=== PATIENT | female | born 1940 | race Caucasian/White ===

== ENCOUNTER 2017-01-03 11:08 | Day surgery (SDC) | payer MEDICARE, MEDICAID ==
--- NOTE | 2017-01-03 00:18 | HP ---
HISTORY OF PRESENT ILLNESS: Kay Pemberton is a 76-year-old female, who was brought in by E . She lives at [facility]. She dialyzes Monday, Monday, and Monday at [facility], she is followed by Dr. Reno. She has a poorly functioning dialysis catheter right IJ, I have been asked to see regarding exchange. She arrives to my office today. We will plan this tomorrow. The patient had a left arm fistula on 12/11/2016, subsequent thrombectomy on 12/06/2016 and at that time, a thro mbectomy was not evident while fistula had thrombosed. She has outflow through the cephalic and bas ilic vein anatomically cephalic vein preferred. Davis catheter placed through the cephalic vein wit hout restriction. The patient in the office today has a good thrill and bruit over the fistula, it seemed to have prominent outflow to the basilic vein. She has arrives to office on the stretcher. Plan is to replace her dialysis catheter tomorrow. In fact the catheter does work, but it is very s low. MEDICATIONS: Levothyroxine daily 88 mcg, amlodipine 5 mg a day, Zetia daily, atenolol 25 mg a day, trazodone 50 mg at bedtime, omeprazole 40 mg a day, bupropion daily, Bactrim-DS, Folvite, ferrous cassidy lfate, Procrit, and Rocaltrol. PAST MEDICAL HISTORY: Hypothyroidism, hypertension, hypercholesterolemia, right leg weakness, mobil ity in a wheelchair, nonambulatory for 5 years, GERD, end-stage renal disease on maintenance dialysi s Monday, Monday, and Monday at [facility]. PAST SURGICAL HISTORY: Back surgeries x3, knee surgeries, laparoscopic cholecystectomy, primary fis lani with subsequent thrombectomy and revision on 12/06/2016. REVIEW OF SYSTEMS: Ten-point noncontributory. PHYSICAL EXAMINATION: VITAL SIGNS: 5 feet 9 inches, 98.6 degrees. HEAD, EYES, EARS, NOSE AND THROAT: Unremarkable. LUNGS: Clear to auscultation. CARDIAC: Regular without murmur or gallop. ABDOMEN: Soft and nontender. EXTREMITIES: Left arm fistula with good thrill and bruit, well-healed surgical incision, a right IJ dialysis catheter. ASSESSMENT AND PLAN: Dysfunctional catheter. We will plan exchange. She understands the risks and benefits and consents.
[2017-01-03 11:55] LABS: #Eosinphils 0.1 thou/uL (0.0-0.7); #Lymphocytes 1.1 thou/uL (1.20-3.40); #Monocytes 0.5 thou/uL (0.11-0.59); #Neutrophils 3.8 thou/uL (1.40-6.50); %Basophils 0.8 % (0.0-1.0); %Eosinophils 2.7 % (0.0-10.0); %Monocytes 8.7 % (0.0-10.0); Hematocrit 35.8 % (36.0-47.0); Mean Platelet Volume 8.7 fL (7.4-10.4); Red Blood Cell (RBC) Count 3.58 mill/uL (4.20-5.40); White Blood Cell (WBC) Count 5.6 thou/uL (4.8-10.8)
[2017-01-03 12:22] LABS: Anion Gap 13 mmol/L (10-20); BUN (Urea Nitrogen) 29 mg/dL (9.8-20.1); Calc. Creatinine Clearance 0 mL/min (70-130); Calcium 8.9 mg/dL (7.8-10.44); Carbon Dioxide 31 mmol/L (23-31); Chloride 102 mmol/L (98-107); Estimated GFR-MDRD 13
[2017-01-03] MEDS ORDERED: Fentanyl 100 MCG/2 ML VIAL ONE (14:15)
[2017-01-03] MEDS ORDERED: Heparin 10,000 UNITS/1 ML VIAL ONE (14:16)
[2017-01-03] MEDS ORDERED: Sodium Chloride 0.9% 10 ML ONE (14:16)
[2017-01-03] MEDS ORDERED: Bupivacaine HCl 0.5%/Epinephrine 1:200,000/PF 30 ml Vial ONE (14:16)
[2017-01-03] MEDS ORDERED: Levofloxacin 500 mg/D5W 100 ml Premix Bag ONE (14:23)
[2017-01-03] MEDS ORDERED: Lidocaine 2% PF 10 ML AMP (For Epidural Use) ONE (14:39)
[2017-01-03] MEDS ORDERED: Propofol 200 MG/20 ML VIAL ONE (14:39)
--- NOTE | 2017-01-03 17:48 | RAD ---
PORTABLE CHEST: 01/03/17 HISTORY: Dialysis catheter placement to assess central line position. COMPARISON: 11/30/16. A large caliber dual lumen central line has been placed via the right jugular. The line overlies th e SVC. Mild cardiomegaly again noted. The lung covarrubias are clear. IMPRESSION: Mild cardiomegaly with no evidence of acute lung process. POS: [facility]
--- NOTE | 2017-01-03 21:30 | OP ---
DATE OF PROCEDURE: PREOPERATIVE DIAGNOSIS: End-stage renal disease, immature left arm fistula, dysfunctional dialysis catheter, right internal jugular. POSTOPERATIVE DIAGNOSIS: End-stage renal disease, immature left arm fistula, dysfunctional dialysis catheter, right internal jugular. PROCEDURE: Removal of right IJ cuffed tunnel dialysis catheter. Placement of new right IJ cuffed t unnel dialysis catheter. SURGEON: Dr. Clifton Randhawa ANESTHESIA: Intravenous sedation and local 0.5% Marcaine with epinephrine 30 mL mixed with 2% Xyloc samir 10 mL. Fluoroscopy used. PROCEDURE IN DETAIL: The patient was taken to the operating room where under intravenous sedation, the sutures from the old catheter removed. The cuff freed and the chest and neck prepared with chlo raprep, draped in routine fashion. Local anesthetic infiltrated into skin and subcutaneous tissue a bout the operative site. Incision made in the right side of the neck and the old hemodialysis letty ter pulled out slightly, controlled with hemostats, transected, and the old hemodialysis catheter re moved. ChloraPrep reprepped the area and then J-wire threaded through the old hemodialysis catheter and a slightly longer catheter tunneled between a new exit site infraclavicular over the right ches t to the neck incision, placing the fabric cuff beneath the skin incision and catheter secured with 2 interrupted sutures of 3-0 nylon, Biopatch applied. Dilator and pull-away sheath placed over the J-wire and J-wire and dilator removed. Catheter placed through a pull-away sheath. Pull-away sheat h removed. Platysma approximated with 4-0 Monocryl, skin with subdermal 4-0 Monocryl and DermaGlue applied. Dermabond applied. Each port aspirated blood and flushed with saline solution and then he parinized saline solution 1000 units heparin per mL indicated volume of the port. Fluoroscopy revea led good line placement.
== END 2017-01-04 16:55 | disposition home or self-care (01) ==
LOC: SDC 11:08
PROVIDERS: ATTEND Specialist
PROC: 05HM33Z Insertion of Infusion Device into Right Internal Jugular Vein, Percutaneous Approach (ICD-10-PCS; principal; 2017-01-03)
PROC: B513ZZA Fluoroscopy of Right Jugular Veins, Guidance (ICD-10-PCS; 2017-01-03)
DX: I12.0 Hypertensive chronic kidney disease with stage 5 chronic kidney disease or end stage renal disease (principal); T82.898A Other specified complication of vascular prosthetic devices, implants and grafts, initial encounter; D63.1 Anemia in chronic kidney disease; N18.6 End stage renal disease; K21.9 Gastro-esophageal reflux disease without esophagitis; M16.11 Unilateral primary osteoarthritis, right hip; E03.9 Hypothyroidism, unspecified; Z74.09 Other reduced mobility; Z79.899 Other long term (current) drug therapy; Z88.0 Allergy status to penicillin; Z99.3 Dependence on wheelchair; Z99.2 Dependence on renal dialysis; Z90.49 Acquired absence of other specified parts of digestive tract; Z98.890 Other specified postprocedural states; Z87.891 Personal history of nicotine dependence
CPT/HCPCS: 36582; 71010; 80048; 85025; C1752; C1769; A4216; J0670; J1644; J1956; J2001; J2704; J3010

== ENCOUNTER 2017-02-14 11:44 | Day surgery (SDC) | payer MEDICARE, MEDICAID ==
--- NOTE | 2017-02-10 05:50 | HP ---
HISTORY OF PRESENT ILLNESS: Kay Pemberton is a 76-year-old female arrives in my office in a [facility]. Patient is a resident of [facility]. She is followed by Dr. Orlando and Dr. Serra and Dr. Reno. She dialyzes at [facility] Monday, Monday, and Monday; [facility]. She has end-stage renal disease. The patient had a left arm fistula on 12/11/2016, subsequent thrombectomy 12/06/2016 and at that time of the thrombectomy, it was not evident why the fistula had thrombosed. Intraoperative angiograms revealed good cephalic vein outflow. There seemed to be good inflow fro m the proximal radial artery once thrombus was cleared. She presents to my office today and her fis lani is thrombosed. She has recently good veins in her right arm, but it is felt that the left nond ominant arm should be able to be salvaged. Plan is to revise her arterial inflow from her proximal radial artery to basilic vein using her antecubital vein or basilic vein. MEDICATIONS: Levothyroxine 88 mcg a day, amlodipine 5 mg a day, Zetia daily, atenolol 25 mg a day, trazodone 50 mg at bedtime, omeprazole 40 mg a day, Bupropion daily, ferrous sulfate, Procrit, Rocal trol. PAST MEDICAL HISTORY: Hypothyroidism, hypertension, hypercholesterolemia, right leg weakness, mobil ity in a wheelchair, nonambulatory for 5 years, GERD, end-stage renal disease on maintenance dialysi s Monday, Monday, and Monday at [facility], followed by Dr. Reno. PAST SURGICAL HISTORY: Back surgeries x3, knee surgeries, laparoscopic cholecystectomy, primary fis lani, subsequent thrombectomy and revision subsequent to exchange of her catheters REVIEW OF SYSTEMS: Ten point noncontributory. PHYSICAL EXAMINATION: VITAL SIGNS: 112/65, 69, 99 degrees. HEENT: Unremarkable. LUNGS: Clear to auscultation. CARDIAC: Regular rate and rhythm without murmur or gallop. ABDOMEN: Soft, nontender. EXTREMITIES: Left arm fistula, no thrill or bruit. Palpable radial pulses. ASSESSMENT AND PLAN: Thrombosed left arm fistula. Planned revision. She understands the risks and benefits and consents. Planned this as an outpatient.
[2017-02-13 11:56] VITALS: BMI 25.1
[2017-02-14] MEDS ORDERED: Fentanyl 100 MCG/2 ML VIAL ONE ×3 (13:57→16:51)
[2017-02-14] MEDS ORDERED: Levofloxacin 500 mg/D5W 100 ml Premix Bag ONE (14:05)
[2017-02-14] MEDS ORDERED: Heparin 5,000 UNITS/ML VIAL ONE (14:41)
[2017-02-14] MEDS ORDERED: Bupivacaine PF 0.5% 30 ML VIAL ONE (14:42)
[2017-02-14] MEDS ORDERED: Lidocaine 2% w/Epinephrine 1:200K 20 ML VIAL ONE (14:43)
[2017-02-14] MEDS ORDERED: Protamine Sulfate 50 MG/5 ML VIAL ONE (14:53)
[2017-02-14] MEDS ORDERED: Ropivacaine 0.5% HCl/PF (150 MG/30 ML VIAL) ONE (15:20)
[2017-02-14] MEDS ORDERED: Iothalamate Meglumine 60% 50 ML VIAL FS ONE (15:38)
[2017-02-14] MEDS ORDERED: Heparin 10,000 UNITS/ 10 ML VIAL ONE (17:36)
--- NOTE | 2017-02-14 21:35 | OP ---
DATE: 02/14/2017 PREOPERATIVE DIAGNOSIS: End-stage renal disease, thrombosed fistula, left arm. POSTOPERATIVE DIAGNOSIS: End-stage renal disease, thrombosed fistula, left arm. PROCEDURES: Thrombectomy, left arm primary arteriovenous fistula, cephalic vein with conversion of arterial inflow from the proximal radial artery to the brachial artery. SURGEON: Dr. Clifton Randhawa. ANESTHESIA: Regional, intravenous sedation, local 0.5% Marcaine, 30 mL mixed with 2% Xylocaine with epinephrine, 10 mL mixture used. PROCEDURE: Patient taken to the operating room where under regional anesthesia, left upper extremit y was prepared with chloraprep, draped in routine fashion. Incision made in the proximal volar fore arm through the old incision across the antecubital fossa superiorly. Incision carried through skin and subcutaneous tissue. Cephalic vein identified, dissected free, dissected down to the arterial inflow, was communication to the basilic vein. Dissection carried down to near the arterial inflow and then the stump ligated with a 6-0 Prolene to and fro locking suture. Patient given 5000 units o f heparin intravenously. Brachial artery dissected free. Thrombectomy performed with a 5-Suzanne c atheter, removing a small amount of clot, otherwise flushed with heparinized saline solution without resistance. The Suzanne catheter placed more than 40 cm without restriction. At this point, brach ial artery was clamped proximally and distally and longitudinal arteriotomy made sharply and a annabelle l size good caliber brachial artery and the cephalic vein spatulated over branch point and end vein to side brachial artery anastomosis created with continuous suture of 6-0 Prolene. Surgicel applied . Vascular clamps were released and there was good flow in the fistula evident by Doppler interroga tion and palpation. Good hemostasis noted. Subcutaneous tissues approximated with 3-0 Monocryl, sk in with subdermal 4-0 Monocryl and DermaGlue applied.
== END 2017-02-14 18:43 | disposition home or self-care (01) ==
LOC: SDC 11:44
PROVIDERS: ATTEND Specialist
PROC: 031C0AF Bypass Left Radial Artery to Lower Arm Vein with Autologous Arterial Tissue, Open Approach (ICD-10-PCS; principal; 2017-02-14)
DX: I12.0 Hypertensive chronic kidney disease with stage 5 chronic kidney disease or end stage renal disease (principal); N18.6 End stage renal disease; E03.9 Hypothyroidism, unspecified; E78.00 Pure hypercholesterolemia, unspecified; K21.9 Gastro-esophageal reflux disease without esophagitis; Z88.0 Allergy status to penicillin; Z79.899 Other long term (current) drug therapy; Z98.890 Other specified postprocedural states; Z99.2 Dependence on renal dialysis
CPT/HCPCS: 96374; J0131; J1644; J1956; J2720; J2795; J3010; Q9961; S0020

== ENCOUNTER → 2017-08-11 | Day surgery (SDC) | payer MEDICARE, MEDICAID ==
[2017-08-10 12:47] VITALS: BMI 25.2
[~2017-08-11] MED LIST: Fentanyl 100 MCG/2 ML VIAL ONE; HYDROcodone/Acetaminophen 5/325 mg Tablet ONE
[2017-08-11 10:05] VITALS: TEMP 97.5
--- NOTE | 2017-08-11 11:45 | SPC ---
LEFT UPPER EXTREMITY DIALYSIS FISTULOGRAM PERCUTANEOUS BALLOON ANGIOPLASTY LEFT CEPHALIC VEIN: MEDICATION: 25 mcg Fentanyl, IV. HISTORY: Renal failure. Poor function left upper extremity dialysis fistula. Fluoro time=5.4 minutes. FINDINGS: After explaining the procedure and answering all questions, the left upper extremity was prepped and draped in the usual sterile fashion. Sterile technique and buffered local anesthesia were used to ac cess the left upper arm dialysis fistula cephalic vein just above the level of the antecubital fossa. A 4 Kinyarwanda sheath was placed for serial imaging, showing the cephalic vein at the level of the mid to distal humerus to be approximately 0.7 cm. Large collateral veins arise from the mid to distal po rtion of the vein. At the level of the mid humeral shaft, there is initially complete occlusion of t he emmonak cephalic vein. Imaging centrally shows patency of the superior vena cava and central venous structures. Right inter nal jugular dialysis catheter is partially visualized. Reflux angiogram shows patent arterial inflow . A 0.035 Glidewire was placed and the sheath was exchanged for a 5 Kinyarwanda introducer sheath. A 5 Fren ch glide catheter was carefully placed to the level of the cephalic vein obstruction. A deep 0.035 G lidewire was carefully manipulated through the collapsed cephalic venous outflow to the central vascu lature. The catheter was then able to be passed over the wire, however. A 6 mm x 4 cm dilatation balloon was then carefully placed to the level of cephalic narrowing over th e Glidewire. This was to the level of the proximal humeral shaft. The balloon was carefully inflate d, achieving full balloon profile. Serial dilatations were made more peripherally. AT the level of the mid humeral shaft, a focal area of significant stenosis was relieved by achieving full balloon pr ofile. Repeat imaging showed the [place] cephalic vein to barely be patent along the course of the wi re. At the level of the mid humeral shaft, the stenosis had been relieved. The catheter was still u nable to be passed along the length of the proximal humeral shaft. The catheter and sheath were removed and hemostasis obtained using direct pressure. The patient nohelia rated the procedure well and was eventually dismissed in good condition. IMPRESSION: Initial log-segment occlusion of the em[place] central cephalic venous outflow from the dialysis fistula . Successful balloon angioplasty of the primary stricture at the level of the mid humeral shaft impr gunjan flow slightly. Hopefully, the baptist of slightly flow will allow the emmon[place] cephalic vein to continue to mature as the dominant fistula. The large and abundant venous collaterals, however, nevertheless provide good flow from the mid to pe ripheral portion of the cephalic venous fistula. Beyond the level of the mid humeral shaft, the fist destiny should be ready for access for dialysis. POS: [facility]
== END ==
LOC: EDBD → SPEC 07:01
PROVIDERS: ATTEND Specialist
PROC: 057F3ZZ Dilation of Left Cephalic Vein, Percutaneous Approach (ICD-10-PCS; principal; 2017-08-11)
DX: T82.858A Stenosis of other vascular prosthetic devices, implants and grafts, initial encounter (principal); I12.0 Hypertensive chronic kidney disease with stage 5 chronic kidney disease or end stage renal disease; N18.6 End stage renal disease; Z99.2 Dependence on renal dialysis; Z79.899 Other long term (current) drug therapy; Z88.0 Allergy status to penicillin
CPT/HCPCS: 36901; 36902; C1725; C1769; J3010

== ENCOUNTER 2017-08-29 11:32 | Day surgery (SDC) | payer MEDICARE, MEDICAID ==
[2017-08-29] MEDS ORDERED: CEFAZOLIN/Water 2 GM/20 ML SYRINGE ONE (13:15)
[2017-08-29 13:19] LABS: #Eosinphils 0.2 thou/uL (0.0-0.7); #Lymphocytes 1.3 thou/uL (1.20-3.40); #Monocytes 0.5 thou/uL (0.11-0.59); #Neutrophils 4.3 thou/uL (1.40-6.50); %Basophils 0.7 % (0.0-1.0); %Lymphocytes 20.9 % (21.0-51.0); %Neutrophils 67.4 % (42.0-75.0); Hemoglobin 11.8 g/dL (12.0-16.0); Mean Corpuscular HGB CONC 32.7 g/dL (32.0-36.0); Mean Corpuscular Hemoglobin 32.7 pg (27.0-31.0); Mean Corpuscular Volume 99.9 fl (81.0-99.0); Mean Platelet Volume 8.2 fL (7.4-10.4); Platelet Count 178 thou/uL (130-400); RBC Distribution Width 14.5 % (11.5-14.5); Red Blood Cell (RBC) Count 3.63 mill/uL (4.20-5.40); White Blood Cell (WBC) Count 6.3 thou/uL (4.8-10.8)
[2017-08-29] MEDS ORDERED: Bupivacaine HCl 0.5%/Epinephrine 1:200,000/PF 30 ml Vial ONE ×2 (13:19→15:10)
[2017-08-29] MEDS ORDERED: Fentanyl 100 MCG/2 ML VIAL ONE ×2 (13:29→14:23)
[2017-08-29 13:44] LABS: Anion Gap 16 mmol/L (10-20); BUN (Urea Nitrogen) 43 mg/dL (9.8-20.1); Calc. Creatinine Clearance 0 mL/min (70-130); Calcium 8.8 mg/dL (7.8-10.44); Carbon Dioxide 26 mmol/L (23-31); Chloride 103 mmol/L (98-107); Estimated GFR-MDRD 12; Glucose 82 mg/dL (83-110); Potassium 4.1 mmol/L (3.5-5.1); Sodium 141 mmol/L (136-145)
[2017-08-29] MEDS ORDERED: Protamine Sulfate 50 MG/5 ML VIAL ONE (14:39)
[2017-08-29] MEDS ORDERED: Heparin 5,000 UNITS/ML VIAL ONE (14:39)
[2017-08-29] MEDS ORDERED: Lidocaine 2% 10 ML INJ ONE (15:10)
[2017-08-29] MEDS ORDERED: Meperidine HCl/PF 25 MG/ML VIAL ONE (16:37)
[2017-08-29] MEDS ORDERED: Heparin 10,000 UNITS/ 10 ML VIAL ONE (17:03)
--- NOTE | 2017-08-29 21:06 | OP ---
DATE OF PROCEDURE: 08/29/2017 PREOPERATIVE DIAGNOSES: Dysfunctional left arm AV fistula with outflow obstruction, cephalic vein oc clusion, proximal left upper arm status post previous revision from proximal artery to brachial arter y arterial inflow. SURGEON: Clifton Randhawa M.D. ANESTHESIA: Regional TIVA. Local 0.5% Marcaine with epinephrine 30 mL mixed with 2% Xylocaine, 10 m L. PROCEDURE: Basilic vein transposition, revision of left upper arm cephalic vein outflow. SURGEON: Clifton Randhawa M.D. PROCEDURE IN DETAIL: The patient was taken to the operating room where under regional anesthesia and intravenous sedation, left upper extremity, axilla, shoulder prepared with ChloraPrep, draped in rou apolinar fashion. Incision made in the left axilla, medial upper arm carried through skin and subcutaneu s tissue and deep fascia, identifying the basilic vein, dissecting free, dividing branch with 4-0 piper k ties, 3-0 silk ties, and clips. It was dissected free down to the distal medial upper arm and stum p ligated with 3-0 silk tie and divided and brought and flushed with heparinized saline solution. Th e patient had given 6000 units heparin intravenously. An incision had been made over the cephalic ve in outflow upper arm in the area where it was palpated to be occluded. Incision carried through skin and subcutaneous tissue. A fibrotic proximal end of the vein identified. A soft portion of vein id entified and a collateral vein noted laterally that maintain patency of this fistula despite cephalic vein outflow occlusion. This outflow vein was dissected free and doubly clipped on branches and div ided. It had excellent arterial inflow from previous arterialization from the brachial artery. The basilic vein had been tunneled through the incision connecting the two incisions, then flushed with h eparin saline solution. Had good flow. Both vein spatulated and accordingly anastomosed end to end with continuous suture of 6-0 Prolene, releasing vascular control, noting excellent signal in the fis lani outflow. The patient given 25 mg protamine intravenously. Subcutaneous tissues approximately 3 -0 Monocryl, skin with subdermal 4-0 Monocryl and DermaGlue applied.
== END 2017-08-29 17:54 | disposition home or self-care (01) ==
LOC: SDC 11:32
PROVIDERS: ATTEND Specialist
PROC: 03WY03Z Revision of Infusion Device in Upper Artery, Open Approach (ICD-10-PCS; principal; 2017-08-29)
DX: T82.590A Other mechanical complication of surgically created arteriovenous fistula, initial encounter (principal); I12.0 Hypertensive chronic kidney disease with stage 5 chronic kidney disease or end stage renal disease; N18.6 End stage renal disease; K21.9 Gastro-esophageal reflux disease without esophagitis; E78.00 Pure hypercholesterolemia, unspecified; E03.9 Hypothyroidism, unspecified; Z88.0 Allergy status to penicillin; Z98.890 Other specified postprocedural states; Z99.2 Dependence on renal dialysis
CPT/HCPCS: 80048; 85025; 93005; 93010; J0131; J0670; J1644; J2175; J2720; J3010

== ENCOUNTER 2017-10-31 00:20 | Emergency (ER) | payer MEDICARE, MEDICAID ==
[2017-10-31] MEDS ORDERED: oxyCODONE/Acetaminophen 5 mg/325 mg Tablet PO SCH (00:45)
== END 2017-10-31 01:58 ==
LOC: ERS 00:20
DX: Z76.0 Encounter for issue of repeat prescription (principal); E03.9 Hypothyroidism, unspecified; F41.9 Anxiety disorder, unspecified; F32.9 Major depressive disorder, single episode, unspecified; Z87.891 Personal history of nicotine dependence; Z79.899 Other long term (current) drug therapy
CPT/HCPCS: 93005

== ENCOUNTER 2018-09-09 02:16 | Inpatient (IN) | payer MEDICARE ==
[2018-09-09 02:45] LABS: Hemoglobin 12.7 g/dL (12.0-16.0); Mean Corpuscular HGB CONC 32.9 g/dL (32.0-36.0); Mean Corpuscular Hemoglobin 32.7 pg (27.0-31.0); Mean Corpuscular Volume 99.1 fL (78.0-98.0); Mean Platelet Volume 8.8 fL (7.4-10.4); Platelet Count 156 thou/uL (130-400); RBC Distribution Width 13.7 % (11.5-14.5); Red Blood Cell (RBC) Count 3.88 mill/uL (4.20-5.40); White Blood Cell (WBC) Count 11.1 thou/uL (4.8-10.8)
[2018-09-09] MEDS ORDERED: Cefepime 2 GM VIAL ONE (02:53)
[2018-09-09] MEDS ORDERED: Sodium Chloride 0.9% 100 ML ONE (02:53)
[2018-09-09] MEDS ORDERED: Ondansetron PF 4 MG/2 ML Vial ONE (02:53)
[2018-09-09 03:03] LABS: Band 10 % (5-11); Lymphocytes 2 % (21-51); MDiff Complete? YES; Neutrophil 88 % (42-75); Platelet Morphology Comment Appears Adequate; RBC Morphology Normal
[2018-09-09 03:11] LABS: ALT (SGPT) 12 U/L (8-55); AST (SGOT) 17 U/L (5-34); Albumin 3.6 g/dL (3.4-4.8); Alkaline Phosphatase 72 U/L (40-150); Anion Gap 22 mmol/L (10-20); BUN (Urea Nitrogen) 70 mg/dL (9.8-20.1); Bilirubin, Total 0.5 mg/dL (0.2-1.2); Calc. Creatinine Clearance 0 mL/min (70-130); Calcium 8.8 mg/dL (7.8-10.44); Carbon Dioxide 23 mmol/L (23-31); Chloride 101 mmol/L (98-107); Estimated GFR-MDRD 11; Globulin 2.3 g/dL (2.4-3.5); Glucose 111 mg/dL (83-110); Lipase 55 U/L (8-78); Protein, Total 5.9 g/dL (6.0-8.3); Sodium 141 mmol/L (136-145)
[2018-09-09] MEDS ORDERED: Promethazine HCl 25 MG/ML VIAL ONE (04:09)
[2018-09-09] MEDS ORDERED: Vancomycin HCl 1.5 GM in Sodium Chloride 0.9% 250 ML 300 ML IVPB ONE (04:45)
--- NOTE | 2018-09-09 06:29 | PDOC.FPRHP ---
- History of Present Illness Chief Complaint: Nausea, vomiting, shortness of breath History of Present Illness: Ms Pemberton is a 77yo female with pmh of ESRD on HD MWF, HLD, HTN, iron/folate def anemia presenting from the [facility] with nausea, vomiting and diarrhea. Reports vomiting started yesterday around noon. Also had an episode of incontinence with diarrhea. Reported fever overnight at the long-term. Not able to tolerate PO for the last day. Pt makes urine. Was seen by her PCP on for dysuria that started Monday. Feels that she has some urinary retention, had relief after a straight cath the other day. PCP: GEORGE (Constantine) ED Course: Cefepime 2g, Vanc 1.5g, Zofran 4mg and Phenergan 15mg. WBC 11.1 Febrile 100.9 - Allergies/Adverse Reactions Allergies Allergy/AdvReac Type Severity Reaction Status Date / Time Penicillins Allergy Verified 08/28/17 08:51 - Home Medications Medication Instructions Recorded Confirmed Type Ezetimibe [Zetia] 10 mg PO DAILY 07/12/15 09/09/18 History Levothyroxine Sodium 88 mcg PO QAM 07/12/15 09/09/18 History Omeprazole 40 mg PO DAILY 07/12/15 09/09/18 History Cyanocobalamin (Vitamin B-12) 1,000 mcg PO DAILY #0 tab 07/20/15 09/09/18 Rx [Vitamin B-12] Ferrous Sulfate [Feosol] 325 mg PO QA- #0 tab 07/20/15 09/09/18 Rx Folic Acid [Folvite] 1 mg PO DAILY #0 tab 07/20/15 09/09/18 Rx traZODone HCl 50 mg PO HS #0 tablet 07/20/15 09/09/18 Rx Ondansetron HCl [Zofran] 4 mg PO Q4HR PRN 11/28/16 09/09/18 History rOPINIRole HCl [Requip] 0.5 mg PO HS 11/28/16 09/09/18 History Acetaminophen [Tylenol Arthritis] 650 mg PO BID PRN 09/09/18 09/09/18 History DULoxetine [Cymbalta] 60 mg PO QAM 09/09/18 09/09/18 History Dexamethasone 2 mg PO QAM 09/09/18 09/09/18 History Lidocaine [Lidocaine Pain Relief] 1 patch TOP DAILY PRN 09/09/18 09/09/18 History Magnesium Hydroxide [Milk Of 30 ml PO DAILY PRN 09/09/18 09/09/18 History Magnesium] OxyCONTIN 40 mg PO Q12H PRN 09/09/18 09/09/18 History Sevelamer Carbonate [Renvela] 800 mg PO TID 09/09/18 09/09/18 History Warfarin Sodium [Coumadin] 3 mg PO 1800 09/09/18 09/09/18 History oxyCODONE HCl/Acetaminophen 1 tab PO Q4H 09/09/18 09/09/18 History [Percocet] - History PMHx: HLD, HTN, ESRD on HD MWF, Iron def/folate anemia, OA, hypothyroidism, chronic back pain PSHx: Back surgery x3, Knee surgeries, cholecystectomy, fistula dialysis access FHx: Noncontributory Social: 20 pack yr smoking hx quit many years ago. Denies alcohol or drug use. - Review of Systems General: reports: fever/chills, weight/appetite/sleep changes (anorexia) Eyes: denies: eye pain, vision changes ENT: denies: nasal congestion, rhinorrhea Respiratory: denies: cough, congestion, shortness of breath Cardiovascular: denies: chest pain, palpitation Gastrointestinal: reports: nausea, vomiting, diarrhea, abdominal pain. denies: constipation Genitourinary: reports: incontinence, dysuria Skin: denies: rashes, lesions Musculoskeletal: reports: pain, arthritis/arthralgias Neurological: denies: numbness, weakness - Vital signs BP: 93/45 HR: 88 RR: 20 Tmax: 100.9 Pox: 96% on RA Wt: 77kg - Physical Exam -Constitutional: In distress, vomiting HEENT: normocephalic and atraumatic, conjunctiva clear, MMM, oropharynx clear Neck: supple, trachea midline Heart: RRR, other (radial pulses 2+ b/l dorsalis pedis 2+ right, unable to palpate on left) Lungs: CTAB, no respiratory distress Abdomen: soft, non-tender, bowel sounds present Musculoskeletal: normal structure, normal tone, ROM grossly normal Neurological: no focal deficit Skin: capillary refill <2 seconds -Skin: left foot: wounds at distal 1st and 5th digits. Psychiatric: normal mood and affect, good judgment and insight, intact recent and remote memory FMR H&P: Results - Labs Result Diagrams: 09/09/18 02:32 09/09/18 02:32 Lab results: WBC 11.1 thou/uL (4.8-10.8) H 09/09/18 02:32 Hgb 12.7 g/dL (12.0-16.0) 09/09/18 02:32 Hct 38.4 % (36.0-47.0) 09/09/18 02:32 MCV 99.1 fL (78.0-98.0) H 09/09/18 02:32 Plt Count 156 thou/uL (130-400) 09/09/18 02:32 Band Neuts % (Manual) 10 % (5-11) 09/09/18 02:32 Sodium 141 mmol/L (136-145) 09/09/18 02:32 Potassium 5.0 mmol/L (3.5-5.1) 09/09/18 02:32 Chloride 101 mmol/L (98-107) 09/09/18 02:32 Carbon Dioxide 23 mmol/L (23-31) 09/09/18 02:32 BUN 70 mg/dL (9.8-20.1) H 09/09/18 02:32 Creatinine 3.82 mg/dL (0.6-1.1) H 09/09/18 02:32 Glucose 111 mg/dL (83-110) H 09/09/18 02:32 Lactic Acid 3.2 mmol/L (0.5-2.2) H 09/09/18 02:32 Calcium 8.8 mg/dL (7.8-10.44) 09/09/18 02:32 Total Bilirubin 0.5 mg/dL (0.2-1.2) 09/09/18 02:32 AST 17 U/L (5-34) 09/09/18 02:32 ALT 12 U/L (8-55) 09/09/18 02:32 Alkaline Phosphatase 72 U/L (40-150) 09/09/18 02:32 Serum Total Protein 5.9 g/dL (6.0-8.3) L 09/09/18 02:32 Albumin 3.6 g/dL (3.4-4.8) 09/09/18 02:32 Lipase 55 U/L (8-78) 09/09/18 02:32 - EKG Interpretation EKG: normal sinus rhythm, Rate (beats per minute): 84, with premature atrial complexes, Conduction normal, T waves normal, Iron normal, Clinical impression: , non-specific EKG. - Radiology Interpretation Chest x-ray Status: pending CT scan - abdomen Status: report reviewed by me Additional comment: Prelim result: Large hiatal hernia. Left adnexal simple cyst 4.9cm. Mild bladder wall thickening and stranding. Nonspecific dilation of common bile duct to 1.2cm. FMR H&P: A/P - Problem List (1) Sepsis secondary to UTI Current Visit: Yes Status: Acute Code(s): A41.9 - SEPSIS, UNSPECIFIED ORGANISM; N39.0 - URINARY TRACT INFECTION, SITE NOT SPECIFIED (2) Anemia Current Visit: No Status: Acute Code(s): D64.9 - ANEMIA, UNSPECIFIED (3) Chronic low back pain Current Visit: No Status: Chronic Code(s): M54.5 - LOW BACK PAIN; G89.29 - OTHER CHRONIC PAIN (4) CKD (chronic kidney disease) stage 4, GFR 15-29 ml/min Current Visit: No Status: Chronic Code(s): N18.4 - CHRONIC KIDNEY DISEASE, STAGE 4 (SEVERE) (5) Folate deficiency Current Visit: No Status: Chronic Code(s): E53.8 - DEFICIENCY OF OTHER SPECIFIED B GROUP VITAMINS (6) GERD (gastroesophageal reflux disease) Current Visit: No Status: Chronic Code(s): K21.9 - GASTRO-ESOPHAGEAL REFLUX DISEASE WITHOUT ESOPHAGITIS (7) HTN (hypertension) Current Visit: No Status: Chronic Code(s): I10 - ESSENTIAL (PRIMARY) HYPERTENSION (8) Hypothyroidism Current Visit: No Status: Chronic Code(s): E03.9 - HYPOTHYROIDISM, UNSPECIFIED (9) Obesity Current Visit: No Status: Chronic Code(s): E66.9 - OBESITY, UNSPECIFIED (10) Physical deconditioning Current Visit: No Status: Chronic Code(s): R53.81 - OTHER MALAISE (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 - Continue Cefepime and Vancomycin - Phenergan and Zofran PRN for nausea, vomiting - Clear liquid diet - Admit to medical Diarrhea - Stool studies including C diff ordered Recent dx of LE DVTs - Continue Coumadin, will increase dose to 4mg x1 - INR 1.9 Iron/folate/B12 def anemia - Hgb 11.1 - Continue home meds Generalized weakness and deconditioning - PT/OT HLD - Continue home meds Hypothyroidism - Continue home meds HTN - Continue home meds Peptic Ulcer disease - Continue home meds Code Status: DNR DVT ppx: Coumadin PP: TAMP (Muehr) Pt discussed and seen by Dr Mariscal FMR H&P: Upper Level - Pertinent history Mrs. Pemberton is a 77 yr old female resident at the [facility] who was snet over from the [place] for nausea and vomiting and fever for approx 15 hours. She notes vomiting that started at noon yesterday and has vomiting alot of mucousy slime time consistency overnight until coming in. She vomits twice in the room while seeing her. She reports no abdominal pain but has significant nausea taht is worst just before vomiting. She denies chest pain, SOB, heache. She has stool incontinence yesterday. No reported blood. She was recently diagnosed with DVT and is on coumadin. She also has new toe blisters/ulcers that are being worked up outpatient by podiatry. A CV surgery consult has been placed. - Pertinent findings Gen: patient appears in discomfort and is having active vomiting in the room Heart: RRR, no M/R/G Lungs:CTAB, no wheezes, rhales, rhonchi Abd: normal active BS, soft, nontender to palpation, no guarding or rebound MSK: No CVA tenderness Ext: 1+ edema in LLE, ext warm to touch, left 5th digit ulcer/blister, right 1 & 2nd digit blister Neuro: alert and oreinted to person, place, time, and situation - Plan Date/Time: 09/09/18 [id number] I, [Shonda Fitch], have evaluated this patient and agree with findings/plan as outlined by internet webmaster resident. Pertinent changes/additions are listed here. 77 yr old female mild Sepsis 2/2 UTI -bladder wall thickening and stranding on CT -febrile, leukocytosis -urine culture from 2 days prior now resulted and showing enterococcus and psuedomonas auriginosa -started on cefepime and vanc in ED which cover well according to culture. -cont these -gentle fluids given she is ESRD probable gastroenteritis -PRN zofran or phenerga -stool studies and c diff anion gap metabolic acidosis likely 2/2 lactic acid -repeat lactic acid -small fluids given with antiboltics. -po hydration ESRD on HD -contact Dr. Reno -cont routine dialysis DVT -cont coumadin at 3 mg with twice a week dose of 4 mg please see internet webmaster note above for other chronic medical problems. Addendum - Attending - Attending Attestation Date/Time: 09/09/18 0748 I personally evaluated the patient and discussed the management with Drs. Shaffer and Constantine I agree with the History, Examination, Assessment and Plan documented above with any addition or exceptions noted below. well known 77 yo female local [place] patient with ESRD on HD, chronic pain, recent DVT LLE and foot wound with history of PVD. Patient with recent UTI and admitted for further control retractable emesis felt secondary to AGE. Will admit r/o sepsis notify Nephrology of inpt status for continued HD. consult wound therapy regard R foot wound recently evaluated by Podiatry.
[2018-09-09] MEDS ORDERED: Ondansetron PF 4 MG/2 ML Vial IVP PRN ×2 (06:35→07:18)
[2018-09-09] MEDS ORDERED: Ondansetron ODT 4 MG TAB SL PRN (06:35)
[2018-09-09] MEDS ORDERED: Promethazine HCl 25 MG/ML VIAL IM/IV PRN (07:18)
[2018-09-09] MEDS ORDERED: Ondansetron ODT 4 MG TAB PO PRN (07:18)
[2018-09-09] MEDS ORDERED: Acetaminophen ER (8hr) 650 MG TAB PO PRN (07:18)
[2018-09-09 07:29] LABS: Lactic Acid 2.2 mmol/L (0.5-2.2)
[2018-09-09] MEDS ORDERED: Vancomycin HCl 1 GM in Premix Bag 1 BAG IVPB SCH (08:15)
[2018-09-09] MEDS ORDERED: Vancomycin HCl 500 MG in Sodium Chloride 0.9% 100 ML IVPB SCH (08:15)
[2018-09-09] MEDS ORDERED: Vancomycin HCl 1.25 GM in Sodium Chloride 0.9% 250 ML 250 ML IVPB SCH (08:15)
[2018-09-09] MEDS ORDERED: Vancomycin Sliding Scale 1 EACH FS ONE (08:15)
[2018-09-09] MEDS ORDERED: Vancomycin HCl 750 MG in Sodium Chloride 0.9% 250 ML 250 ML IVPB SCH (08:15)
[2018-09-09] MEDS ORDERED: HOLD VANCOMYCIN FOR LEVEL >20 FS SCH (08:15)
[2018-09-09] MEDS: Ferrous Sulfate 325 MG TAB PO SCH (08:41)
[2018-09-09] MEDS: Sevelamer Carbonate 800 MG TAB PO SCH ×3 (08:42→20:43)
[2018-09-09] MEDS: DULoxetine 60 MG CAP PO SCH (08:42)
[2018-09-09] MEDS: Cyanocobalamin (Vitamin B-12) 1,000 MCG TAB PO SCH (08:42)
[2018-09-09] MEDS: Ezetimibe 10 MG TAB PO SCH (08:42)
[2018-09-09] MEDS: oxyCODONE/Acetaminophen 5 mg/325 mg Tablet PO SCH ×4 (08:42→20:48)
[2018-09-09] MEDS: Folic Acid 1 MG TAB PO SCH (08:43)
[2018-09-09] MEDS: Dexamethasone 4 MG TAB PO SCH (08:43)
--- NOTE | 2018-09-09 08:47 | CT ---
PRELIMINARY REPORT/[facility]/EMERGENTY AFTER-HOURS PROCEDURE CT Abdomen and Pelvis With Contrast EXAM DATE/TIME: 09/09/2018 3:06 AM CLINICAL HISTORY: 77 years old, female; Prior surgery; Patient HX: Er 6. Abdominal pain (generalized). PT C/O nausea an d vomiting. Fever. Surgical history of hernia repair, surgical history of hysterectomy, surgical hist ory of cholecystectomy. PT is poor historian TECHNIQUE: Imaging protocol: Axial computed tomography images of the abdomen and pelvis with intravenous contras t. Coronal reformatted images were created and reviewed. COMPARISON: No relevant prior studies available. FINDINGS: Lungs: Mild left lower lobe atelectasis. Elevation of the left hemidiaphragm. ABDOMEN: Liver: No mass. Gallbladder and bile ducts: The common bile duct is dilated to 1.2 cm. Pancreas: No mass or ductal dilation. Spleen: No mass. Adrenals: No mass. Kidneys and ureters: Bilateral renal cortical thinning. Bilateral renal cysts. No hydronephrosis. Stomach and bowel: Large hiatal hernia with the fundus of the stomach intrathoracic and partially vis ualized. Appendix: The appendix is not visualized. PELVIS: Bladder: Mild thickening and stranding of the bladder. Reproductive: The uterus is not visualized. Left adnexal simple appearing cyst measuring 4.9 cm. ABDOMEN and PELVIS: Intraperitoneal space: No free air or free fluid. Bones/joints: Old left-sided rib fracture. Chronic deformity of the right hip. Lower lumbar spine lencho gical hardware. Soft tissues: Left buttocks and hip soft tissue fat stranding without abscess formation. Small fat co ntaining left inguinal hernia. Vasculature: Severe atherosclerosis of the aorta without aneurysm. Lymph nodes: No lymphadenopathy. IMPRESSION: 1. Large hiatal hernia with the fundus and part of the body intrathoracic. 2. Left adnexal simple appearing cyst measuring 4.9 cm. Defer to on-site Radiologist for follow-up re commendations. 3. Mild bladder wall thickening and stranding could correlates with cystitis in the appropriate clini bryan setting. 4. Nonspecific dilation of the common bile duct to 1.2 cm. In the absence of obstructive laboratory v alues, this could be due to reservoir effect and age. Thank you for allowing us to participate in the care of your patient. Dictated and Authenticated by: Myrtle Cardona MD 09/09/2018 3:31 AM Central Time ([place] & [place]) FINAL REPORT CT ABDOMEN AND PELVIS WITH CONTRAST: Large fixed diaphragmatic hernia is noted as described on preliminary report. There is a 5 cm cystic mass in the upper left pelvis as noted on preliminary report. Mild intra- and extrahepatic biliary duct dilatation is seen. This may be due to patient's post chol ecystectomy status post as noted on the preliminary report. Correlate with liver function tests. Bladder wall thickening which appears nonspecific. I am in agreement with the preliminary report. The cystic mass in the left lower pelvis could be ovarian if ovaries remaining. The patient appears to be post hysterectomy. Other considerations include mesenteric cyst and duplication cyst. There a re no comparison studies. POS: OFF
--- NOTE | 2018-09-09 08:54 | RAD ---
PORTABLE CHEST: HISTORY: Fever. COMPARISON: 01/03/2017. FINDINGS: Cardiomegaly. Large-caliber central line is in place. The patient is rotated, which distorts the ch est. There is no evidence of infiltrate or vascular congestion. IMPRESSION: Cardiomegaly. No acute lung process identified. POS: OFF
[2018-09-09] MEDS ORDERED: Lidocaine 5% Patch TD PRN (09:00)
[2018-09-09 09:30] LABS: Phosphorus 3.7 mg/dL (2.3-4.7)
[2018-09-09] MEDS: oxyCODONE ER 20 MG TAB PO PRN (10:05)
[2018-09-09] MEDS ORDERED: Iopamidol 370 76% 100 ML VIAL ONE (11:16)
--- NOTE | 2018-09-09 11:32 | CON ---
DATE OF CONSULTATION: HISTORY OF PRESENT ILLNESS: Ms. Pemberton is a 77-year-old white female with known history of ESRD - currently on maintenance hemodialysis Monday, Monday, and Monday. She was admitted for nausea and vomiting, and concomitant finding of UTI. Currently, on empiric IV antibiotics. We are being consulted for her maintenance hemodialysis. REVIEW OF SYSTEMS: Positive for nausea and vomiting. Positive for chronic low back pain. Positive for diffuse joint pains. No abdominal pain. Occasional diarrhea. No headache. No diplopia. Appetite and energy level are fair. No sore throat. No hematochezia. No melena. No hematemesis. HOME MEDICATIONS: 1. Zetia 10 mg daily. 2. Levothyroxine 88 mcg q.a.m. 3. Omeprazole 40 mg tablet daily. 4. Vitamin B12 of 1000 mcg daily. 5. Ferrous sulfate 325 mg q.a.m. 6. Folic acid 1 mg daily. 7. Trazodone 50 mg at bedtime. 8. Zofran 4 mg q.4 p.r.n. 9. ReQuip 0.5 mg p.o. b.i.d. 10. Cymbalta 60 mg daily. 11. Dexamethasone 2 mg q.a.m. 12. Lidocaine patch daily. 13. OxyContin 40 mg q.12 p.r.n. 14. Renvela 800 mg one tablet p.o. t.i.d. 15. Coumadin as directed. PAST MEDICAL HISTORY: 1. 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 2. Hyperlipidemia. 3. Chronic anemia. 4. DJD. 5. Chronic low back pain. 6. Hypothyroidism. 7. Chronic pain. PAST SURGICAL HISTORY: Status post cuffed hemodialysis catheter placement, status post AV fistula placement, status post cholecystectomy, status post knee surgery, and status post back surgery. FAMILY HISTORY: No family history of ESRD. SOCIAL HISTORY: The patient is currently a assisted patient. She is single. No IV drug use. Status post blood transfusion. Smoked for 20 years, half a pack a day, currently not smoking. No alcohol. No drug abuse. Education, high school. 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 She is and has 4 children. ALLERGIES: PENICILLIN. TRAUMA: None. IMMUNIZATION: Up-to-date. HOSPITALIZATIONS: Please see past medical history. PHYSICAL EXAMINATION: VITAL SIGNS: Blood pressure is noted at 125/58, heart rate 75, respiratory rate 16, temperature 99.2, and pulse ox 91% room air. GENERAL: The patient is sleeping, but arousable, comfortable, and flat affect. SKIN: Adequate turgor. HEENT: Pinkish conjunctivae. Anicteric sclerae. NECK: No neck mass. No carotid bruits. No JVD. CHEST: No deformities. LUNGS: Clear breath sounds. HEART: Normal sinus rhythm. No murmur. No gallops. No rubs. ABDOMEN: Globular, soft, and nontender. No masses. EXTREMITIES: No edema. No deformities. LABORATORY DATA: Laboratories of September 07, 2018, urine C and S shows Pseudomonas/Enterococcus. ASSESSMENT AND PLAN: 1. The patient is currently receiving IV antibiotics for the urinary tract infection - currently on cefepime and status post vancomycin. 2. End-stage renal disease, we will schedule her for Monday, Monday, and Monday hemodialysis. I reviewed her last Kt/V and this is suggestive that she is adequately dialyzed with the current dialysis regimen. No emergent dialysis for today. 3. Chronic pain - currently on OxyContin. Overall agree with current management. Job ID: [id number]
[2018-09-09] MEDS ORDERED: Cefepime 1 GM in Sodium Chloride 0.9% 100 ML IVPB SCH (15:00)
[2018-09-09] MEDS: Cefepime 0.5 GM in Sodium Chloride 0.9% 100 ML IVPB SCH (15:27)
[2018-09-09] MEDS ORDERED: Warfarin Sodium 2 MG TAB PO SCH (17:00)
[2018-09-09 20:01] LABS: Bacteria/HPF Rare-Few HPF (None Seen); Bilirubin Negative (Negative); Blood, Urine Small (Negative); Clarity CLOUDY (Clear); Glucose, Urine (Dipstick) Negative (Negative); Hyaline Casts/LPF 0-3 HYALINE CAST LPF (0-3 Hyaline); Leukocyte Large (Negative); Nitrite Negative (Negative); Protein, Urine (Dipstick) 100 mg/dL (Neg-Trace); RBC/HPF None Seen HPF (0-3); Specific Gravity, Urine 1.023 (1.002-1.036); Squamous Epithelial None Seen HPF (0-3); Urobilinogen 0.2 mg/dL (0.2-1.0); Yeast-AUWi Flag 20.3 (0-25.0); pH, Urine 8.5 (5.0-9.0)
[2018-09-09] MEDS: rOPINIRole HCl 0.5 MG TAB PO SCH (20:47)
[2018-09-09] MEDS: traZODone HCl 50 MG TAB PO SCH (20:49)
[2018-09-09] MEDS ORDERED: Lidocaine Patch Removal 1 EACH TOP PRN (21:00)
[2018-09-10] MEDS: oxyCODONE/Acetaminophen 5 mg/325 mg Tablet PO SCH ×6 (02:12→19:49)
[2018-09-10] MEDS: oxyCODONE ER 20 MG TAB PO PRN (02:34)
[2018-09-10] MEDS: Levothyroxine Sodium 88 MCG TAB PO SCH (05:22)
--- NOTE | 2018-09-10 07:17 | PDOC.EVN ---
Addendum - Attending - Attending Attestation Date/Time: 09/10/18 0714 I personally evaluated the patient and discussed the management with Dr. Gillespie. I agree with the History, Examination, Assessment and Plan documented in her progress note with any addition or exceptions noted below. Patient here with sepsis (resolved) 2/2 UTI. She is growing Enterococcus and Pseudomonas. Patient was symptomatic but reports that her pain is improved currently. She denies diarrhea and her abdominal pain is improved. Continue IV abx as we have sensitivities from 09/07. Consider discussion with ID about length of therapy needed as patient likely has chronic colonization though this seems to be true infection. HD today.
[2018-09-10 08:04] LABS: #Eosinphils 0.2 thou/uL (0.0-0.7); #Lymphocytes 1.1 thou/uL (1.20-3.40); #Monocytes 0.3 thou/uL (0.11-0.59); %Basophils 0.2 % (0.0-1.0); %Eosinophils 3.3 % (0.0-10.0); %Lymphocytes 16.6 % (21.0-51.0); %Neutrophils 74.9 % (42.0-75.0); Hemoglobin 10.2 g/dL (12.0-16.0); Mean Corpuscular HGB CONC 31.7 g/dL (32.0-36.0); Mean Corpuscular Hemoglobin 31.3 pg (27.0-31.0); Mean Corpuscular Volume 98.5 fL (78.0-98.0); Mean Platelet Volume 8.5 fL (7.4-10.4); Platelet Count 131 thou/uL (130-400); RBC Distribution Width 13.8 % (11.5-14.5); Red Blood Cell (RBC) Count 3.27 mill/uL (4.20-5.40); White Blood Cell (WBC) Count 6.6 thou/uL (4.8-10.8)
[2018-09-10 08:13] LABS: Vancomycin, Random 16.2 ug/mL (See Comment)
[2018-09-10 08:14] LABS: Anion Gap 19 mmol/L (10-20); BUN (Urea Nitrogen) 86 mg/dL (9.8-20.1); Calc. Creatinine Clearance 13 mL/min (70-130); Calcium 8.3 mg/dL (7.8-10.44); Carbon Dioxide 20 mmol/L (23-31); Chloride 103 mmol/L (98-107); Estimated GFR-MDRD 10; Glucose 68 mg/dL (83-110); Potassium 4.8 mmol/L (3.5-5.1); Sodium 137 mmol/L (136-145)
--- NOTE | 2018-09-10 08:44 | PDOC.FM ---
- Subjective Subjective: Patient much improved. She denies any fevers, chills, nausea, vomiting, diarrhea this morning. She endorses some dysuria, denies any hematuria. She reports that she makes a small amount of urine, but wears briefs. Denies any flank pain or abdominal pain. - Objective MAR Reviewed: Yes Vital Signs & Weight: Vital Signs (12 hours) Temp Pulse Resp BP BP Pulse Ox 09/10/18 03:52 97.5 F L 73 16 126/60 95 09/10/18 02:30 76 136/64 09/09/18 23:58 98.3 F 72 16 98/51 L 92 L 09/09/18 20:45 98 Weight Weight 74.253 kg I&O: 09/09/18 09/10/18 09/11/18 06:59 06:59 06:59 Intake Total 820 Output Total 100 Balance 720 Result Diagrams: 09/10/18 07:49 09/10/18 07:50 Phys Exam - Physical Examination Constitutional: NAD HEENT: moist MMs, sclera anicteric Respiratory: no wheezing, no rales, no rhonchi, clear to auscultation bilateral Cardiovascular: RRR, no significant murmur, no rub Gastrointestinal: soft, non-tender, no distention, positive bowel sounds Musculoskeletal: edema present (LLE with 2+ edema) Neurological: non-focal, moves all 4 limbs Psychiatric: normal affect, A&O x 3 Skin: normal turgor, cap refill <2 seconds Dx/Plan (1) Sepsis secondary to UTI Code(s): A41.9 - SEPSIS, UNSPECIFIED ORGANISM; N39.0 - URINARY TRACT INFECTION, SITE NOT SPECIFIED Status: Acute (2) UTI (urinary tract infection) Status: Acute (3) ESRD (end stage renal disease) on dialysis Code(s): N18.6 - END STAGE RENAL DISEASE; Z99.2 - DEPENDENCE ON RENAL DIALYSIS Status: Chronic (4) Deep vein thrombosis (DVT) of left lower extremity Code(s): I82.402 - ACUTE EMBOLISM AND THOMBOS UNSP DEEP VEINS OF L LOW EXTREM Status: Chronic Qualifiers: Chronicity: chronic (5) Chronic low back pain Code(s): M54.5 - LOW BACK PAIN; G89.29 - OTHER CHRONIC PAIN Status: Chronic (6) Dyslipidemia Code(s): E78.5 - HYPERLIPIDEMIA, UNSPECIFIED Status: Chronic (7) Folate deficiency Code(s): E53.8 - DEFICIENCY OF OTHER SPECIFIED B GROUP VITAMINS Status: Chronic (8) Hypothyroidism Code(s): E03.9 - HYPOTHYROIDISM, UNSPECIFIED Status: Chronic (9) Weakness generalized Code(s): R53.1 - WEAKNESS Status: Acute (10) Chronic anemia Code(s): D64.9 - ANEMIA, UNSPECIFIED Status: Chronic (11) GERD (gastroesophageal reflux disease) Code(s): K21.9 - GASTRO-ESOPHAGEAL REFLUX DISEASE WITHOUT ESOPHAGITIS Status: Chronic (12) Physical deconditioning Code(s): R53.81 - OTHER MALAISE Status: Chronic - Plan Plan: Sepsis 2/2 UTI Fever 100.9, WBC 11.1, Lactic acid 3.2, procal 1.91 initially. Urine culture drawn 09/07 with Pseudomonas and Enterococcus. Enterococcus resistant to aminoglycosides, fluroquinolones, and tetracycline. Pseudomonas valle-sensitive. Lactic acid improved to 2.2. Blood Cultures - NGTD - Continue Cefepime and Vancomycin - Phenergan and Zofran PRN for nausea, vomiting - Will discuss oral antibiotic choice with Pharmacy due to minimal options with penicillin allergy and resistance. - Will trend procalcitonin - Finalized Blood cultures Diarrhea, resolved - Stool studies pending LLE DVT recently diagnosed, no signs of PE. - Continue Coumadin - Trend PT/INR Foot ulcers Patient with known h/o PVD and LLE DVT - Wound care has been consulted, continue to monitor ESRD on HD Patient receives dialysis MWF. No signs of fluid overload on exam - Dr. Reno with nephrology has been consulted, appreciate recs - Continue MWF dialysis Chronic Normocytic Anemia, multifactorial Renal failure, Folate def are contributors. Patient also on B12 and Iron treatment, no documentation of deficiency of these in hospital records, but may have had outpatient labs done confirming this. Hb stable. - Continue procrit, B12, iron, and folic acid - Continue to monitor Generalized weakness and deconditioning - PT/OT HLD - Continue home Zetia Hypothyroidism - Continue home Synthroid GERD - Continue protonix Chronic Back Pain - Continue home oxycodone Code Status: DNR DVT ppx: Coumadin Dispo: anticipate d/c to NH once po abx regimen and downtrending procal with improved symptoms.
[2018-09-10] MEDS: Folic Acid 1 MG TAB PO SCH (09:11)
[2018-09-10] MEDS: Ferrous Sulfate 325 MG TAB PO SCH (09:11)
[2018-09-10] MEDS: Sevelamer Carbonate 800 MG TAB PO SCH ×3 (09:11→17:22)
[2018-09-10 09:12] LABS: INR-International Normal Ratio 2.1; Prothrombin Time 23.7 SEC (12.0-14.7)
[2018-09-10] MEDS: Cyanocobalamin (Vitamin B-12) 1,000 MCG TAB PO SCH (09:12)
[2018-09-10] MEDS: DULoxetine 60 MG CAP PO SCH (09:12)
[2018-09-10] MEDS: Dexamethasone 4 MG TAB PO SCH (09:12)
[2018-09-10] MEDS: Ezetimibe 10 MG TAB PO SCH (09:13)
[2018-09-10 09:21] LABS: Lactic Acid 1.6 mmol/L (0.5-2.2)
--- NOTE | 2018-09-10 09:57 | PRG ---
DATE OF SERVICE: SUBJECTIVE: Ms. Pemberton is a 77-year-old white female with ESRD and followed by the [facility] for her maintenance hemodialysis. She was admitted for UTI. She is currently on IV antibiotics. This morning, she is feeling better. Denies any chest pain or shortness of breath. OBJECTIVE: VITAL SIGNS: Blood pressure is 126/60, heart rate 73, respiratory rate 16, pulse ox 95%, temperature 97.5. GENERAL: Awake, supine, comfortable, not in overt distress. SKIN: Adequate turgor. HEENT: Slightly pale conjunctivae. Anicteric sclerae. NECK: No neck mass. No carotid bruits. No JVD. CHEST: No deformities. LUNGS: Clear breath sounds. No wheezing. No crackles. HEART: Normal sinus rhythm. No murmurs. No gallops. No rubs. ABDOMEN: Globular, soft, nontender. No masses. EXTREMITIES: No edema. No deformities. MEDICATIONS: Medications of September 10, 2018, was reviewed. LABORATORY DATA: Laboratories of September 10, 2018; white count 6.6, hemoglobin 10.2. Sodium 137, potassium 4.8, chloride 103, carbon dioxide 20, BUN 86, creatinine 4.26, glucose 68, calcium 8.3. Procalcitonin 1.91. ASSESSMENT AND PLAN: 1. Urinary tract infection, currently on IV antibiotics. Of interest, I did review the urine C and S and she has been reported to grow gram negative rods. 2. End-stage renal disease, stable. We will continue current hemodialysis regimen. Fluid removal only as tolerated. 3. Anemia. Restart back Epogen 7500 units subcu every week. Job ID: [id number]
[2018-09-10] MEDS ORDERED: EPOETIN ALFA-EPBX (ESRD) 4,000 UNIT/ML VIAL SC SCH (11:00)
[2018-09-10] MEDS ORDERED: Heparin 10,000 UNITS/ 10 ML VIAL ONE (15:00)
[2018-09-10] MEDS: Cefepime 0.5 GM in Sodium Chloride 0.9% 100 ML IVPB SCH (17:22)
[2018-09-10] MEDS: Warfarin Sodium 3 MG TAB PO SCH (17:23)
[2018-09-10] MEDS: rOPINIRole HCl 0.5 MG TAB PO SCH (19:49)
[2018-09-10] MEDS: traZODone HCl 50 MG TAB PO SCH (19:49)
[2018-09-11] MEDS: oxyCODONE/Acetaminophen 5 mg/325 mg Tablet PO SCH ×6 (00:54→20:18)
[2018-09-11] MEDS: Levothyroxine Sodium 88 MCG TAB PO SCH (05:11)
--- NOTE | 2018-09-11 06:11 | PDOC.FM ---
- Subjective Subjective: Patient reports some dysuria, but also pain in her rectal region. She reports a history of rectal prolapse. She denies any further vomiting or diarrhea. She is tolerating PO. She denies any problems after dialysis. No chest pain or SOB. - Objective MAR Reviewed: Yes Vital Signs & Weight: Vital Signs (12 hours) Temp Pulse Resp BP Pulse Ox 09/10/18 19:18 98.2 F 79 16 99/55 L 92 L Weight Admit Weight 74.253 kg Weight 72 kg I&O: 09/09/18 09/10/18 09/11/18 06:59 06:59 06:59 Intake Total 820 1270 Output Total 100 Balance 720 1270 Result Diagrams: 09/10/18 07:49 09/10/18 07:50 Phys Exam - Physical Examination Constitutional: NAD HEENT: moist MMs, sclera anicteric Respiratory: no wheezing, no rales, no rhonchi, clear to auscultation bilateral Cardiovascular: RRR, no significant murmur, no rub Gastrointestinal: soft, non-tender, no distention, positive bowel sounds Musculoskeletal: no edema, pulses present Neurological: non-focal, moves all 4 limbs Psychiatric: normal affect, A&O x 3 Skin: normal turgor, cap refill <2 seconds Dx/Plan (1) Sepsis secondary to UTI Code(s): A41.9 - SEPSIS, UNSPECIFIED ORGANISM; N39.0 - URINARY TRACT INFECTION, SITE NOT SPECIFIED Status: Resolved (2) UTI (urinary tract infection) Status: Acute (3) ESRD (end stage renal disease) on dialysis Code(s): N18.6 - END STAGE RENAL DISEASE; Z99.2 - DEPENDENCE ON RENAL DIALYSIS Status: Chronic (4) Deep vein thrombosis (DVT) of left lower extremity Code(s): I82.402 - ACUTE EMBOLISM AND THOMBOS UNSP DEEP VEINS OF L LOW EXTREM Status: Chronic Qualifiers: Chronicity: chronic (5) Chronic low back pain Code(s): M54.5 - LOW BACK PAIN; G89.29 - OTHER CHRONIC PAIN Status: Chronic (6) Dyslipidemia Code(s): E78.5 - HYPERLIPIDEMIA, UNSPECIFIED Status: Chronic (7) Folate deficiency Code(s): E53.8 - DEFICIENCY OF OTHER SPECIFIED B GROUP VITAMINS Status: Chronic (8) Hypothyroidism Code(s): E03.9 - HYPOTHYROIDISM, UNSPECIFIED Status: Chronic (9) Weakness generalized Code(s): R53.1 - WEAKNESS Status: Acute (10) Chronic anemia Code(s): D64.9 - ANEMIA, UNSPECIFIED Status: Chronic (11) GERD (gastroesophageal reflux disease) Code(s): K21.9 - GASTRO-ESOPHAGEAL REFLUX DISEASE WITHOUT ESOPHAGITIS Status: Chronic (12) Physical deconditioning Code(s): R53.81 - OTHER MALAISE Status: Chronic - Plan Plan: Sepsis 2/2 UTI Fever 100.9, WBC 11.1, Lactic acid 3.2, procal 1.91 initially. Urine culture drawn 09/07 with Pseudomonas and Enterococcus. Enterococcus resistant to aminoglycosides, fluroquinolones, and tetracycline. Pseudomonas valle-sensitive. Lactic acid improved to 2.2. Blood Cultures - NGTD - Continue Cefepime and Vancomycin - Phenergan and Zofran PRN for nausea, vomiting - Will trend procalcitonin, labs pending from this AM. - Finalized Blood cultures - There are limited options regarding de-escalating abx due to MDR enterococcus. Plan to likely continue vanc with dialysis and possibly levaquin to cover pseudomonas. Diarrhea, resolved - Stool studies pending LLE DVT recently diagnosed, no signs of PE. - Continue Coumadin - Trend PT/INR, pending from this AM. Foot ulcers Patient with known h/o PVD and LLE DVT - Wound care has been consulted, continue to monitor ESRD on HD Patient receives dialysis MWF. No signs of fluid overload on exam - Dr. Reno with nephrology has been consulted, appreciate recs - Continue MWF dialysis - 2L removed during dialysis yesterday Chronic Normocytic Anemia, multifactorial Renal failure, Folate def are contributors. Patient also on B12 and Iron treatment, no documentation of deficiency of these in hospital records, but may have had outpatient labs done confirming this. Hb stable. - Continue procrit, B12, iron, and folic acid - Continue to monitor Generalized weakness and deconditioning - PT/OT HLD - Continue home Zetia Hypothyroidism - Continue home Synthroid GERD - Continue protonix Chronic Back Pain - Continue home oxycodone Code Status: DNR DVT ppx: Coumadin Dispo: anticipate d/c to NH in the next few days with vanc after dialysis sessions. Addendum - Attending - Attending Attestation Date/Time: 09/11/18 0806 I personally evaluated the patient and discussed the management with Dr. Gillespie. I agree with the History, Examination, Assessment and Plan documented above with any addition or exceptions noted below. Patient reports feeling ok this morning. Continue IV abx for her MDR UTI. Await final cultures and ensure her blood counts are improving. Likely nearing stable for discharge in next coming days, will need outpatient therapy and likely Vanc with HD sessions.
[2018-09-11] MEDS: Ferrous Sulfate 325 MG TAB PO SCH (08:52)
[2018-09-11] MEDS: Sevelamer Carbonate 800 MG TAB PO SCH ×3 (08:53→16:55)
[2018-09-11] MEDS: DULoxetine 60 MG CAP PO SCH (08:53)
[2018-09-11] MEDS: Dexamethasone 4 MG TAB PO SCH (08:53)
[2018-09-11] MEDS: Cyanocobalamin (Vitamin B-12) 1,000 MCG TAB PO SCH (08:53)
[2018-09-11] MEDS: Ezetimibe 10 MG TAB PO SCH (08:54)
[2018-09-11] MEDS: Folic Acid 1 MG TAB PO SCH (08:54)
[2018-09-11 09:12] LABS: #Eosinphils 0.1 thou/uL (0.0-0.7); #Lymphocytes 1.5 thou/uL (1.20-3.40); #Monocytes 0.5 thou/uL (0.11-0.59); #Neutrophils 3.4 thou/uL (1.40-6.50); %Basophils 0.8 % (0.0-1.0); %Eosinophils 1.4 % (0.0-10.0); %Lymphocytes 27.8 % (21.0-51.0); %Monocytes 8.2 % (0.0-10.0); %Neutrophils 61.7 % (42.0-75.0); Hemoglobin 10.9 g/dL (12.0-16.0); Mean Corpuscular HGB CONC 32.1 g/dL (32.0-36.0); Mean Corpuscular Volume 99.7 fL (78.0-98.0); Mean Platelet Volume 8.3 fL (7.4-10.4); Platelet Count 141 thou/uL (130-400); RBC Distribution Width 13.7 % (11.5-14.5); Red Blood Cell (RBC) Count 3.41 mill/uL (4.20-5.40); White Blood Cell (WBC) Count 5.5 thou/uL (4.8-10.8)
[2018-09-11 09:18] LABS: INR-International Normal Ratio 2.2; Prothrombin Time 24.6 SEC (12.0-14.7)
[2018-09-11 09:22] LABS: Anion Gap 13 mmol/L (10-20); BUN (Urea Nitrogen) 36 mg/dL (9.8-20.1); Calc. Creatinine Clearance 17 mL/min (70-130); Calcium 8.3 mg/dL (7.8-10.44); Carbon Dioxide 26 mmol/L (23-31); Chloride 103 mmol/L (98-107); Estimated GFR-MDRD 15; Glucose 79 mg/dL (83-110); Potassium 3.8 mmol/L (3.5-5.1); Sodium 138 mmol/L (136-145)
--- NOTE | 2018-09-11 09:59 | PRG ---
DATE OF SERVICE: 09/11/2018 SUBJECTIVE: Ms. Pemberton is a 77-year-old white female with ESRD followed up by the [facility] for maintenance hemodialysis. She underwent dialysis yesterday. We had to shorten treatment because the patient requested to shorten her treatment. This morning no new complaints. No chest pain or shortness of breath. She was initially admitted for UTI and currently on IV antibiotics. OBJECTIVE: VITAL SIGNS: Blood pressure is noted at 110/55, heart rate 69, respiratory rate 16, temperature 98, and pulse ox 91% on room air. GENERAL: Awake, alert, and comfortable, not in distress. SKIN: Adequate turgor. HEENT: Pinkish conjunctivae. Anicteric sclerae. NECK: No neck mass. No carotid bruits. No JVD. CHEST: No deformities. LUNGS: Clear breath sounds. No wheezing. No crackles. HEART: Normal sinus rhythm. No murmur. No gallops. No rubs. ABDOMEN: Globular, soft, and nontender. No masses. EXTREMITIES: No edema. MEDICATIONS: Medications of September 11, 2018, was reviewed. LABORATORY DATA: Laboratories of September 10, 2018; white count 6.6 and hemoglobin 10.2. Sodium 137, potassium 4.8, chloride 103, carbon dioxide 20, BUN 86, creatinine 4.26, glucose 68, calcium 8.3, and Procalcitonin 1.91. ASSESSMENT AND PLAN: 1. Urinary tract infection, on empiric IV antibiotics. 2. End-stage renal disease, stable, tolerating current hemodialysis regimen. The patient had a short run treatment yesterday, but otherwise she seems to be adequately dialyzed. Her electrolytes are within normal. In addition, she is not volume overload. Overall, agree with current management. We will continue Monday, Monday, and Monday dialysis. Job ID: [id number]
[2018-09-11] MEDS: Cefepime 0.5 GM in Sodium Chloride 0.9% 100 ML IVPB SCH (16:54)
[2018-09-11] MEDS: Warfarin Sodium 3 MG TAB PO SCH (16:56)
[2018-09-11] MEDS ORDERED: hydrOXYzine 25 MG TAB PO SCH (17:15)
[2018-09-11] MEDS: rOPINIRole HCl 0.5 MG TAB PO SCH (20:18)
[2018-09-11] MEDS: traZODone HCl 50 MG TAB PO SCH (20:18)
[2018-09-12] MEDS: oxyCODONE/Acetaminophen 5 mg/325 mg Tablet PO SCH ×5 (01:11→17:19)
[2018-09-12 04:28] LABS: Platelet Count 152 thou/uL (130-400)
[2018-09-12 04:43] LABS: Anion Gap 12 mmol/L (10-20); BUN (Urea Nitrogen) 49 mg/dL (9.8-20.1); Calc. Creatinine Clearance 14 mL/min (70-130); Calcium 8.3 mg/dL (7.8-10.44); Carbon Dioxide 26 mmol/L (23-31); Chloride 105 mmol/L (98-107); Estimated GFR-MDRD 12; Glucose 99 mg/dL (83-110); Potassium 3.9 mmol/L (3.5-5.1); Sodium 139 mmol/L (136-145)
[2018-09-12 04:51] LABS: INR-International Normal Ratio 2.2; Prothrombin Time 24.8 SEC (12.0-14.7)
[2018-09-12] MEDS: Levothyroxine Sodium 88 MCG TAB PO SCH (05:02)
--- NOTE | 2018-09-12 07:27 | PDOC.EVN ---
Addendum - Attending - Attending Attestation Date/Time: 09/12/18 8720 I personally evaluated the patient and discussed the management with Dr. Gillespie. I agree with the History, Examination, Assessment and Plan documented in her progress note with any addition or exceptions noted below. Patient overall doing well. Cultures and sensitivity resulted, will work to get her on abx regimen that she can take outpatient and consider discharge once these issues are worked out.
--- NOTE | 2018-09-12 08:42 | PDOC.FM ---
- Subjective Subjective: Patient doing well this AM. Complaining of her chronic pain. Reports some continued dysuria, but denies hematuria, suprapubic pain, flank pain, fevers. She denies any swelling or SOB, N/V, diarrhea. - Objective MAR Reviewed: Yes Vital Signs & Weight: Weight Admit Weight 74.253 kg Weight 71.6 kg I&O: 09/11/18 09/12/18 09/13/18 06:59 06:59 06:59 Intake Total 1270 1270 Balance 1270 1270 Result Diagrams: 09/12/18 03:58 09/12/18 03:58 Phys Exam - Physical Examination Constitutional: NAD HEENT: moist MMs, sclera anicteric Respiratory: no wheezing, no rales, no rhonchi, clear to auscultation bilateral Cardiovascular: RRR, no significant murmur, no rub Gastrointestinal: soft, non-tender, no distention, positive bowel sounds Musculoskeletal: no edema, pulses present Neurological: non-focal, moves all 4 limbs Psychiatric: normal affect, A&O x 3 Skin: normal turgor, cap refill <2 seconds Dx/Plan (1) Sepsis secondary to UTI Code(s): A41.9 - SEPSIS, UNSPECIFIED ORGANISM; N39.0 - URINARY TRACT INFECTION, SITE NOT SPECIFIED Status: Resolved (2) UTI (urinary tract infection) Status: Acute (3) ESRD (end stage renal disease) on dialysis Code(s): N18.6 - END STAGE RENAL DISEASE; Z99.2 - DEPENDENCE ON RENAL DIALYSIS Status: Chronic (4) Deep vein thrombosis (DVT) of left lower extremity Code(s): I82.402 - ACUTE EMBOLISM AND THOMBOS UNSP DEEP VEINS OF L LOW EXTREM Status: Chronic Qualifiers: Chronicity: chronic (5) Chronic low back pain Code(s): M54.5 - LOW BACK PAIN; G89.29 - OTHER CHRONIC PAIN Status: Chronic (6) Dyslipidemia Code(s): E78.5 - HYPERLIPIDEMIA, UNSPECIFIED Status: Chronic (7) Folate deficiency Code(s): E53.8 - DEFICIENCY OF OTHER SPECIFIED B GROUP VITAMINS Status: Chronic (8) Hypothyroidism Code(s): E03.9 - HYPOTHYROIDISM, UNSPECIFIED Status: Chronic (9) Weakness generalized Code(s): R53.1 - WEAKNESS Status: Acute (10) Chronic anemia Code(s): D64.9 - ANEMIA, UNSPECIFIED Status: Chronic (11) GERD (gastroesophageal reflux disease) Code(s): K21.9 - GASTRO-ESOPHAGEAL REFLUX DISEASE WITHOUT ESOPHAGITIS Status: Chronic (12) Physical deconditioning Code(s): R53.81 - OTHER MALAISE Status: Chronic - Plan Plan: Sepsis 2/2 UTI Fever 100.9, WBC 11.1, Lactic acid 3.2, procal 1.91 initially. Urine culture drawn 09/07 with Pseudomonas and Enterococcus. Enterococcus resistant to aminoglycosides, fluroquinolones, and tetracycline. Pseudomonas valle-sensitive. Lactic acid improved to 2.2. Blood Cultures - NGTD - Continue Cefepime and Vancomycin, will d/c home today with levaquin for pseudomonas and vanc after dialysis for enterococcus. - Procalcitonin has been downtrending LLE DVT recently diagnosed, no signs of PE. - Continue Coumadin - Trend PT/INR, therapeutic at this time Foot ulcers Patient with known h/o PVD and LLE DVT - Wound care has been consulted ESRD on HD Patient receives dialysis MWF. No signs of fluid overload on exam - Dr. Reno with nephrology has been consulted, appreciate recs - Continue MWF dialysis Chronic Normocytic Anemia, multifactorial Renal failure, Folate def are contributors. Patient also on B12 and Iron treatment, no documentation of deficiency of these in hospital records, but may have had outpatient labs done confirming this. Hb stable. - Continue procrit, B12, iron, and folic acid - Continue to monitor Generalized weakness and deconditioning - PT/OT HLD - Continue home Zetia Hypothyroidism - Continue home Synthroid GERD - Continue protonix Chronic Back Pain - Continue home oxycodone Code Status: DNR DVT ppx: Coumadin Dispo: d/c to NH today with vanc to be given after dialysis and levaquin to be given at [place]. Discussed this with Dr. Reno and he will set up the vancomycin for 14 total days of treatment
[2018-09-12] MEDS: DULoxetine 60 MG CAP PO SCH (08:45)
[2018-09-12] MEDS: Sevelamer Carbonate 800 MG TAB PO SCH ×3 (08:45→17:18)
[2018-09-12] MEDS: Ezetimibe 10 MG TAB PO SCH (08:45)
[2018-09-12] MEDS: Folic Acid 1 MG TAB PO SCH (08:45)
[2018-09-12] MEDS: Cyanocobalamin (Vitamin B-12) 1,000 MCG TAB PO SCH (08:45)
[2018-09-12] MEDS: Ferrous Sulfate 325 MG TAB PO SCH (08:46)
[2018-09-12] MEDS: Dexamethasone 4 MG TAB PO SCH (08:46)
[2018-09-12 09:15] LABS: Vancomycin, Random 14.6 ug/mL (See Comment)
[2018-09-12 09:57] VITALS: TEMP 97.7
--- NOTE | 2018-09-12 10:14 | PRG ---
DATE OF SERVICE: 09/12/2018 SUBJECTIVE: Ms. Pemberton is a 77-year-old white female, who is followed by the [facility] for maintenance hemodialysis. She is scheduled for dialysis this morning. The plan is to do a 3-hour dialysis if the patient will stay. Fluid removal will only be done as tolerated. She was initially admitted for UTI. She is on empiric IV antibiotics. Case discussed with house staff regarding outpatient vancomycin. She will receive IV vancomycin in the dialysis unit for a total of 2 weeks. I have instructed the dialysis nurses to go about this order. No other complaints today. OBJECTIVE: VITAL SIGNS: Blood pressure 108/59, heart rate 76, respiratory rate 16, temperature 98.2, and pulse ox 93%. GENERAL: Awake, alert, comfortable, not in distress. SKIN: Adequate turgor. HEENT: She has pinkish conjunctivae. Anicteric sclerae. NECK: No neck mass. No carotid bruits. No JVD. CHEST: No deformities. LUNGS: Clear breath sounds. HEART: Normal sinus rhythm. No murmur. No gallops. No rubs. ABDOMEN: Globular, soft, nontender. No masses. EXTREMITIES: No edema. No deformities. BACK: Positive for kyphosis. MEDICATIONS: Medications of September 12, 2018, reviewed. LABORATORY DATA: Laboratories of September 12, 2018: Hemoglobin is 10. Sodium 139, potassium 3.9, chloride 105, carbon dioxide 26, BUN 49, creatinine 3.73, glucose 99, calcium 8.3. Procalcitonin 1.24. ASSESSMENT AND PLAN: 1. Urinary tract infection, on empiric IV antibiotics. We will plan for outpatient IV vancomycin for a total of 10 to 14 days. 2. End-stage renal disease, stable. We will continue current Monday, Monday, and Monday dialysis. Again, fluid removal as tolerated. 3. Anemia, on weekly Epogen. Agree with current management and plan discharge. Job ID: [id number]
[2018-09-12 10:56] VITALS: BMI 23.3
[2018-09-12] MEDS ORDERED: Heparin 10,000 UNITS/ 10 ML VIAL ONE (11:11)
[2018-09-12] MEDS: oxyCODONE ER 20 MG TAB PO PRN (16:05)
[2018-09-12] MEDS: Warfarin Sodium 3 MG TAB PO SCH (17:18)
[2018-09-12 17:21] VITALS: BP 105/54
[2018-09-12] MEDS: Cefepime 0.5 GM in Sodium Chloride 0.9% 100 ML IVPB SCH (17:49)
--- NOTE | 2018-09-14 04:04 | DIS ---
DATE OF ADMISSION: 09/09/2018 DATE OF DISCHARGE: 09/12/2018 ADMITTING ATTENDING: Christian Mariscal MD. DISCHARGE ATTENDING: Hieu Liao MD. ADMITTING RESIDENT: Charito Shaffer MD. DISCHARGE RESIDENT: Shonda Gillespie MD. CONSULT: Dr. Reno with Nephrology. PROCEDURES: Dialysis on Monday and on Monday of admission. PRIMARY DIAGNOSES: 1. Sepsis. 2. Urinary tract infection. 3. Left foot ulcers. SECONDARY DIAGNOSES: 1. Left lower extremity deep vein thrombosis, recently diagnosed. 2. End-stage renal disease, on hemodialysis. 3. Chronic normocytic anemia. 4. Generalized weakness. 5. Hyperlipidemia. 6. Hypothyroidism. 7. Gastroesophageal reflux disease. 8. Chronic back pain. DISCHARGE MEDICATIONS: 1. Levofloxacin 500 mg p.o. q.48 hours for 10 days. 2. Vancomycin 1 g IV piggyback after dialysis for 10 days. 3. Warfarin 3 mg p.o. at 1800 hours. 4. Trazodone 50 mg p.o. at bedtime. 5. Renvela 800 mg p.o. t.i.d. 6. Ropinirole 0.5 mg p.o. at bedtime. 7. OxyContin 40 mg p.o. q.12 hours p.r.n. severe pain. 8. Percocet 10/325 one tab p.o. q.4 hours. 9. Omeprazole 40 mg p.o. daily. 10. Lidocaine 1 patch topical daily p.r.n. pain. 11. Folic acid 1 mg p.o. daily. 12. Ferrous sulfate 325 mg p.o. q.a.m. 13. Zetia 10 mg p.o. daily. 14. Duloxetine 60 mg p.o. q.a.m. 15. Dexamethasone 2 mg p.o. q.a.m. 16. Vitamin B12 1000 mcg p.o. daily. 17. Acetaminophen 650 mg p.o. b.i.d. p.r.n. pain. DISCONTINUED MEDICATIONS: None. HISTORY OF PRESENT ILLNESS/HOSPITAL COURSE: This is a 77-year-old female with past medical history of end-stage renal disease, on hemodialysis, and recent left lower extremity DVT diagnosis, who presented with sepsis secondary to UTI. The patient was found to have a multidrug resistant UTI including susceptible Pseudomonas and enterococcus resistant to aminoglycosides, fluoroquinolones, and tetracycline. The patient does have penicillin allergy. The patient was treated with vancomycin and cefepime and clinically improved. She did have initial elevation of her procalcitonin to 1.91. This improved throughout her admission to 1.24. The patient also had an initial elevated white count of 11.1, this improved as well. The patient had a therapeutic INR of 2.1 to 2.2. The patient continued hemodialysis while admitted. The patient was able to be discharged with vancomycin to be given after dialysis through the next 10 days and Levaquin to treat this Pseudomonas to be given every 48 hours. DISPOSITION: Stable. DISCHARGE INSTRUCTIONS: 1. Location: [facility]. 2. Diet: Renal, high-protein with fluid restriction. 3. Activity: As tolerated. 4. Follow up with Dr. Reno for dialysis, with Dr. Fitch within 1-3 days. Job ID: [id number]
== END 2018-09-12 19:10 | DRG 871 ==
LOC: ERS 02:16 → ONC 05:08
PROVIDERS: ADMIT Family Medicine; ATTEND Family Medicine
PROC: 5A1D70Z Performance of Urinary Filtration, Intermittent, Less than 6 Hours Per Day (ICD-10-PCS; principal; 2018-09-10)
DX: A41.52 Sepsis due to Pseudomonas (principal); N18.6 End stage renal disease; I12.0 Hypertensive chronic kidney disease with stage 5 chronic kidney disease or end stage renal disease; N39.0 Urinary tract infection, site not specified; I82.509 Chronic embolism and thrombosis of unspecified deep veins of unspecified lower extremity; Z66 Do not resuscitate; A41.81 Sepsis due to Enterococcus; E78.5 Hyperlipidemia, unspecified; D50.9 Iron deficiency anemia, unspecified; E03.9 Hypothyroidism, unspecified; M19.90 Unspecified osteoarthritis, unspecified site; E53.8 Deficiency of other specified B group vitamins; K21.9 Gastro-esophageal reflux disease without esophagitis; K22.8 Other specified diseases of esophagus; D63.1 Anemia in chronic kidney disease; K27.9 Peptic ulcer, site unspecified, unspecified as acute or chronic, without hemorrhage or perforation; Z90.49 Acquired absence of other specified parts of digestive tract; Z87.891 Personal history of nicotine dependence; Z88.0 Allergy status to penicillin; Z79.01 Long term (current) use of anticoagulants; Z79.899 Other long term (current) drug therapy; Z99.2 Dependence on renal dialysis
CPT/HCPCS: 36415; 71045; 74177; 80048; 80053; 80202; 81001; 83605; 83690; 83735; 84100; 84145; 85014; 85018; 85025; 85049; 85610; 87040; 87077; 87086; 87186; 93005; 96365; 96367; 96375; J0692; J1644; J2405; J2550; J3370; J3490; J7050; J8540; Q0162; Q5105; Q9967

== ENCOUNTER 2018-11-05 07:55 | Emergency (ER) | payer MEDICARE ==
[2018-11-05] MEDS ORDERED: HYDROcodone/Acetaminophen 10/325 mg Tablet ONE (08:39)
--- NOTE | 2018-11-05 10:20 | RAD ---
3 views left foot: 11/05/2018 COMPARISON: 01/13/2017 HISTORY: Swelling, trauma, pain FINDINGS: The bones are demineralized. No displaced fracture or evidence of dislocation is seen. Stab le calcaneal enthesophyte formation. There is stable degenerative change involving the subtalar joint and the first interphalangeal joint. Probable old fracture noted at the base of the fourth meta tarsal head, stable. IMPRESSION: Chronic findings as detailed above. No acute fracture or dislocation is seen. If symptoms persist, MRI suggested if there is clinical concern for a radio-occult fracture.
--- NOTE | 2018-11-05 10:34 | RAD ---
LEFT LEG 2 VIEWS: HISTORY: Injury, swelling and pain in the left lower extremity. FINDINGS/IMPRESSION: The distal tibia is suboptimally visualized medially. The visualized portions of the bones are other beatty intact. Dedicated left ankle radiographs are recommended. POS: OFF
--- NOTE | 2018-11-05 10:51 | ULT ---
BILATERAL LOWER EXTREMITY VENOUS VASCULAR DUPLEX INCLUDING COLOR AND SPECTRAL DOPPLER IMAGING: HISTORY: Bilateral leg swelling and edema, history of prior left lower extremity positive for DVT study on 07/23. COMPARISON: 08/02/2018. FINDINGS: The patient was examined from groin to ankle including visualized greater saphenous, common femoral, superficial femoral, profunda femoral, popliteal, trifurcation, and posterior tibial vein regions. On the right side because of patient's positioning, the distal superficial femoral vein, posterior ti bial vein, and saphenous veins were not definitely visualized because of the extensive position . On the left side there is intraluminal thrombus involving the distal superficial femoral vein with so me flow seen. On the 08/02 study there was thrombus in the common femoral vein and profunda femoral v ein which is no longer evident on this study. There is a complex solid and cystic irregular-shaped mass in the posterior right calf. Etiology is u ncertain, although this could represent an extremely complicated complex popliteal fossa cyst. Given the history of trauma to this region, this could represent a hematoma. If this area worsens or does not resolve, consideration for followup MRI with and without contrast on an emergency basis. IMPRESSION: 1. Incomplete visualization of the right upper extremity as above, but no evidence for visible deep venous thrombosis. 2. left lower extremity distal superficial femoral intraluminal thrombus without complete obstructio n showing some improvement from the prior 08/02/2018 study. 3. Irregular 1.9 x 4.0 x 4.4 cm collection in the posterior right calf, possibly a hematoma versus a very complex or complicated popliteal fossa cyst. POS: [facility]
[2018-11-05 10:58] LABS: #Eosinphils 0.1 thou/uL (0.0-0.7); #Lymphocytes 1.2 thou/uL (1.20-3.40); #Monocytes 0.5 thou/uL (0.11-0.59); #Neutrophils 6.3 thou/uL (1.40-6.50); %Basophils 0.5 % (0.0-1.0); %Eosinophils 0.7 % (0.0-10.0); %Lymphocytes 14.9 % (21.0-51.0); %Monocytes 5.6 % (0.0-10.0); %Neutrophils 78.4 % (42.0-75.0); Hemoglobin 9.8 g/dL (12.0-16.0); Mean Corpuscular HGB CONC 31.2 g/dL (32.0-36.0); Mean Corpuscular Hemoglobin 32.9 pg (27.0-31.0); Mean Platelet Volume 8.5 fL (7.4-10.4); Platelet Count 190 thou/uL (130-400); RBC Distribution Width 14.6 % (11.5-14.5); Red Blood Cell (RBC) Count 2.97 mill/uL (4.20-5.40)
[2018-11-05 11:20] LABS: ALT (SGPT) 10 U/L (8-55); AST (SGOT) 14 U/L (5-34); Albumin 3.1 g/dL (3.4-4.8); Alkaline Phosphatase 80 U/L (40-150); Anion Gap 13 mmol/L (10-20); BUN (Urea Nitrogen) 43 mg/dL (9.8-20.1); Bilirubin, Total 0.4 mg/dL (0.2-1.2); Calc. Creatinine Clearance 0 mL/min (70-130); Carbon Dioxide 28 mmol/L (23-31); Chloride 100 mmol/L (98-107); Estimated GFR-MDRD 11; Globulin 2.2 g/dL (2.4-3.5); Glucose 99 mg/dL (83-110); Protein, Total 5.3 g/dL (6.0-8.3); Sodium 137 mmol/L (136-145)
== END 2018-11-05 11:28 | disposition home or self-care (01) ==
LOC: ERS 07:55
DX: S80.12XA Contusion of left lower leg, initial encounter (principal); I82.402 Acute embolism and thrombosis of unspecified deep veins of left lower extremity; F41.9 Anxiety disorder, unspecified; F32.9 Major depressive disorder, single episode, unspecified; Z87.891 Personal history of nicotine dependence; W22.8XXA Striking against or struck by other objects, initial encounter
CPT/HCPCS: 36415; 80048; 83605; 85025; 85610; 87040; 87149; 93970

== ENCOUNTER 2018-11-08 16:47 | Inpatient (IN) | payer MEDICARE ==
[2018-11-08 17:33] LABS: #Basophils 0.1 thou/uL (0.0-0.2); #Eosinphils 0.1 thou/uL (0.0-0.7); #Lymphocytes 1.1 thou/uL (1.20-3.40); #Monocytes 1.1 thou/uL (0.11-0.59); #Neutrophils 10.5 thou/uL (1.40-6.50); %Basophils 0.4 % (0.0-1.0); %Eosinophils 0.5 % (0.0-10.0); %Lymphocytes 8.4 % (21.0-51.0); %Monocytes 8.3 % (0.0-10.0); %Neutrophils 82.4 % (42.0-75.0); Hemoglobin 7.3 g/dL (12.0-16.0); Mean Corpuscular HGB CONC 30.8 g/dL (32.0-36.0); Mean Corpuscular Hemoglobin 32.1 pg (27.0-31.0); Platelet Count 345 thou/uL (130-400); RBC Distribution Width 14.4 % (11.5-14.5); Red Blood Cell (RBC) Count 2.27 mill/uL (4.20-5.40); White Blood Cell (WBC) Count 12.7 thou/uL (4.8-10.8)
[2018-11-08] MEDS ORDERED: Fentanyl 100 MCG/2 ML VIAL ONE ×3 (17:36→20:52)
[2018-11-08] MEDS ORDERED: Ondansetron PF 4 MG/2 ML Vial ONE (17:36)
--- NOTE | 2018-11-08 17:38 | RAD ---
EXAM: XR Chest 1 View Portable PROVIDED CLINICAL HISTORY: Edema COMPARISON: 09/09/2018 FINDINGS: Cardiac silhouette remains enlarged. Prominence of the main pulmonary artery again noted. Atheroscler osis. Right IJ dialysis catheter in similar position. Right suprahilar parenchymal opacity. No pleural fluid or pneumothorax apparent. IMPRESSION: Right suprahilar parenchymal opacity. Correlate with concerns for pneumonia. Follow-up recommended.
[2018-11-08 17:41] LABS: INR-International Normal Ratio 3.5; PTT 92.9 SEC (22.9-36.1); Prothrombin Time 34.5 SEC (12.0-14.7)
--- NOTE | 2018-11-08 17:57 | CT ---
CT ABDOMEN AND PELVIS WITHOUT CONTRAST: 11/08/18 HISTORY: Abdominal pain and sepsis. COMPARISON: CT abdomen and pelvis from 09/09/18. FINDINGS: Large sliding hiatal hernia. Moderate atelectatic changes in the lung bases. No significant pericardi al effusion. Kidneys are atrophic. The left adnexal hypodense mass is similar. There is extensive swelling of the anterior left thigh. Extensive fatty atrophy of the hip flexors an d extensors. No dilated loops of large or small bowel. There is unformed stool within the ascending colon suggesti ng diarrhea. No free intraperitoneal gas or fluid. Pancreas is atrophied. The aortic contour is nonaneurysmal. Severe degenerative disease of the right hip. IMPRESSION: 1. Severe left anterior thigh soft tissue swelling suggesting cellulitis. This could also be due to vascular congestive changes from deep venous thrombosis. 2. Unchanged left adnexal mass. Nonemergent follow-up ultrasound in six months recommended. 3. Renal atrophy. 4. Paraspinal as well as hip flexor and extensor muscle atrophy. 5. Similar appearance of large sliding hiatal hernia. 6. No free air or free fluid within the pelvis. 7. Unformed stool within the ascending colon suggesting diarrhea. POS: HOME
[2018-11-08 18:00] LABS: ALT (SGPT) 9 U/L (8-55); AST (SGOT) 16 U/L (5-34); Albumin 2.8 g/dL (3.4-4.8); Alkaline Phosphatase 76 U/L (40-150); Anion Gap 20 mmol/L (10-20); BUN (Urea Nitrogen) 46 mg/dL (9.8-20.1); Bilirubin, Total 0.4 mg/dL (0.2-1.2); Calc. Creatinine Clearance 0 mL/min (70-130); Calcium 7.5 mg/dL (7.8-10.44); Carbon Dioxide 25 mmol/L (23-31); Chloride 95 mmol/L (98-107); Estimated GFR-MDRD 9; Glucose 92 mg/dL (83-110); Lipase 10 U/L (8-78); Potassium 4.1 mmol/L (3.5-5.1); Protein, Total 4.8 g/dL (6.0-8.3); Sodium 136 mmol/L (136-145)
--- NOTE | 2018-11-08 18:27 | ULT ---
EXAM: US Venous Doppler Bilat PROVIDED CLINICAL HISTORY: DVT COMPARISON: 11/05/2018 FINDINGS: Evaluation is extremely limited. Grayscale and color Doppler sonography with spectral analysis was pe rformed of each lower extremity. The right common femoral, greater saphenous, proximal femoral, profunda femoral, distal femoral and mid to distal posterior tibial veins are not visualized. The lef t popliteal vein is not visualized. The visualized venous structures of each lower extremity demonstrate normal compressibility and flow. Large area of complex echogenicity at the medial aspect of the left calf presumably reflects hematoma. IMPRESSION: Limited study without evidence for lower extremity deep venous thrombosis.
[2018-11-08 19:00] LABS: Bilirubin Small (Negative); Blood, Urine Large (Negative); Glucose, Urine (Dipstick) Negative (Negative); Leukocyte Large (Negative); Nitrite Negative (Negative); Protein, Urine (Dipstick) > or equal to 300 mg/dL (Neg-Trace); Urobilinogen 0.2 mg/dL (Less than 2)
[2018-11-08 19:06] LABS: Clarity Turbid (Clear)
[2018-11-08 19:07] LABS: Bacteria/HPF 4+ HPF (None Seen); RBC/HPF 21-50 HPF (0-3); WBC/HPF Greater Than 50 HPF (0-3)
[2018-11-08] MEDS ORDERED: Cefepime 2 GM VIAL ONE (19:09)
--- NOTE | 2018-11-08 20:02 | PDOC.FPRHP ---
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 Her chronic L femoral DVT was diagnosed in July 2018, and patient has been on warfarin since that time. Patient reports last week she hit her R leg on the bed rail at her place of residence ([facility]), sustained bruising, and was given the diagnosis of R hematoma and DVT. She presented to the ED for acute worsening of distal LE leg pain bilaterally. She was diagnosed w/ hematomas and sent home. Her PCP Dr. Lloyd saw her yesterday and stopped her warfarin due to INR of 6. Today, however, the patient again had severe pain in her legs and came to the ED. She also reports abdominal pain which radiates to her back. Denies fever. She does tell me she has not eaten much the past two days due to lack of appetite and nausea. She denies vomiting. Patient is not on oxygen at home. She has required intermittent O2 NC here at 2 L. She does not wish to be resuscitated. ED Course: Patient arrived in ED. She was given IV fluids NS for dehydration, placed on 2L O2 for O2 sat at 92%, and treated w/ antibiotics (cefepime x1). Vancomycin was also ordered and given. Lower extremity U/S, CT abd/pelvis, EKG, and CXR done. - Allergies/Adverse Reactions Allergies Allergy/AdvReac Type Severity Reaction Status Date / Time Penicillins Allergy Verified 11/08/18 23:13 - Home Medications Medication Instructions Recorded Confirmed Type Ezetimibe [Zetia] 10 mg PO DAILY 07/12/15 11/08/18 History Levothyroxine Sodium 88 mcg PO QAM 07/12/15 11/08/18 History Omeprazole 40 mg PO DAILY 07/12/15 11/08/18 History Cyanocobalamin (Vitamin B-12) 1,000 mcg PO DAILY #0 tab 07/20/15 11/08/18 Rx [Vitamin B-12] Ferrous Sulfate [Feosol] 325 mg PO QAM-WM #0 tab 07/20/15 11/08/18 Rx Folic Acid [Folvite] 1 mg PO DAILY #0 tab 07/20/15 11/08/18 Rx traZODone HCl 50 mg PO HS #0 tablet 07/20/15 11/08/18 Rx Ondansetron HCl [Zofran] 4 mg PO Q4HR PRN 11/28/16 11/08/18 History rOPINIRole HCl [Requip] 0.5 mg PO HS 11/28/16 11/08/18 History Acetaminophen [Tylenol Arthritis] 650 mg PO BID PRN 09/09/18 11/08/18 History DULoxetine [Cymbalta] 60 mg PO QAM 09/09/18 11/08/18 History Dexamethasone 2 mg PO QAM 09/09/18 09/09/18 History Lidocaine [Lidocaine Pain Relief] 1 patch TOP DAILY PRN 09/09/18 11/08/18 History Magnesium Hydroxide [Milk Of 30 ml PO DAILY PRN 09/09/18 11/08/18 History Magnesium] OxyCONTIN 40 mg PO Q12H PRN 09/09/18 11/09/18 History Sevelamer Carbonate [Renvela] 800 mg PO TID 09/09/18 11/08/18 History Warfarin Sodium [Coumadin] 3 mg PO 1800 09/09/18 09/09/18 History oxyCODONE HCl/Acetaminophen 1 tab PO Q4H 09/09/18 11/08/18 History [Percocet] Levofloxacin [Levaquin] 500 mg PO Q48H 10 Days #5 tablet 09/12/18 Rx Vancomycin HCl 1 gm IVPB WILLCALL 10 Days #0 bag 09/12/18 Rx Furosemide [Lasix] 40 mg PO DAILY 11/08/18 11/08/18 History LORazepam [Lorazepam] 0.5 mg PO PRN PRN 11/08/18 11/08/18 History Loperamide HCl [Imodium A-D] 2 mg PO PRN PRN 11/08/18 11/08/18 History - History PMHx: HLD, ESRD on dialysis M/W/F, chronic back pain, depression, Hypothyroid, Insomnia, Iron & folate deficiency anemia, GERD 2/2 sliding hiatal hernia, History of HTN, Insomnia. PSHx: , hysterectomy, hernia repair, cholecystectomy, back surgery, R knee replacement, fistula for dialysis FHx: Did not assess. Social: - Lives in [facility] - Has daughter who lives 3 hours away. - Has [id number] locally who helps to take care of health decisions (not official HPOA) - Denies current tobacco, alcohol, drug use. - Former smoker: 20 years at 0.5 ppd ([id number]) - Review of Systems General: reports: weight/appetite/sleep changes (reports no appetite past 2 days and has not eaten or had much to drink). denies: fever/chills ENT: denies: nasal congestion Respiratory: denies: cough, congestion, shortness of breath Cardiovascular: reports: edema. denies: chest pain, palpitation Gastrointestinal: reports: nausea, abdominal pain. denies: vomiting, diarrhea, constipation Genitourinary: reports: dysuria. denies: polyuria Skin: denies: rashes Musculoskeletal: reports: pain, tenderness, swelling - Vital signs BP: [119/55] HR: [84 bpm] RR: [14-20] Tmax: [97.6 F] Pox: [97]% on [RA] Wt: [ 79.2 kg] - Physical Exam Constitutional: awake, alert and oriented HEENT: normocephalic and atraumatic, PERRLA, conjunctiva clear, MMM, oropharynx clear, other (No teeth) Neck: supple, trachea midline, other (R subclavian port) Heart: RRR, normal S1/S2 (2/6 systolic murmur best heard over L 4th intercostal space), other (pulses difficult to palpate in LE) Lungs: CTAB, no rales/rhonchi, no wheezing Abdomen: soft, bowel sounds present, other (diffusely tender, no suprapubic tenderness) Musculoskeletal: other (increased lower extremity edema L>R. Erythema over LE bilaterally, with tense bulla over L posterior LE, hardened bruise over R posterior LE, mulitiple small bruises over L foot and in between toes. Markedly tender to palpation over LE b/l) Neurological: no focal deficit Skin: capillary refill <2 seconds Heme/Lymphatic: other (see MSK.) Psychiatric: normal mood and affect FMR H&P: Results - Labs Result Diagrams: 11/12/18 04:20 11/12/18 04:20 Lab results: WBC 12.7 thou/uL (4.8-10.8) H 11/08/18 17:13 Hgb 7.3 g/dL (12.0-16.0) L 11/08/18 17:13 Hct 23.7 % (36.0-47.0) L 11/08/18 17:13 MCV 104.0 fL (78.0-98.0) H 11/08/18 17:13 Plt Count 345 thou/uL (130-400) 11/08/18 17:13 Neutrophils % 82.4 % (42.0-75.0) H 11/08/18 17:13 Sodium 136 mmol/L (136-145) 11/08/18 17:13 Potassium 4.1 mmol/L (3.5-5.1) 11/08/18 17:13 Chloride 95 mmol/L (98-107) L 11/08/18 17:13 Carbon Dioxide 25 mmol/L (23-31) 11/08/18 17:13 BUN 46 mg/dL (9.8-20.1) H 11/08/18 17:13 Creatinine 4.61 mg/dL (0.6-1.1) H 11/08/18 17:13 Glucose 92 mg/dL (83-110) 11/08/18 17:13 Lactic Acid 1.4 mmol/L (0.5-2.2) 11/08/18 17:13 Calcium 7.5 mg/dL (7.8-10.44) L 11/08/18 17:13 Total Bilirubin 0.4 mg/dL (0.2-1.2) 11/08/18 17:13 AST 16 U/L (5-34) 11/08/18 17:13 ALT 9 U/L (8-55) 11/08/18 17:13 Alkaline Phosphatase 76 U/L (40-150) 11/08/18 17:13 B-Natriuretic Peptide 157.8 pg/mL (0-100) H 11/08/18 17:13 Serum Total Protein 4.8 g/dL (6.0-8.3) L 11/08/18 17:13 Albumin 2.8 g/dL (3.4-4.8) L 11/08/18 17:13 Lipase 10 U/L (8-78) 11/08/18 17:13 Urine Ketones Trace mg/dL (Negative) A 11/08/18 18:45 Urine Blood Large (Negative) A 11/08/18 18:45 Urine Nitrite Negative (Negative) 11/08/18 18:45 Ur Leukocyte Esterase Large (Negative) H 11/08/18 18:45 Urine RBC 21-50 HPF (0-3) A 11/08/18 18:45 Urine WBC Greater Than 50 HPF (0-3) A 11/08/18 18:45 Ur Squamous Epith Cells 4-6 HPF (0-3) A 11/08/18 18:45 Urine Bacteria 4+ HPF (None Seen) A 11/08/18 18:45 INR: 3.5. Supratherapeutic - Radiology Interpretation CT scan - abdomen Status: report reviewed by me Additional comment: IMPRESSION: 1. Severe left anterior thigh soft tissue swelling suggesting cellulitis. This could also be due to vascular congestive changes from deep venous thrombosis. 2. Unchanged left adnexal mass. Nonemergent follow-up ultrasound in six months recommended. 3. Renal atrophy. 4. Paraspinal as well as hip flexor and extensor muscle atrophy. 5. Similar appearance of large sliding hiatal hernia. 6. No free air or free fluid within the pelvis. 7. Unformed stool within the ascending colon suggesting diarrhea. Chest x-ray Status: image reviewed by me, report reviewed by me Additional comment: IMPRESSION: Right suprahilar parenchymal opacity. Correlate with concerns for pneumonia. Follow-up recommended. US - venous Status: report reviewed by me Additional comment: IMPRESSION: Limited study without evidence for lower extremity deep venous thrombosis. FMR H&P: A/P - Problem List (1) Hematoma of lower extremity Current Visit: Yes Status: Acute Code(s): S80.10XA - CONTUSION OF UNSPECIFIED LOWER LEG, INITIAL ENCOUNTER Qualifiers: Encounter type: initial encounter (2) Deep vein thrombosis (DVT) of left lower extremity Current Visit: No Status: Chronic Code(s): I82.402 - ACUTE EMBOLISM AND THOMBOS UNSP DEEP VEINS OF L LOW EXTREM Qualifiers: Chronicity: chronic (3) Supratherapeutic INR Current Visit: Yes Status: Acute Code(s): R79.1 - ABNORMAL COAGULATION PROFILE (4) UTI (urinary tract infection) Current Visit: No Status: Chronic Qualifiers: Indwelling urinary catheter type: unspecified (5) Chronic anemia Current Visit: No Status: Chronic Code(s): D64.9 - ANEMIA, UNSPECIFIED (6) Chronic low back pain Current Visit: No Status: Chronic Code(s): M54.5 - LOW BACK PAIN; G89.29 - OTHER CHRONIC PAIN (7) Dyslipidemia Current Visit: No Status: Chronic Code(s): E78.5 - HYPERLIPIDEMIA, UNSPECIFIED (8) ESRD (end stage renal disease) on dialysis Current Visit: No Status: Chronic Code(s): N18.6 - END STAGE RENAL DISEASE; Z99.2 - DEPENDENCE ON RENAL DIALYSIS (9) Folate deficiency Current Visit: No Status: Chronic Code(s): E53.8 - DEFICIENCY OF OTHER SPECIFIED B GROUP VITAMINS (10) GERD (gastroesophageal reflux disease) Current Visit: No Status: Chronic Code(s): K21.9 - GASTRO-ESOPHAGEAL REFLUX DISEASE WITHOUT ESOPHAGITIS Qualifiers: Esophagitis presence: esophagitis presence not specified Qualified Code(s) : K21.9 - Gastro-esophageal reflux disease without esophagitis (11) Hypothyroidism Current Visit: No Status: Chronic Code(s): E03.9 - HYPOTHYROIDISM, UNSPECIFIED Qualifiers: Hypothyroidism type: unspecified Qualified Code(s): E03.9 - Hypothyroidism , unspecified (12) PUD (peptic ulcer disease) Current Visit: No Status: Chronic Code(s): K27.9 - PEPTIC ULC, SITE UNSP, UNSP AC OR CHR, W/O HEMOR OR PERF - Plan 78-yo female presenting for: 1. Hematomas of lower extremities bilaterally - Likely developed in setting of supratherapeutic INR. - Admit to telemetry unit, since patient has history of CHF, DVT and we will hold anticoagulation - Due to possible compartment syndrome, Ortho (Dr. García) consulted. Appreciate recs. - For pain, we will continue patient's home percocet and oxycontin. Fentanyl IV available prn. Monitor vitals and BP closely as patient runs more hypotensive ( 90-110s Systolic). 2. DVT of left lower extremity, femoral, and DVT of R distal lower extremity - Appears to be resolving on repeat U/S as compared w/ prior. However, will need to monitor closely on telemetry as we will hold anticoagulation. - MRI of lower extremities b/l 3. Supratherapeutic INR - Hold coumadin. - We may consider reversing later pending ortho recs, but for now we will just hold coumadin. - Repeat INR in AM. 4. UTI, likely cystitis - Patient has remained afebrile, does not meet SIRS criteria, and was diagnosed with UTI previously. - Will continue to treat w/ cefepime and vancomycin. - Urine culture & susceptibilities pending 5. Chronic anemia - monitor - CBC in AM 6. Chronic back pain - home pain meds 7. Dyslipidemia - stable. Monitor. 8. ESRD on dialysis - Consult nephro Dr. Reno for dialysis tomorrow - BMP in AM 9. Folate deficiency - Monitor 10. GERD - Sliding hiatal hernia seen on CT abd. Continue home meds. Symptomatic management. 11. Hypothyroidism - Continue home medication 12. PUD - Symptomatic management Lucina Jamison MD PGY-1 FMR H&P: Upper Level - Pertinent history 78 year old female with PMH significant for recent sepsis 2/2 UTI, LLE DVT diagnosed 08/02/2018, HLD, HTN, ESRD on HD M//, chronic normocytic anemia, hypothyroidism, GERD, and chronic pain, presents with extreme bilateral lower extremity pain. Patient reports that she hit her leg on the edge of her bed on . She then presented to the ED on 11/05 with bilateral lower extremity pain and extensive bruising. Of note, patient was started on Warfarin back in July when a left common femoral and deep femoral vein were identified. On 11/07 INR was noted to be 6.5. Patient was given one dose of PO vitamin K at that time and Coumadin was held. On 11/08 prior to hospital admission, INR was 4.6. Today, on presentation to ED, INR was noted to be 3.2. Patient endorses bilateral leg pain even with mild touch. She states that her legs have become more tense and swollen over the past 2 days. At baseline, patient does not ambulate. She gets around in a wheelchair. Doppler on 11/05 showed LLE distal superficial femoral intraluminal thrombus without obstruction. There was some notable improvement from prior study on . Sono on this admission shows no evidence of DVT, although exam was limited. Patient with complaint of diffuse abdominal pain. She was recently admitted for sepsis 2/2 UTI. UTI was multi-drug resistant and patient underwent treatment with vancomycin and cefepime. The vancomycin was continued outpatient and given after dialysis. ED performed straight cath UA today which showed grossly infected urine. She was given Vanc and Cefepime in ED which previous UTI was sensitive to. Patient not endorses pain with urination. - Pertinent findings General: Alert and in moderate distress 2/2 pain. Resp: No acute respiratory distress. Not requiring O2 during my evaluation and satting 93-95%. Card: RRR. Ext: Extensive bilateral LE echymosis. Large bullae with possible hematoma formation near left popliteal region. Small hematoma with bullae on right LE below knee. Bilateral LE's below knee are tense and painful. Pain elicited with passive dorsiflexion. Neuro: Distal extremity pulses difficult to palpate 2/2 edema. sensation intact. No focal deficits. - Plan Date/Time: 11/08/182000 I, Viktoriya Ceballos, have evaluated this patient and agree with findings/plan as outlined by technology risk intern resident. Pertinent changes/additions are listed here. 1. Hematoma bilateral LE - Worsened since ED visit on 11/05 - Associated with tenderness to palpation, pain with passive dorsiflexion, - Ortho consulted d/t concern for compartment syndrome; per report, patient was evaluated by ortho, but no plan for intervention. No note available for review. - Patient on warfarin with supratherapeutic INR to 6.5 on 11/07. Warfarin d/c'd on 11/07 and pt given 1 dose PO Vitamin K. INR today 3.5. Will continue to hold warfarin. - Recent venous doppler showed no DVT, although study was limited - MRI WWO contrast of bilateral LE's pending based on clinical course; would have to time with dialysis given contrast - Pain control initially with fentanyl, will restart home meds - Wound care consulted 2. Left common femoral and deep femoral DVT - Patient diagnosed with DVT on 08/02/2018, patient was started on Warfarin at that time - Warfarin stopped 11/07 d/t supratherapeutic INR of 6.5 - Recent venous doppler showed no DVT, although study was limited 3. UTI, complicated - Recent admission for sepsis 2/2 multidrug resistant UTI for which patient was d/c'd on vancomycin to be given with dialysis - Patient with abdominal pain but no dysuria - Given Vanc and Cefepime in ED x1 - Advise to continue vanc with dialysis as last culture sensitive to vanc 4. ESRD on HD M/W/F - Patient reports she missed last dialysis session on Monday - Will time abx with dialysis - Dr. Reno consulted; appreciate recs 5. HTN - Patient hypotensive in ED, will hold medications - Fluid bolus if not maintaining MAPs 6. HLD - Continue home medications 7. Chronic normocytic anemia - Hg downtrending, likely 2/2 hematomas - Monitor closely and transfuse if <7 or symptomatic 8. GERD - Continue home medications Viktoriya Ceballos, DO PGY-3 Addendum - Attending - Attending Attestation Date/Time: 11/12/18 120 I personally evaluated the patient and discussed the management with Dr. Ceballos and team on day of admission. I agree with the History, Examination, Assessment and Plan documented above with any addition or exceptions noted below.
[2018-11-08] MEDS ORDERED: Fentanyl 100 MCG/2 ML VIAL SLOW IVP SCH (21:00)
[2018-11-08] MEDS ORDERED: Acetaminophen 325 MG TAB PO PRN (22:57)
[2018-11-08] MEDS ORDERED: Ondansetron PF 4 MG/2 ML Vial IVP PRN (22:57)
[2018-11-09] MEDS ORDERED: Lidocaine 5% Patch TD PRN (00:13)
[2018-11-09] MEDS: oxyCODONE/Acetaminophen 5 mg/325 mg Tablet PO SCH ×4 (00:44→13:14)
--- NOTE | 2018-11-09 04:11 | CON ---
DATE OF CONSULTATION: CHIEF COMPLAINT: Bilateral leg swelling and pain. HISTORY OF PRESENT ILLNESS: Ms. Pemberton is an 78-year-old female who was in the nursing facility. She does not ambulate. She is essentially bedbound. She does sit at the side of the bed occasionally. She recently was found to have a DVT in the left lower extremity. She was started on Coumadin. It seems that her INR has become supratherapeutic. Several days ago, she was sitting up when she struck her leg against a rail over the posterior aspect of the calves bilaterally. She began having pain and swelling after that. She developed significant swelling and now blistering of her posterior legs. She came back to the emergency department after this was found. She has chronic edema of the legs, but this is now worsening. Orthopedics was consulted to rule out compartment syndrome on this patient. Her pain has been controlled since arrival to the emergency department. She has very little pain at rest, but does have discomfort with movement. PAST MEDICAL HISTORY: Includes end-stage renal disease, on dialysis, chronic lumbar pain, history of hypothyroidism, hypertension, depression. PAST SURGICAL HISTORY: Hiatal hernia repair and dialysis access. FAMILY MEDICAL HISTORY: Noncontributory. SOCIAL HISTORY: The patient lives at [facility]. She denies tobacco, alcohol, or drug use. REVIEW OF SYSTEMS: Positive for bilateral lower extremity symptoms as per HPI. IMAGES: X-rays of the left tibia are reviewed from 3 days ago, these were negative for acute fractures. She has had 2 recent ultrasounds done. The second is very limited in its ability to assess the venous structures. The first did show a DVT of the lower extremity as well as a fluid collection consistent with hematoma at the calf. PHYSICAL EXAMINATION: VITAL SIGNS: Stable. The patient is normotensive, 98% on room air. GENERAL: She is lying supine, alert, talkative, no apparent distress. HEENT: Normocephalic, atraumatic. RESPIRATORY: Breathing comfortably. ABDOMEN: Soft, nontender, and nondistended. MUSCULOSKELETAL: The patient has edema of the upper and lower extremities bilaterally. Her lower extremities have diffuse ecchymosis. She has an eschar over the posterior aspect of the right leg and a large bulla over the posterior aspect of the left leg. There is a large and firm mass over the calf of the left leg consistent with tense hematoma. Compartments are soft. She is able to flex and extend the foot and ankle without significant discomfort. Sensation intact distally. IMPRESSION: Intramuscular hematoma likely bilateral from minor injury with supratherapeutic INR. The patient also has a left lower extremity deep venous thrombosis. PLAN: At this point, the patient is going to be admitted to the hospital by the internal medicine service. She will need to have her INR brought back down to a normal therapeutic level. She likely will need to stay on anticoagulant given that she has had DVTs, but may need at least a window off anticoagulants, so her bleeding can cease. No evidence of compartment syndrome. No need for surgical intervention. The patient will need to elevate the leg. She can use ice as tolerated. She can have pain control. She likely will need wound care once her eschars or blisters become open wounds. Hopefully, this can be managed at her nursing facility. Given that she is bedbound and fairly debilitated, I think she does have a poor outcome. Job ID: [id number]
[2018-11-09] MEDS ORDERED: oxyCODONE ER 20 MG TAB PO PRN (04:18)
[2018-11-09 05:20] LABS: INR-International Normal Ratio 2.4; Prothrombin Time 26.1 SEC (12.0-14.7)
[2018-11-09 05:27] LABS: #Eosinphils 0.1 thou/uL (0.0-0.7); #Lymphocytes 1.2 thou/uL (1.20-3.40); #Monocytes 1.1 thou/uL (0.11-0.59); #Neutrophils 9.2 thou/uL (1.40-6.50); %Basophils 0.2 % (0.0-1.0); %Eosinophils 0.6 % (0.0-10.0); %Lymphocytes 10.4 % (21.0-51.0); %Monocytes 9.6 % (0.0-10.0); %Neutrophils 79.2 % (42.0-75.0); Hemoglobin 6.7 g/dL (12.0-16.0); Mean Corpuscular HGB CONC 30.9 g/dL (32.0-36.0); Mean Corpuscular Hemoglobin 32.2 pg (27.0-31.0); Mean Platelet Volume 7.8 fL (7.4-10.4); Platelet Count 226 thou/uL (130-400); RBC Distribution Width 14.6 % (11.5-14.5); Red Blood Cell (RBC) Count 2.08 mill/uL (4.20-5.40); White Blood Cell (WBC) Count 11.6 thou/uL (4.8-10.8)
[2018-11-09 05:30] LABS: Anion Gap 20 mmol/L (10-20); BUN (Urea Nitrogen) 50 mg/dL (9.8-20.1); Calc. Creatinine Clearance 12 mL/min (70-130); Carbon Dioxide 19 mmol/L (23-31); Chloride 98 mmol/L (98-107); Estimated GFR-MDRD 9; Glucose 71 mg/dL (83-110); Potassium 4.4 mmol/L (3.5-5.1); Sodium 133 mmol/L (136-145)
[2018-11-09] MEDS: Levothyroxine Sodium 88 MCG TAB PO SCH (06:00)
--- NOTE | 2018-11-09 06:16 | PDOC.FM ---
- Subjective Subjective: Pt says she hurts all over, but her legs are a big problem right now. She says she is not light-headed. - Objective MAR Reviewed: Yes Vital Signs & Weight: Vital Signs (12 hours) Temp Pulse Resp BP Pulse Ox 11/09/18 05:51 75/38 L 11/09/18 04:00 98.2 F 91 96 11/09/18 03:35 79/44 L 11/08/18 23:15 97.7 F 83 16 95/46 L 94 L Weight Weight 79.243 kg Result Diagrams: 11/09/18 05:01 11/09/18 05:01 EKG Reviewed by me: Yes (normal sinus rhythm, HR: 80) Phys Exam - Physical Examination Constitutional: NAD HEENT: PERRLA, moist MMs Neck: supple Respiratory: no wheezing decreased breath sounds in lung bases Cardiovascular: RRR, no significant murmur Gastrointestinal: soft, non-tender Musculoskeletal: edema present (3+ pitting, legs are swollen with hematomas and tender to touch) Neurological: non-focal Lymphatic: no nodes Psychiatric: normal affect Deviation from normal: Signifcant hematomas in legs Dx/Plan (1) Hematoma of lower extremity Code(s): S80.10XA - CONTUSION OF UNSPECIFIED LOWER LEG, INITIAL ENCOUNTER Status: Acute Qualifiers: Encounter type: initial encounter (2) Supratherapeutic INR Code(s): R79.1 - ABNORMAL COAGULATION PROFILE Status: Acute (3) UTI (urinary tract infection) Status: Chronic Qualifiers: Indwelling urinary catheter type: unspecified (4) Chronic anemia Code(s): D64.9 - ANEMIA, UNSPECIFIED Status: Chronic (5) Dyslipidemia Code(s): E78.5 - HYPERLIPIDEMIA, UNSPECIFIED Status: Chronic (6) ESRD (end stage renal disease) on dialysis Code(s): N18.6 - END STAGE RENAL DISEASE; Z99.2 - DEPENDENCE ON RENAL DIALYSIS Status: Chronic (7) Folate deficiency Code(s): E53.8 - DEFICIENCY OF OTHER SPECIFIED B GROUP VITAMINS Status: Chronic (8) GERD (gastroesophageal reflux disease) Code(s): K21.9 - GASTRO-ESOPHAGEAL REFLUX DISEASE WITHOUT ESOPHAGITIS Status: Chronic (9) HTN (hypertension) Code(s): I10 - ESSENTIAL (PRIMARY) HYPERTENSION Status: Chronic Qualifiers: Hypertension type: unspecified Qualified Code(s): I10 - Essential (primary ) hypertension (10) Hypothyroidism Code(s): E03.9 - HYPOTHYROIDISM, UNSPECIFIED Status: Chronic (11) PUD (peptic ulcer disease) Code(s): K27.9 - PEPTIC ULC, SITE UNSP, UNSP AC OR CHR, W/O HEMOR OR PERF Status: Chronic (12) Iron (Fe) deficiency anemia Code(s): D50.9 - IRON DEFICIENCY ANEMIA, UNSPECIFIED Status: Acute - Plan Plan: Ms. Pemberton an 78 yo female with history of chronic pain, depression, insomnia, HLD , Hypothroidism, HTN, Iron deficiency anemia, Folate deficiency anemia, GERD presents with bilateral extremity hematomas after recent bilateral DVTs treated with Warfarin that became supratherapeutic. 1. Hematomas of lower extremities bilaterally * Likely developed in setting of supratherapeutic INR. * Admit to telemetry unit, since patient has history of CHF, DVT and we will hold anticoagulation * Due to possible compartment syndrome, Ortho (Dr. García) consulted. Appreciate recs. * For pain, we will continue patient's home percocet and oxycontin. Fentanyl IV available prn. Monitor vitals and BP closely as patient runs more hypotensive ( 90-110s Systolic). * Wound Care consulted (11/09), appreciate their help. 2. DVT of left lower extremity, femoral, and DVT of R distal lower extremity * Appears to be resolving on repeat U/S as compared w/ prior. However, will need to monitor closely on telemetry as we will hold anticoagulation. * MRI of lower extremities b/l 3. Supratherapeutic INR * Hold coumadin. * We may consider reversing later pending ortho recs, but for now we will just hold coumadin. * INR: (11/07) 6 & Vit K given > 4.6 > 3.5 (on admission) > 2.4 4. UTI, likely cystitis * Patient has remained afebrile, does not meet SIRS criteria, and was diagnosed with UTI previously. Received * Will continue to treat w/ cefepime and vancomycin. * Urine culture & susceptibilities pending 5. Pneumonia: * Chest Xray: Right suprahilar parenchymal opacity. Correlate with concerns for pneumonia. * Will monitor for now, but no s/s. 6. HTN * Pt is currently hypotensive, so monitoring BP every 30 minutes until blood transfusion finishes, then re-evaluate. 7. Chronic back pain * On home pain meds: Trazodone, Ropinirole, Lidocaine patch, Percocet, Oxycodone 7. Dyslipidemia * Stable. Monitor. * On home medication: Zetia 8. ESRD on dialysis * Consulted nephro, Dr. Reno (11/09) for dialysis, appreciate his recs. * K: 133, Cr: 4.75, Ca: 7 9. Chronic Folate deficiency/Iron deficiency anemia * H&H: 6.7/21.7 * Transfusing 2 units PRBCs this am: 1 before dialysis and 1 after * Will give folate & iron, as well as Vit B12 home meds * Checking CBCs daily. 10. GERD/PUD * Sliding hiatal hernia seen on CT abd. Continue home meds. Symptomatic management. * On GI prophylaxis: Prilosec 11. Hypothyroidism * On home medication: Levothyroxine 12. Depression * On home medication: Cymbalta Activity: Bedrest Diet: Renal- High Protein VTE Prophylaxis: None at this time Code Status: DNR
[2018-11-09] MEDS ORDERED: Acetaminophen 325 MG TAB PO ONE (07:36)
[2018-11-09] MEDS ORDERED: Vancomycin HCl 1 GM in Sodium Chloride 0.9% 250 ML 250 ML IVPB SCH ×2 (07:45→21:00)
[2018-11-09] MEDS ORDERED: Furosemide 40 MG TAB PO SCH (09:00)
[2018-11-09] MEDS ORDERED: Vancomycin HCl 1 GM in Premix Bag 1 BAG IVPB SCH ×5 (09:00→18:15)
[2018-11-09] MEDS ORDERED: Epoetin (ESRD) 20,000 UNITS/ML SC SCH (09:00)
[2018-11-09] MEDS: Sevelamer Carbonate 800 MG TAB PO SCH ×3 (09:40→21:06)
[2018-11-09] MEDS: Ferrous Sulfate 325 MG TAB PO SCH (09:40)
[2018-11-09] MEDS: DULoxetine 60 MG CAP PO SCH (09:40)
[2018-11-09] MEDS: Cyanocobalamin (Vitamin B-12) 1,000 MCG TAB PO SCH (09:40)
[2018-11-09] MEDS: Folic Acid 1 MG TAB PO SCH (09:40)
[2018-11-09] MEDS: Ezetimibe 10 MG TAB PO SCH (09:40)
[2018-11-09] MEDS: Lactated Ringer's 1,000 ML IV SCH ×2 (09:42→21:05)
--- NOTE | 2018-11-09 10:35 | CON ---
DATE OF CONSULTATION: HISTORY OF PRESENT ILLNESS: Ms. Pemberton is an 78-year-old white female with known history of ESRD - on maintenance hemodialysis and admitted for bilateral leg hematoma. As per her history, the patient was diagnosed with DVT and was on anticoagulation. Her H and H have dropped. Her hemoglobin was also noted to be less than 7. For this reason, she is currently receiving a blood transfusion. We are now being consulted for maintenance hemodialysis. Her blood pressure was noted to be significantly lower this morning. For this reason, we will be holding off the patient's dialysis. REVIEW OF SYSTEMS: Positive for diffuse back pain. Positive for diffuse joint pains, bilateral leg swelling. No chest pain or shortness of breath. No nausea. No vomiting. No diarrhea. No headache. No diplopia. No abdominal pain. No hematochezia. No gross hematuria. No melena. No hematemesis. No headache. Appetite and energy level are fair. PAST MEDICAL HISTORY: 1. ESRD - currently on maintenance hemodialysis Monday, Monday, and Monday - secondary to hypertensive nephropathy. 2. History of hypertension. 3. Hyperlipidemia. 4. Chronic anemia. 5. DJD. 6. Chronic low back pain. 7. Hypothyroidism. 8. Chronic pain syndrome. 9. Recently status post DVT. PAST SURGICAL HISTORY: Status post cuffed dialysis catheter placement, status post AV fistula placement, status post cholecystectomy, status post knee surgery, status post back surgery. FAMILY HISTORY: No family history of ESRD. ALLERGIES: PENICILLIN. TRAUMA: None. IMMUNIZATION: The patient is up-to-date. SOCIAL HISTORY: The patient is in a fpc - three children with 1 . 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 She is . Education, high school. Used to smoke - half a pack for 20 years, currently not smoking. No alcohol. Status post blood transfusion. PHYSICAL EXAMINATION: VITAL SIGNS: Blood pressure is noted at 73/58, heart rate is 91, temperature 98.2, and pulse ox 96%. GENERAL: The patient is awake, supine, comfortable, not in overt distress. SKIN: Adequate turgor. HEENT: Pale conjunctivae. Anicteric sclerae. NECK: No neck mass. No carotid bruits. No JVD. CHEST: No deformities. LUNGS: Clear breath sounds. No wheezing. HEART: Normal sinus rhythm. No murmurs, no gallops, and no rubs. ABDOMEN: Globular, soft, and nontender. No masses. EXTREMITIES: Positive for leg edema. Positive for hematoma in bilateral legs. MEDICATIONS: Medications of November 09, 2018; 1. Cymbalta 60 mg q.a.m. 2. Zetia 10 mg daily. 3. Ferrous sulfate 325 mg daily. 4. Folvite 1 mg daily. 5. Furosemide 40 mg daily. 6. Levothyroxine 88 mcg daily. 7. OxyContin 40 mg q.12. 8. Percocet 5/325 q.4 hours. 9. Protonix 40 mg daily. 10. Requip 0.5 mg daily. 11. Renvela 800 mg p.o. t.i.d. 12. Desyrel 50 mg at bedtime. 13. Status post vancomycin. LABORATORY DATA: Laboratories of November 09, 2018; white count 11.6, hemoglobin 6.7. Sodium 133, potassium 4.4, chloride 98, carbon dioxide 19, BUN 50, creatinine 4.75, and calcium 7.0. On November 08, 2018, chest x-ray shows an opacity in the right suprahilar area. CT scan of the abdomen and pelvis, November 08, 2018, shows severe left anterior thigh soft tissue swelling suggestive of cellulitis, left adnexal mass, renal atrophy, hiatal hernia. ASSESSMENT AND PLAN: 1. End-stage renal disease, stable. However, due to the most recent low blood pressure, we will hold off dialysis today. Try to optimize her hemodynamics. 2. Anemia, currently receiving packed RBC. We will resume back her Epogen at 10 ,000 units subcu every week. 3. Cellulitis. Currently on IV vancomycin. 4. Overall, agree with current management. Job ID: [id number] [facility]
[2018-11-09] MEDS: Lidocaine Patch Removal 1 EACH TOP SCH ×2 (10:41→21:06)
[2018-11-09] MEDS ORDERED: Lactated Ringer's 500 ML IV SCH ×2 (11:00→23:30)
[2018-11-09] MEDS ORDERED: Sodium Chloride 0.9% 500 ML IVPB SCH (11:15)
--- NOTE | 2018-11-09 11:38 | PRG ---
DATE OF SERVICE: 11/09/2018 Ms. Pemberton is a very unfortunate 78-year-old lady with multiple medical problems including end-stage renal dialysis on Monday, Monday, and Monday. She also has a history of DVT and her protime was recently supratherapeutic on Coumadin. She developed some hematomas in both of her lower extremities. There was concern for compartment syndrome, and the patient was evaluated by Orthopedics. They did not feel the patient had compartment syndrome. We are attempting to adjust her pain medications. This morning, she did have a drop in her blood pressure to 74 systolic. We are going to go ahead and give her a bolus of 500 mL saline and transfuse her with an additional unit of packed red blood cells. In the event, she is alert with no decrease in her sensorium other than complaints of pain. Her pulse rate is 86. Job ID: [id number]
[2018-11-09] MEDS ORDERED: EPOETIN ALFA-EPBX (ESRD) 4,000 UNIT/ML VIAL SC SCH (12:00)
[2018-11-09] MEDS ORDERED: Lidocaine 2% Jelly 5 ML TUBE TOP PRN (12:41)
[2018-11-09] MEDS ORDERED: Vancomycin HCl 750 MG in Sodium Chloride 0.9% 250 ML 250 ML IVPB SCH ×2 (15:00→18:15)
[2018-11-09] MEDS ORDERED: Vancomycin HCl 1.25 GM in Sodium Chloride 0.9% 250 ML 250 ML IVPB SCH ×2 (15:00→18:15)
[2018-11-09] MEDS ORDERED: HOLD VANCOMYCIN FOR LEVEL >20 FS SCH ×2 (15:00→18:15)
[2018-11-09] MEDS ORDERED: Vancomycin HCl 500 MG in Sodium Chloride 0.9% 100 ML IVPB SCH ×2 (15:00→18:15)
[2018-11-09] MEDS: oxyCODONE 5 MG TAB PO SCH ×2 (15:08→15:15)
--- NOTE | 2018-11-09 15:56 | PDOC.EVN ---
Event Note - Event Note Event Note: We have been evaluating Ms. Pemberton this afternoon for low bp this afternoon. She was placed on 100cc/h maintenance fluids this morning and 1 U of PRBCs for the low bp. Her bp was low today around 11 this morning we gave 2 500 cc boluses. She was also given another unit of PRBCs. Wound care came by and dressed her legs. Palliative care came by to discuss symptom management and goals of care. They recommended IV Tylenol and Oxycodone 5 mg. She also wanted family to be contacted at this time, so they were going to reach out. Her bp is still 83/45 currently. We discussed with the patient and she would like to continue management of her low bp and to hold off on pain medication. We are also transferring her to the [facility], so she can have closer follow-up.
--- NOTE | 2018-11-09 16:07 | PDOC.EVN ---
Event Note - Event Note Event Note: Called by Dr Ross to reassess Kay for persistent hypotension in spite of IVF and blood transfusion. I found Kay to be alert and appropropriately conversant about her current state. I am recommending continued judicious IVF rescucitation and transfer to [facility]. We are discussing with Radiologist to consider imaging means to see there is intraabdominal bleeding. Currently she has no abd pain or distention but we considering non leg bleeding as a cause for her hypotension.
[2018-11-09] MEDS ORDERED: oxyCODONE 5 MG TAB PO SCH (17:00)
[2018-11-09] MEDS ORDERED: Dexamethasone 6 MG in Sodium Chloride 0.9% 50 ML IVPB SCH (18:00)
[2018-11-09] MEDS: Hydrocortisone Sod Succ/PF 100 mg/2 ml Vial IVP SCH ×2 (18:09→23:34)
[2018-11-09 19:17] LABS: Hemoglobin 7.9 g/dL (12.0-16.0); Mean Corpuscular HGB CONC 32.9 g/dL (32.0-36.0); Mean Corpuscular Hemoglobin 32.5 pg (27.0-31.0); Mean Corpuscular Volume 98.9 fL (78.0-98.0); Mean Platelet Volume 6.8 fL (7.4-10.4); Platelet Count 219 thou/uL (130-400); RBC Distribution Width 15.4 % (11.5-14.5); Red Blood Cell (RBC) Count 2.42 mill/uL (4.20-5.40); White Blood Cell (WBC) Count 9.5 thou/uL (4.8-10.8)
[2018-11-09 19:32] LABS: Lactic Acid 0.7 mmol/L (0.5-2.2)
--- NOTE | 2018-11-09 19:40 | PDOC.EVN ---
Event Note - Event Note Event Note: Evaluated at bedside, patient AxOx3 BPs mid 90s/40s, pulse 80s Complaining of pain in arms and legs bilaterally. On re-check she is sleeping comfortably. Hgb 7.9, Lactic 1.4-> 0.[address] abd upon admission which showed no free fluid, bleed elsewhere in the body is a consideration. Will continue with gentle re-hydration in this ESRD patient for now.
[2018-11-09] MEDS ORDERED: traZODone HCl 50 MG TAB PO SCH (21:00)
[2018-11-09] MEDS ORDERED: rOPINIRole HCl 0.5 MG TAB PO SCH (21:00)
[2018-11-09] MEDS: Cefepime 2 GM in Sodium Chloride 0.9% 100 ML IVPB SCH (21:05)
[2018-11-09] MEDS: Acetaminophen 1,000 MG in Premix Bag 1 BAG IVPB SCH (21:06)
--- NOTE | 2018-11-09 22:21 | PDOC.EVN ---
Event Note - Event Note Event Note: Paged for "dark chocolate" colored stool, ordered FOBT which came back positive Patient came in with supratherapeutic INR, GI bleed is possibility BP was 69/29 with patient resting comfortably on L side, patient AxOx3, knows president, complains about leg pain Re-positioned patient. BP 86/40 Will bolus 500ml. Trying to be judicious on fluid resuscitation 2/2 ESRD. With lactic acid trending down to 0.7 it appears she is perfusing tissues will. Will hold off from pressors for now, but watch closely Addendum - Attending - Attending Attestation Date/Time: 11/09/18 [id number] I personally evaluated the patient and discussed the management with Dr. Walker I agree with the History, Examination, Assessment and Plan documented above with any addition or exceptions noted below. Patient examined with Dr Walker patient alert responsive resting comfortably abdomen soft nontender rectal soft non melanotic stool no mass rec correction INR to normal, consider midodrine prn agree with fluid bolus and expectant management.
[2018-11-09] MEDS ORDERED: Pantoprazole 40 MG VIAL IVP SCH (22:45)
--- NOTE | 2018-11-09 23:09 | PDOC.EVN ---
Event Note - Event Note Event Note: BP 89/50 Rectal exam shows dark stool but not melanotic, no gross blood Added 1 time dose vitamin K as INR was 2.4 today, will re-check INR in AM
[2018-11-09] MEDS ORDERED: Phytonadione 10 MG/ML AMP PO SCH (23:15)
--- NOTE | 2018-11-10 05:32 | PDOC.FM ---
- Subjective Subjective: She said she ate well overnight. Not in pain this morning as long as she doesn' t move. Ready to see her daughter today. Complaining of mouth pain today. - Objective MAR Reviewed: Yes Vital Signs & Weight: Vital Signs (12 hours) Temp Pulse Ox 11/10/18 03:46 97.1 F L 11/10/18 00:53 97.8 F 11/09/18 20:00 97.7 F 95 Weight Admit Weight 79.107 kg Weight 83.869 kg Most Recent Monitor Data Heart Rate from ECG 65 NIBP 93/37 NIBP BP-Mean 55 Respiration from ECG 20 SpO2 97 I&O: 11/08/18 11/09/18 11/10/18 06:59 06:59 06:59 Intake Total 120 1000 Output Total 0 2150 Balance 120 -1150 Result Diagrams: 11/10/18 06:22 11/10/18 06:22 EKG Reviewed by me: Yes (elevated T waves and prolonged ) Phys Exam - Physical Examination Constitutional: NAD HEENT: PERRLA, moist MMs, oral pharynx no lesions (No obvious lesions, will order Magic mouth wash) Neck: supple Respiratory: clear to auscultation bilateral Cardiovascular: RRR, no significant murmur Gastrointestinal: soft, non-tender, positive bowel sounds Musculoskeletal: edema present (3+ pitting edema) Neurological: non-focal Lymphatic: no nodes Psychiatric: normal affect, A&O x 3 Deviation from normal: hematomas present bilateral lower extremities Dx/Plan (1) Hematoma of lower extremity Code(s): S80.10XA - CONTUSION OF UNSPECIFIED LOWER LEG, INITIAL ENCOUNTER Status: Acute Qualifiers: Encounter type: initial encounter (2) Supratherapeutic INR Code(s): R79.1 - ABNORMAL COAGULATION PROFILE Status: Acute (3) UTI (urinary tract infection) Status: Chronic Qualifiers: Indwelling urinary catheter type: unspecified (4) Chronic anemia Code(s): D64.9 - ANEMIA, UNSPECIFIED Status: Chronic (5) Dyslipidemia Code(s): E78.5 - HYPERLIPIDEMIA, UNSPECIFIED Status: Chronic (6) ESRD (end stage renal disease) on dialysis Code(s): N18.6 - END STAGE RENAL DISEASE; Z99.2 - DEPENDENCE ON RENAL DIALYSIS Status: Chronic (7) Folate deficiency Code(s): E53.8 - DEFICIENCY OF OTHER SPECIFIED B GROUP VITAMINS Status: Chronic (8) GERD (gastroesophageal reflux disease) Code(s): K21.9 - GASTRO-ESOPHAGEAL REFLUX DISEASE WITHOUT ESOPHAGITIS Status: Chronic (9) HTN (hypertension) Code(s): I10 - ESSENTIAL (PRIMARY) HYPERTENSION Status: Chronic Qualifiers: Hypertension type: unspecified Qualified Code(s): I10 - Essential (primary ) hypertension (10) Hypothyroidism Code(s): E03.9 - HYPOTHYROIDISM, UNSPECIFIED Status: Chronic (11) PUD (peptic ulcer disease) Code(s): K27.9 - PEPTIC ULC, SITE UNSP, UNSP AC OR CHR, W/O HEMOR OR PERF Status: Chronic (12) Iron (Fe) deficiency anemia Code(s): D50.9 - IRON DEFICIENCY ANEMIA, UNSPECIFIED Status: Acute - Plan Plan: Ms. Pemberton an 78 yo female with history of chronic pain, depression, insomnia, HLD , Hypothroidism, HTN, Iron deficiency anemia, Folate deficiency anemia, GERD presents with bilateral extremity hematomas after recent bilateral DVTs treated with Warfarin that became supratherapeutic. 1. Hematomas of lower extremities bilaterally * Likely developed in setting of supratherapeutic INR. * Admit to telemetry unit, since patient has history of CHF, DVT and we will hold anticoagulation * Due to possible compartment syndrome, Ortho (Dr. García) consulted. Appreciate recs. * For pain, we will continue patient's home percocet and oxycontin. Fentanyl IV d/c due to BP. * Wound Care consulted (11/09), appreciate their help. 2. DVT of left lower extremity, femoral, and DVT of R distal lower extremity * Appears to be resolving on repeat U/S as compared w/ prior. However, will need to monitor closely on telemetry as we will hold anticoagulation. * MRI with contrast of lower extremities b/l suggested at admission due to venogram being limited. Will hold off though due to low bp and inability to dialyze for now. 3. Supratherapeutic INR * Holding coumadin for now * INR: (11/07) 6 & Vit K given > 4.6 > 3.5 (on admission) > 2.4 > 1.6 4. UTI, likely cystitis * Patient has remained afebrile, does not meet SIRS criteria, and was diagnosed with UTI previously. Received * Will continue to treat w/ cefepime and vancomycin. * Urine culture & susceptibilities pending 5. Possible Sepsis * BP is low, trying to determine if this is chronic or acute * Lactate was 1.4 trended to 0.7 * No fever or tachycardia * AAOx3 * 1 BCx: coag Neg Staph- Methicillin Resistant Staph Epi. Considered contaminant , since only in 1 Cx. * UCx: pending * WBC: 12.7 > 11.6 > 9.5 >9.4 * On Vanc & Rocephin * Received 500 cc bolus overnight. 6. Pneumonia * Chest Xray: Right suprahilar parenchymal opacity. Correlate with concerns for pneumonia. * Will monitor for now, but no s/s. 7. Hypotensive * Pt is currently hypotensive, so monitoring BP every hour. * BP was 103/54 > 68/37 (L side) * Will be started on Midodrine. 8. Chronic back pain * On home pain meds: Trazodone, Ropinirole, Lidocaine patch, Percocet, Oxycodone 9. Dyslipidemia * Stable. Monitor. * On home medication: Zetia 10. ESRD on dialysis * Consulted nephro, Dr. Reno (11/09) for dialysis, appreciate his recs. He said he will start her on Midodrine. * K: 4.1 > 4.4 > 5.5 , Cr: 4.75 > 5.26, Ca: 7 > 7.4 * EKG showed elevation of T waves, but not significantly peaked. Also, prolonged QT will keep an eye on it. 11. Chronic Folate deficiency/Iron deficiency anemia * H&H: 6.7/21.7 > 8.2/26.0 * Transfusing 2 units PRBCs this am: 1 before dialysis and 1 after * Will give folate & iron, as well as Vit B12 home meds * Checking CBCs daily. 12. GERD/PUD * Sliding hiatal hernia seen on CT abd. Continue home meds. Symptomatic management. * On GI prophylaxis: Prilosec * Dark stools seen last night. She says she takes iron pills, so they are dark. FOBT performed- positive 13. Hypothyroidism * On home medication: Levothyroxine 14. Depression * On home medication: Cymbalta Lines: Peripheral 100cc/h LR Activity: Bedrest Diet: Renal- High Protein VTE Prophylaxis: None at this time Code Status: DNR Dispo: Her stay will be > 48 h. Treating UTI and trying to manage bleeding right now. Addendum - Attending - Attending Attestation Date/Time: 11/10/181811 I personally evaluated the patient and discussed the management with Dr. Ross I agree with the History, Examination, Assessment and Plan documented above with any addition or exceptions noted below. Patient with below knee DVT rec complete normalization of INR for now can address further treatment when bleeding issue resolved. Patient with persistent hypotension not volume overloaded will monitor for need hemodialysis appreciate recommendations of Nephrology and Critical Care.
[2018-11-10] MEDS: Levothyroxine Sodium 88 MCG TAB PO SCH (05:58)
[2018-11-10] MEDS: Hydrocortisone Sod Succ/PF 100 mg/2 ml Vial IVP SCH ×4 (05:58→23:20)
[2018-11-10] MEDS: Lactated Ringer's 1,000 ML IV SCH ×2 (05:59→17:44)
[2018-11-10] MEDS: Acetaminophen 1,000 MG in Premix Bag 1 BAG IVPB SCH ×3 (05:59→22:00)
[2018-11-10 06:33] LABS: #Lymphocytes 0.6 thou/uL (1.20-3.40); #Monocytes 0.1 thou/uL (0.11-0.59); #Neutrophils 8.6 thou/uL (1.40-6.50); %Eosinophils 0.3 % (0.0-10.0); %Lymphocytes 6.2 % (21.0-51.0); %Monocytes 1.5 % (0.0-10.0); Hemoglobin 8.2 g/dL (12.0-16.0); Mean Corpuscular HGB CONC 31.7 g/dL (32.0-36.0); Mean Corpuscular Hemoglobin 31.9 pg (27.0-31.0); Mean Platelet Volume 7.2 fL (7.4-10.4); Platelet Count 203 thou/uL (130-400); RBC Distribution Width 15.7 % (11.5-14.5); Red Blood Cell (RBC) Count 2.58 mill/uL (4.20-5.40); White Blood Cell (WBC) Count 9.4 thou/uL (4.8-10.8)
[2018-11-10 06:39] LABS: INR-International Normal Ratio 1.6; Prothrombin Time 18.9 SEC (12.0-14.7)
[2018-11-10 06:50] LABS: Anion Gap 19 mmol/L (10-20); BUN (Urea Nitrogen) 57 mg/dL (9.8-20.1); Calc. Creatinine Clearance 11 mL/min (70-130); Calcium 7.4 mg/dL (7.8-10.44); Carbon Dioxide 22 mmol/L (23-31); Chloride 97 mmol/L (98-107); Estimated GFR-MDRD 8; Glucose 115 mg/dL (83-110); Potassium 5.5 mmol/L (3.5-5.1); Sodium 132 mmol/L (136-145)
[2018-11-10] MEDS ORDERED: DEXAMETHASONE 2 MG PO SCH (09:00)
[2018-11-10] MEDS ORDERED: Pantoprazole 40 MG VIAL IVP SCH (09:00)
[2018-11-10] MEDS: Ferrous Sulfate 325 MG TAB PO SCH (09:45)
[2018-11-10] MEDS: Folic Acid 1 MG TAB PO SCH (09:45)
[2018-11-10] MEDS: Cyanocobalamin (Vitamin B-12) 1,000 MCG TAB PO SCH (09:45)
[2018-11-10] MEDS: DULoxetine 60 MG CAP PO SCH (09:45)
[2018-11-10] MEDS: Ezetimibe 10 MG TAB PO SCH (09:47)
[2018-11-10] MEDS: Sevelamer Carbonate 800 MG TAB PO SCH ×3 (09:48→20:14)
[2018-11-10] MEDS ORDERED: Aluminum & Magnesium Hydroxide 60 ML, Lidocaine 2% Viscous Solution 30 ML, diphenhydrAM... SSW PRN (10:19)
[2018-11-10] MEDS ORDERED: Heparin 1,000 UNITS/ML VIAL ONE (11:11)
[2018-11-10] MEDS: Lidocaine Patch Removal 1 EACH TOP SCH ×2 (11:14→20:14)
--- NOTE | 2018-11-10 11:49 | PRG ---
DATE OF SERVICE: SUBJECTIVE: Ms. Pemberton is an 78-year-old white female with known history of ESRD and was admitted due to a significant symptomatic anemia secondary to bleeding in the lower extremities. No new complaints today. She is doing better. She is still on the hypotensive side. Case was discussed with the family residency program. We will start this patient on sodium chloride tablet as well as midodrine. No other complaints today. No chest pain or shortness of breath. OBJECTIVE: VITAL SIGNS: Blood pressure 90/41, heart rate 54, respiratory rate 10, oxygen saturation 95%. GENERAL: Awake, alert, comfortable, not in distress. SKIN: Adequate turgor. HEENT: Slightly pale conjunctivae. Anicteric sclerae. No neck mass. No carotid bruits. No JVD. CHEST: No deformities. LUNGS: Clear breath sounds. HEART: Normal sinus rhythm. No murmurs, gallops, or rubs. ABDOMEN: Globular, soft, nontender. EXTREMITIES: No edema. No deformities. MEDICATIONS: Medications of November 10, 2018, reviewed. LABORATORY DATA: Laboratories of November 10, 2018; white count 9.4, hemoglobin 8.2, sodium 132, potassium 5.5, chloride 97, carbon dioxide 22, BUN 57, creatinine 5.26, glucose 115, calcium 7.4, cortisol level 9.5, procalcitonin 0.81. ASSESSMENT AND PLAN: 1. End-stage renal disease, stable. We will minimize fluid removal due to the low blood pressure. We will give volume/fluid challenge 250 mL of normal saline prior to dialysis. 2. We will use no heparin due to the recent episode of bleeding/ecchymosis on the lower legs. 3. Status post ecchymosis/bleeding of lower legs. Off anticoagulation. The patient previously has a history of deep vein thrombosis. 4. Anemia, p.r.n. blood transfusion, continue weekly Epogen. 5. Hypotension, sodium chloride tablet 1 g t.i.d. as well as midodrine has been started. I agree with current management. Job ID: [id number]
--- NOTE | 2018-11-10 15:30 | CON ---
DATE OF CONSULTATION: 11/10/2018 SERVICE: Pulmonary medicine. REASON FOR CONSULTATION: [facility] patient. HISTORY OF PRESENT ILLNESS: The patient is an 78-year-old white female with past medical history significant for chronic steroid use. She is also on chronic anticoagulation for a DVT in the right upper extremity. She presented to the hospital with increasing abdominal pain and bilateral leg pain. She had ecchymoses throughout her legs. Her INR was supratherapeutic. As such, this was interrupted. When she got put in the hospital, her steroid was interrupted. On presentation to the hospital, she actually had a normal blood pressure. Over the course of 2 days, she had increasing hypotension. She was subsequently brought to the to the [facility]. She is a DNAR. That being said, she does want aggressive maneuvers taken in order to prevent her otherwise from passing away soon. There was not any evidence of end-organ damage. The patient was mentating fine throughout this entire event. She has moved to [facility] as a precaution. She got multiple boluses of fluid. She is currently on dialysis and tolerating that okay for the time being. She denies any current fevers or chills. She has not been having any cough or sputum production. She currently denies any abdominal discomfort. Anywhere that I poke on her legs , she has significant discomfort and tenderness. PAST MEDICAL HISTORY: 1. Veno-thromboembolic disease. 2. Hypertension. 3. Dyslipidemia. 4. End-stage renal disease. 5. Major depressive disorder. 6. Hypothyroidism. 7. Anemia of chronic kidney disease. 8. Gastroesophageal reflux disease. 9. Insomnia. PAST SURGICAL HISTORY: 1. section. 2. Hysterectomy. 3. Herniorrhaphy. 4. Cholecystectomy. 5. Back surgery. 6. Right knee replacement. 7. Fistula for dialysis. 8. Right IJ tunneled catheter. FAMILY HISTORY: Noncontributory. SOCIAL HISTORY: She lives at the [place]. She has no exposure to chemicals, dust , asbestos, or tuberculosis. She denies any current alcohol, tobacco, or illicit drug use. She does have a 10 to 52-mwcg-htfe history of smoking, but quit remotely. ALLERGIES: PENICILLIN. MEDICATIONS: List of her inpatient medications was reviewed. No specific updates were made at this time. REVIEW OF SYSTEMS: General, head, ears, eyes, nose, throat, cardiovascular, respiratory, GI, , musculoskeletal, neurologic, and skin are negative except as mentioned in the HPI. PHYSICAL EXAMINATION: VITAL SIGNS: Afebrile with a current temperature of 97.2, pulse 56, blood pressure 79/34, respirations 16, and saturation 96% on 1 L nasal cannula. GENERAL: The patient is awake and alert, in no apparent distress. LUNGS: Decent air entry. Dependent crackles are minimal. There is no prolonged expiratory phase or wheezing present. HEART: Normal rate, regular. ABDOMEN: Soft. Nontender. Nondistended. Bowel sounds are positive. MUSCULOSKELETAL: No cyanosis or clubbing. There is diffuse 1 to 2+ pitting throughout. Multiple ecchymoses are present. : No Davis. NEUROLOGIC: Nonfocal. LABORATORY DATA: WBC 9.4, hemoglobin 8.2, and platelets 203,000. INR 1.6 and downtrending to the normal range. Creatinine 4.75, BUN 50. Basic metabolic profile is otherwise unremarkable. Procalcitonin is 0.8, BNP 157. Urinalysis is significant pyuria, leukocyte esterase, but nitrites are negative. There is 4+ bacteria present. The straight cath on the urine specimen is growing Klebsiella and another gram-negative rut. Blood culture is growing coag-negative Staph in 1/ . ASSESSMENT: 1. Acute hypoxic respiratory failure. 2. End-stage renal disease, on hemodialysis. 3. Hematoma scattered throughout her body, with supratherapeutic INR, resolved. 4. Hypotension, possibly secondary to relative adrenal insufficiency. DISCUSSION AND PLAN: Agree with current management. We will continue our empiric antibiotics. Ultimately, she will need to be put back on anticoagulation, but it would be reasonable to hold off for an additional day. She has been restarted on steroids appropriately. Her blood pressure should form up within little over 24 hours of initiating the steroids. Pulmonary/Critical Care will follow along. 70 minutes have been devoted to this patient in various activities. I personally reviewed all imaging studies and laboratory data noted within this document. For fifty percent of this time, I was interacting with the patient at the bedside or coordinating care with the care team. For the remainder of the time I was immediately available to the patient in the hospital unit. Job ID: [id number] [facility]
--- NOTE | 2018-11-10 16:50 | EKG ---
Test Reason : Blood Pressure : / mmHG Vent. Rate : 084 BPM Atrial Rate : 084 BPM P-R Int : 178 ms QRS Dur : 082 ms QT Int : 416 ms P-R-T Axes : 058 -19 000 degrees QTc Int : 491 ms Sinus rhythm with Premature atrial complexes Moderate voltage criteria for LVH, may be normal variant Prolonged QT Abnormal ECG Confirmed by EDUARDO REZA D.O. ([id number]), associate entertainment editor CESARIO MCALLISTER ([id number]) on 11/10/2018 4:50:16 PM Referred By: Confirmed By:EDUARDO REZA D.O.
[2018-11-10] MEDS: Midodrine HCl 5 MG TAB PO SCH ×2 (17:34→20:14)
[2018-11-10] MEDS: Sodium Chloride 1 GM TAB PO SCH ×2 (17:36→20:14)
[2018-11-10] MEDS: Cefepime 2 GM in Sodium Chloride 0.9% 100 ML IVPB SCH (20:14)
--- NOTE | 2018-11-11 05:02 | PDOC.FM ---
- Subjective Subjective: Pt's family came yesterday. She said she was not feeling well this morning, but nurse said that she was just worn out after visit with family and slept well overnight. BM yesterday. She says she has no pain as long as she lies still. - Objective MAR Reviewed: Yes Vital Signs & Weight: Vital Signs (12 hours) Temp Pulse Ox 11/11/18 03:50 97.8 F 11/10/18 23:53 98.1 F 11/10/18 19:45 99 11/10/18 19:22 98.4 F Weight Admit Weight 79.107 kg Weight 83.869 kg Most Recent Monitor Data Heart Rate from ECG 72 NIBP 106/56 NIBP BP-Mean 72 Respiration from ECG 15 SpO2 98 I&O: 11/09/18 11/10/18 11/11/18 06:59 06:59 06:59 Intake Total 120 2670 200 Output Total 0 2150 250 Balance 120 520 -50 Result Diagrams: 11/11/18 05:41 11/11/18 05:41 Phys Exam - Physical Examination Constitutional: NAD HEENT: PERRLA, moist MMs Neck: supple Respiratory: clear to auscultation bilateral Cardiovascular: RRR, no significant murmur Gastrointestinal: soft, non-tender, positive bowel sounds Musculoskeletal: edema present (3+ hard to feel pulses) Neurological: non-focal, normal sensation Lymphatic: no nodes Psychiatric: normal affect, A&O x 3 Deviation from normal: hematomas in legs Dx/Plan (1) Hematoma of lower extremity Code(s): S80.10XA - CONTUSION OF UNSPECIFIED LOWER LEG, INITIAL ENCOUNTER Status: Acute Qualifiers: Encounter type: initial encounter (2) Supratherapeutic INR Code(s): R79.1 - ABNORMAL COAGULATION PROFILE Status: Acute (3) UTI (urinary tract infection) Status: Chronic Qualifiers: Indwelling urinary catheter type: unspecified (4) Chronic anemia Code(s): D64.9 - ANEMIA, UNSPECIFIED Status: Chronic (5) Dyslipidemia Code(s): E78.5 - HYPERLIPIDEMIA, UNSPECIFIED Status: Chronic (6) ESRD (end stage renal disease) on dialysis Code(s): N18.6 - END STAGE RENAL DISEASE; Z99.2 - DEPENDENCE ON RENAL DIALYSIS Status: Chronic (7) Folate deficiency Code(s): E53.8 - DEFICIENCY OF OTHER SPECIFIED B GROUP VITAMINS Status: Chronic (8) GERD (gastroesophageal reflux disease) Code(s): K21.9 - GASTRO-ESOPHAGEAL REFLUX DISEASE WITHOUT ESOPHAGITIS Status: Chronic Qualifiers: Esophagitis presence: esophagitis presence not specified Qualified Code(s) : K21.9 - Gastro-esophageal reflux disease without esophagitis (9) HTN (hypertension) Code(s): I10 - ESSENTIAL (PRIMARY) HYPERTENSION Status: Chronic Qualifiers: Hypertension type: unspecified Qualified Code(s): I10 - Essential (primary ) hypertension (10) Hypothyroidism Code(s): E03.9 - HYPOTHYROIDISM, UNSPECIFIED Status: Chronic Qualifiers: Hypothyroidism type: unspecified Qualified Code(s): E03.9 - Hypothyroidism , unspecified (11) PUD (peptic ulcer disease) Code(s): K27.9 - PEPTIC ULC, SITE UNSP, UNSP AC OR CHR, W/O HEMOR OR PERF Status: Chronic (12) Iron (Fe) deficiency anemia Code(s): D50.9 - IRON DEFICIENCY ANEMIA, UNSPECIFIED Status: Acute Qualifiers: Iron deficiency anemia type: unspecified iron deficiency Qualified Code(s) : D50.9 - Iron deficiency anemia, unspecified - Plan Plan: Ms. Pemberton an 78 yo female with history of chronic pain, depression, insomnia, HLD , Hypothroidism, HTN, Iron deficiency anemia, Folate deficiency anemia, GERD presents with bilateral extremity hematomas after recent bilateral DVTs treated with Warfarin that became supratherapeutic. 1. Hematomas of lower extremities bilaterally * Likely developed in setting of supratherapeutic INR. * Admit to telemetry unit, since patient has history of CHF, DVT and we will hold anticoagulation * Due to possible compartment syndrome, Ortho (Dr. García) consulted. Appreciate recs. * For pain, we will continue patient's home percocet and oxycontin. Fentanyl IV d/c due to BP. * Wound Care consulted (11/09), appreciate their help. 2. DVT of left lower extremity, femoral, and DVT of R distal lower extremity * Appears to be resolving on repeat U/S as compared w/ prior. However, will need to monitor closely on telemetry as we will hold anticoagulation. * MRI with contrast of lower extremities b/l suggested at admission due to venogram being limited. Will hold off though due to low bp and inability to dialyze for now. 3. Supratherapeutic INR * Holding coumadin for now. She may have other bleeding, because Hgb has dropped. * INR: (11/07) 6 & Vit K given > 4.6 > 3.5 (on admission) > 2.4 > 1.6 > 1.2 4. UTI, likely cystitis * Patient has remained afebrile, does not meet SIRS criteria, and was diagnosed with UTI previously. Received * Will continue to treat w/ cefepime and vancomycin. * Urine culture: Presumptive Klebsiella/Enterobacter, sensitivities pending. 5. Possible Sepsis * BP is low, trying to determine if this is chronic or acute * Lactate was 1.4 trended to 0.7 * No fever or tachycardia * AAOx3 * 1 BCx: coag Neg Staph- Methicillin Resistant Staph Epi. Considered contaminant , since only in 1 Cx. * UCx: Presumptive Klebsiella/Enterobacter & Gram - Rods. Pending Sensitivities. * WBC: 12.7 > 11.6 > 9.5 > 9.4 > 8.4 * On Vanc & Rocephin 6. Pneumonia * Chest Xray: Right suprahilar parenchymal opacity. Correlate with concerns for pneumonia. * Will monitor for now, but no s/s. 7. Hypotensive * Pt is currently hypotensive, so monitoring BP every hour. * BP was 103/54 > 68/37 (L side) bp up this am > 103/54 * Will be started on Midodrine. * Started on Hydrocortisone on 11/09 evening, due to chronic steroid use. BP are coming up. * Consulted Pulm (11/10), appreciate their recs. 8. Chronic back pain * Holding home pain meds: Trazodone, Ropinirole, Lidocaine patch, Percocet, Oxycodone 9. Dyslipidemia * Stable. Monitor. * On home medication: Zetia 10. ESRD on dialysis * Consulted nephro, Dr. Reno (11/09) for dialysis, appreciate his recs. He said he will start her on Midodrine and Sodium Chloride tablets. Conservative management for now, since bps so low. * K: 4.1 > 4.4 > 5.5 > 4.1 , Cr: 4.75 > 5.26 > 4.61, Ca: 7 > 7.4 > 7.5 * EKG showed elevation of T waves, but not significantly peaked. Also, prolonged QT will keep an eye on it and stopped an meds that would interfere. 11. Chronic Folate deficiency/Iron deficiency anemia * H&H: 6.7/21.7 > 8.2/26.0 > 7.2/22.2 * Transfusing 2 units PRBCs this am: 1 before dialysis and 1 after * Will give folate & iron, as well as Vit B12 home meds * Checking CBCs daily. 12. GERD/PUD * Sliding hiatal hernia seen on CT abd. Continue home meds. Symptomatic management. * On GI prophylaxis: Prilosec * Dark stools on 11/09. She says she takes iron pills, so they are dark. FOBT performed- positive 13. Hypothyroidism * On home medication: Levothyroxine 14. Depression * On home medication: Cymbalta Lines: Peripheral 100cc/h LR Activity: Bedrest Diet: Renal- High Protein VTE Prophylaxis: None at this time Code Status: DNR Dispo: Monitoring BP, evaluating for further blood loss, and pending her Urine Cx. We expect her to stay a couple of more days at least. Addendum - Attending - Attending Attestation Date/Time: 11/11/18 7039 I personally evaluated the patient and discussed the management with Dr. Ross I agree with the History, Examination, Assessment and Plan documented above with any addition or exceptions noted below. Patient appears more alert and responsive this AM left calf with significant hematoma liquefaction. Appreciate Nephrology and Critical care recommendations could transfer to lower level of care soon. I am not anxious to restart anticoagulation soon and if so very low dosage, do not feel patient good candidate for consideration IVC filter. RFT and K+ stable continue palliative care. Discussed with patient the possibility of GI related source of bleeding and will continue to trend H/H. Adrenal cortisol suppression test pending.
[2018-11-11] MEDS: Levothyroxine Sodium 88 MCG TAB PO SCH (05:10)
[2018-11-11] MEDS: Hydrocortisone Sod Succ/PF 100 mg/2 ml Vial IVP SCH ×4 (05:10→23:26)
[2018-11-11] MEDS: Acetaminophen 1,000 MG in Premix Bag 1 BAG IVPB SCH ×3 (05:10→19:59)
[2018-11-11 05:55] LABS: #Eosinphils 0.1 thou/uL (0.0-0.7); #Lymphocytes 0.5 thou/uL (1.20-3.40); #Monocytes 0.4 thou/uL (0.11-0.59); #Neutrophils 7.4 thou/uL (1.40-6.50); %Basophils 0.2 % (0.0-1.0); %Eosinophils 0.6 % (0.0-10.0); %Lymphocytes 5.4 % (21.0-51.0); %Monocytes 5.1 % (0.0-10.0); %Neutrophils 88.7 % (42.0-75.0); Hemoglobin 7.2 g/dL (12.0-16.0); Mean Corpuscular HGB CONC 32.2 g/dL (32.0-36.0); Mean Corpuscular Hemoglobin 32.6 pg (27.0-31.0); Mean Platelet Volume 6.9 fL (7.4-10.4); Platelet Count 219 thou/uL (130-400); RBC Distribution Width 15.7 % (11.5-14.5); Red Blood Cell (RBC) Count 2.19 mill/uL (4.20-5.40); White Blood Cell (WBC) Count 8.4 thou/uL (4.8-10.8)
[2018-11-11 06:00] LABS: INR-International Normal Ratio 1.2; Prothrombin Time 14.9 SEC (12.0-14.7)
[2018-11-11 06:20] LABS: Anion Gap 11 mmol/L (10-20); BUN (Urea Nitrogen) 30 mg/dL (9.8-20.1); Calc. Creatinine Clearance 20 mL/min (70-130); Calcium 7.5 mg/dL (7.8-10.44); Carbon Dioxide 26 mmol/L (23-31); Chloride 100 mmol/L (98-107); Estimated GFR-MDRD 15; Glucose 116 mg/dL (83-110); Potassium 4.1 mmol/L (3.5-5.1); Sodium 133 mmol/L (136-145)
[2018-11-11 08:27] LABS: Vancomycin, Trough 17.2 ug/mL
[2018-11-11] MEDS: Sodium Chloride 1 GM TAB PO SCH ×3 (09:15→19:58)
[2018-11-11] MEDS: DULoxetine 60 MG CAP PO SCH (09:16)
[2018-11-11] MEDS: Cyanocobalamin (Vitamin B-12) 1,000 MCG TAB PO SCH (09:16)
[2018-11-11] MEDS: Ferrous Sulfate 325 MG TAB PO SCH (09:16)
[2018-11-11] MEDS: Midodrine HCl 5 MG TAB PO SCH ×3 (09:16→19:58)
[2018-11-11] MEDS: Sevelamer Carbonate 800 MG TAB PO SCH ×3 (09:16→19:58)
[2018-11-11] MEDS: Ezetimibe 10 MG TAB PO SCH (09:16)
[2018-11-11] MEDS: Folic Acid 1 MG TAB PO SCH (09:17)
[2018-11-11] MEDS: Lidocaine Patch Removal 1 EACH TOP SCH ×2 (09:33→19:59)
--- NOTE | 2018-11-11 10:40 | PRG ---
DATE OF SERVICE: 11/11/2018 SUBJECTIVE: Ms. Pemberton is an 78-year-old white female, being followed up by the [facility] for her maintenance hemodialysis. She was also noted to be persistently hypotensive. She has received several liters of normal saline. In addition, she underwent dialysis yesterday. We removed very minimal fluid with dialysis yesterday. In the interim, I have also started the patient on sodium chloride tablet as well as with her midodrine. The patient was initially admitted for diffuse hematoma secondary to her anticoagulation, which has been placed on hold. She has also been restarted with her steroids for possible adrenal insufficiency. OBJECTIVE: VITAL SIGNS: Blood pressure is 100/47, heart rate 78, respiratory rate 16, pulse ox 99%, and temperature 98.6. GENERAL: Awake, alert, and comfortable, not in overt distress. SKIN: Adequate turgor. HEENT: Slightly pale conjunctivae. Anicteric sclerae. NECK: No neck mass. No carotid bruits. No JVD. CHEST: No deformities. LUNGS: Clear breath sounds. HEART: Normal sinus rhythm. No murmur. No gallops. No rubs. ABDOMEN: Globular, soft, and nontender. No masses. EXTREMITIES: No edema. No deformities. MEDICATIONS: Medications of November 11, 2018, were reviewed. LABORATORY DATA: Laboratories of November 11, 2018; white count 8.4, hemoglobin 7.2. Sodium 133, potassium 4.1, chloride 100, carbon dioxide 26, BUN 30, creatinine 2.95, glucose 115, and calcium 7.5. ASSESSMENT AND PLAN: 1. Hypotension - on steroids. Also, the patient on sodium chloride tablets as well as midodrine. Continue supportive care. Slowly improving blood pressure. 2. End-stage renal disease, stable. The patient underwent dialysis yesterday. Minimal fluid removal was done due to the low BP. Potassium is much improved from 5.5 to 4.1. 3. Anemia, continuing weekly Epogen with this patient, p.r.n. blood transfusion. The patient is off her anticoagulation. Agree with current management. We will recheck basic metabolic and CBC in a.m. Job ID: [id number]
--- NOTE | 2018-11-11 13:19 | PRG ---
DATE OF SERVICE: 11/11/2018 SERVICE: Pulmonary medicine. INTERVAL HISTORY: Today, the patient is tearful. She is crying that she wants to go back to the [facility]. She understands why she is here. She does not fully appreciate what the situation is, however. That being said, her blood pressures have firmed up very nicely overnight. PHYSICAL EXAMINATION: VITAL SIGNS: Afebrile, pulse 76, blood pressure 103/51, respirations 13, saturation 100% on 1 L nasal cannula. GENERAL: The patient is awake and alert, in no apparent distress. LUNGS: Very good air entry. There are some dependent crackles and rhonchi present. No prolonged expiratory phase is appreciated. HEART: Normal rate and regular. ABDOMEN: Soft, nontender, nondistended. Bowel sounds are positive. MUSCULOSKELETAL: No cyanosis or clubbing. There is diffuse edema throughout. NEUROLOGIC: Grossly nonfocal. LABORATORY DATA: WBC 8.4, hemoglobin 7.2, and platelets 219,000. INR 1.2. Creatinine 2.95. Basic metabolic profile is otherwise unremarkable. Calcium 7.5. Urine culture is growing Klebsiella and gram-negative. ASSESSMENT: 1. Acute hypoxic respiratory failure. 2. End-stage renal disease, on hemodialysis. 3. Hematoma, multiple, with supratherapeutic INR previously. 4. Hypotension, likely from relative adrenal insufficiency. DISCUSSION AND PLAN: At this point, the patient is stable for transition back to the floor. Pulmonary will continue to follow for the time being. We will continue to follow while the patient remains inhouse. Job ID: [id number] [facility]
[2018-11-11] MEDS: Lactated Ringer's 1,000 ML IV SCH (15:13)
[2018-11-11] MEDS: Cefepime 2 GM in Sodium Chloride 0.9% 100 ML IVPB SCH (19:58)
[2018-11-12 04:43] LABS: #Lymphocytes 0.6 thou/uL (1.20-3.40); #Monocytes 0.3 thou/uL (0.11-0.59); #Neutrophils 6.9 thou/uL (1.40-6.50); %Basophils 0.4 % (0.0-1.0); %Eosinophils 0.6 % (0.0-10.0); %Lymphocytes 7.9 % (21.0-51.0); %Monocytes 3.5 % (0.0-10.0); %Neutrophils 87.5 % (42.0-75.0); Hemoglobin 7.1 g/dL (12.0-16.0); Mean Corpuscular HGB CONC 31.8 g/dL (32.0-36.0); Mean Corpuscular Hemoglobin 32.6 pg (27.0-31.0); Platelet Count 249 thou/uL (130-400); RBC Distribution Width 15.2 % (11.5-14.5); Red Blood Cell (RBC) Count 2.19 mill/uL (4.20-5.40); White Blood Cell (WBC) Count 7.9 thou/uL (4.8-10.8)
[2018-11-12 04:52] LABS: Prothrombin Time 13.5 SEC (12.0-14.7)
[2018-11-12 04:59] LABS: Anion Gap 14 mmol/L (10-20); BUN (Urea Nitrogen) 44 mg/dL (9.8-20.1); Calc. Creatinine Clearance 16 mL/min (70-130); Calcium 7.5 mg/dL (7.8-10.44); Carbon Dioxide 23 mmol/L (23-31); Chloride 100 mmol/L (98-107); Estimated GFR-MDRD 12; Glucose 113 mg/dL (83-110); Potassium 4.6 mmol/L (3.5-5.1); Sodium 132 mmol/L (136-145)
[2018-11-12] MEDS: Levothyroxine Sodium 88 MCG TAB PO SCH (05:37)
[2018-11-12] MEDS: Hydrocortisone Sod Succ/PF 100 mg/2 ml Vial IVP SCH ×3 (05:38→17:55)
--- NOTE | 2018-11-12 06:41 | PDOC.FM ---
- Subjective Subjective: Pt reports feeling weak. She denies any specific source or cause but states it is worse this morning. She has been eating some but reports it gets stuck. She denies chest pain, SOB, or dizziness this morning. - Objective MAR Reviewed: Yes Vital Signs & Weight: Vital Signs (12 hours) Temp Pulse Ox 11/12/18 04:06 98.2 F 11/11/18 23:26 98.4 F 11/11/18 20:00 97.5 F L 97 Weight Admit Weight 79.107 kg Weight 86.273 kg Most Recent Monitor Data Heart Rate from ECG 74 NIBP 114/60 NIBP BP-Mean 78 Respiration from ECG 16 SpO2 98 I&O: 11/10/18 11/11/18 11/12/18 06:59 06:59 06:59 Intake Total 2670 1040 1940 Output Total 2150 250 Balance 390 183 6551 Result Diagrams: 11/12/18 04:20 11/12/18 04:20 Phys Exam - Physical Examination Constitutional: NAD HEENT: moist MMs Neck: no JVD Respiratory: no wheezing Mild crackles at bases Cardiovascular: RRR, no significant murmur Gastrointestinal: soft, non-tender, no distention, positive bowel sounds Musculoskeletal: pulses present, edema present (in all 4 extremities, 2+ pitting ) Neurological: moves all 4 limbs Psychiatric: A&O x 3 Skin: cap refill <2 seconds Dx/Plan (1) Hematoma of lower extremity Code(s): S80.10XA - CONTUSION OF UNSPECIFIED LOWER LEG, INITIAL ENCOUNTER Status: Acute Qualifiers: Encounter type: initial encounter (2) Iron (Fe) deficiency anemia Code(s): D50.9 - IRON DEFICIENCY ANEMIA, UNSPECIFIED Status: Acute Qualifiers: Iron deficiency anemia type: unspecified iron deficiency Qualified Code(s) : D50.9 - Iron deficiency anemia, unspecified (3) Supratherapeutic INR Code(s): R79.1 - ABNORMAL COAGULATION PROFILE Status: Acute (4) Anemia Code(s): D64.9 - ANEMIA, UNSPECIFIED Status: Acute (5) Chronic low back pain Code(s): M54.5 - LOW BACK PAIN; G89.29 - OTHER CHRONIC PAIN Status: Chronic (6) ESRD (end stage renal disease) on dialysis Code(s): N18.6 - END STAGE RENAL DISEASE; Z99.2 - DEPENDENCE ON RENAL DIALYSIS Status: Chronic (7) Folate deficiency Code(s): E53.8 - DEFICIENCY OF OTHER SPECIFIED B GROUP VITAMINS Status: Chronic (8) HTN (hypertension) Code(s): I10 - ESSENTIAL (PRIMARY) HYPERTENSION Status: Chronic Qualifiers: Hypertension type: unspecified Qualified Code(s): I10 - Essential (primary ) hypertension (9) Hypothyroidism Code(s): E03.9 - HYPOTHYROIDISM, UNSPECIFIED Status: Chronic Qualifiers: Hypothyroidism type: unspecified Qualified Code(s): E03.9 - Hypothyroidism , unspecified - Plan Plan: This is an 78 yo female with a pmh of HTN, hypothyroidism, chronic DVTs, ESRD on HD Hematomas of lower extremities bilaterally -Likely 2/2 Supratherapeutic INR -Wound care consulted (11/09) -Dr. García consulted for concern of compartment syndrome DVT of left lower extremity -Distal femoral vein, improving from July. -Will likely need outpt US to follow up on resolution as current hematomas obstruct complete visualization Supratherapeutic INR, resolved -INR 1.0 today UTI 2/2 Klebsiella/Enterobacter -BENTLEY shows Cefepime (11/09) sensitivities, will continue abx for total of 7 days Sepsis vs. chronic hypotension -Blood culture positive 1 of 2 for coag neg Staph-Methicillin resistant, likely contamination -AAOx3 -On rocephin -VSS overnight -Pt is on midodrine, will DC if pt's BP becomes hypertensive -Pt on hydrocortisone (11/09) for back pain and BPs CXR shows right suprahilar parenchymal opacity -Asymptomatic and on cefepime Chronic back pain -Lidocaine patches Dyslipidemia -Continue home Zetia ESRD on HD -Consulted Dr. Reno (11/09), appreciate recommendations Chronic folate/iron deficiency anemia, exacerbated by Hematomas -S/P 2 units of PRBCs during stay -Hgb 7.1 this AM, will continue to monitor -Continue home folate/iron supplementation -FOBT positive, on Iron pills, will monitor for GI blood losses GERD -Sliding hiatal hernia, continue prilosec Hypothyroidism -Continue home levothyroxine Depression -Home cymbalta Addendum - Attending - Attending Attestation Date/Time: 11/12/18 1702 I personally evaluated the patient and discussed the management with Dr. Gallagher. I agree with the History, Examination, Assessment and Plan documented above with any addition or exceptions noted below. Pt is receiving dialysis. The patient will be seen by palliative care. Pt not on anticoagulation currently due to supratherapeutic INR on admission. Pt is anemic. Will check h/h after dialysis and transfuse if needed.
[2018-11-12 08:16] LABS: Vancomycin, Random 16.4 ug/mL (See Comment)
[2018-11-12] MEDS ORDERED: Heparin 10,000 UNITS/ 10 ML VIAL ONE (10:00)
--- NOTE | 2018-11-12 10:01 | PRG ---
DATE OF SERVICE: 11/12/2018 SUBJECTIVE: Ms. Pemberton is an 78-year-old white female followed up by the [facility] for maintenance hemodialysis. She has also been noted to be on the hypotensive side. She has been started on midodrine and sodium chloride tablets. She is improving with the said maneuver. No new complaints. No chest pain or shortness of breath. OBJECTIVE: VITAL SIGNS: Blood pressure is 109/58, heart rate 75, respiratory rate 17, and pulse ox 97%. GENERAL: Exam noted to be awake, alert, supine, comfortable, and not in distress. SKIN: Adequate turgor. HEENT: Pale conjunctivae. Anicteric sclerae. No neck mass. No carotid bruits. No JVD. CHEST: No deformities. LUNGS: Clear breath sounds. HEART: Normal sinus rhythm. No murmurs, gallops, or rubs. ABDOMEN: Globular, soft, and nontender. No masses. EXTREMITIES: No edema. No deformities. MEDICATIONS: Medications of November 12, 2018, reviewed. LABORATORY DATA: Laboratories of November 12, 2018; white count 7.9, hemoglobin 7.1. Sodium 132, potassium 4.6, chloride 100, carbon dioxide 23, BUN 44, creatinine 3.72, glucose 103, and calcium 7.5. ASSESSMENT AND PLAN: 1. End-stage renal disease, stable. Continue current hemodialysis regimen. Fluid removal only as tolerated. The plan is simply to remove a small amount of fluid at 1 L. Continuing heparin free dialysis. 2. Anemia. Consider 1 unit of packed red blood cell. 3. Hypotension, on steroids, midodrine, and sodium chloride tab. Please note, ACTH was noted at 6.8, which is low. 4. Agree with current management. Job ID: [id number]
[2018-11-12] MEDS: Cyanocobalamin (Vitamin B-12) 1,000 MCG TAB PO SCH (10:07)
[2018-11-12] MEDS: Folic Acid 1 MG TAB PO SCH (10:07)
[2018-11-12] MEDS: DULoxetine 60 MG CAP PO SCH (10:07)
[2018-11-12] MEDS: Ezetimibe 10 MG TAB PO SCH (10:07)
[2018-11-12] MEDS: Ferrous Sulfate 325 MG TAB PO SCH (10:07)
[2018-11-12] MEDS: Sevelamer Carbonate 800 MG TAB PO SCH ×3 (10:08→20:18)
[2018-11-12] MEDS: Sodium Chloride 1 GM TAB PO SCH ×3 (10:08→20:18)
[2018-11-12] MEDS: Midodrine HCl 5 MG TAB PO SCH ×3 (10:09→20:18)
[2018-11-12] MEDS: Lidocaine Patch Removal 1 EACH TOP SCH ×2 (10:09→20:23)
[2018-11-12] MEDS ORDERED: Acetaminophen 650 MG in Premix Bag 1 BAG IVPB PRN (10:10)
--- NOTE | 2018-11-12 10:15 | PDOC.PALCO ---
Palliative Care Consult - Consult Details Requesting Physician: Dr Ross Reason for Consult: symptom management, advance directives assistance Family Members Present: [id number] - Pertinent HPI 78 year old female with chronic renal disease requiring dialysis three times a week. Patient is a resident of the [facility]. History of chronic pain to back. Ms Pemberton presented to the emergency room for worsening DVT to lower extremities. Patient initially presented with left femoral DVT in July 2018 and was placed on Warfin, one week ago patient complained of right lower ext pain after injury and diagnosed with a Right DVT as well. After presentation to the emergency room secondary to worsening pain to lower extremity, and abdominal pain radiation to the back, decrease in appetite but denies nausea. Patient was admitted for further management and consult to Palliative Care for assist with advance directives, symptom management, and discussion in relation to disease processes. - Pertinent PMH ESRD with dialysis, depression , hypothyroid, insomnia, iron and folate deficiency related anemia, History of hypertension - Social History Smoking Status: Former smoker Smoking: cigarettes Alcohol Use: none Drug Use History: none Living Situation: longterm resident - Medications MAR Reviewed: Yes - Allergies Allergies/Adverse Reactions: Allergies Allergy/AdvReac Type Severity Reaction Status Date / Time Penicillins Allergy Verified 11/08/18 23:13 - Subjective ROS Denies pain today, heating pad and IV acetaminophen adequately managing pain and limited movement. Reports episode of emesis 11/11 but denies nausea or vomiting today. States weakness and fatigue, lack of appetite. Ms Pemberton states she wants her [id number] to be her MPOAAnna RNeconomist research assistant also present for conversation. [facility] to follow up and complete MPOA. Questions asked in relation to hospice, Anna Espinoza further discussed this and potential of needing to stop dialysis if hospice care was desired. - Objective Vital Signs: Vital Signs - Most Recent Temp Pulse Resp BP Pulse Ox 97.4 F L 81 16 81/44 L 97 11/12/18 07:46 11/09/18 15:35 11/09/18 15:35 11/09/18 15:35 11/12/18 08:00 Palliative Performance Scale: 40 - Physical Exam Deviation from normal: chronically ill, weakness HEENT: moist MMs, EOMI Respiratory: unlabored breathing Cardiovascular: RRR Gastrointestinal: soft, non-tender, positive bowel sounds Musculoskeletal: edema present Deviation from normal: edema to right upper extremity, edema brusing lower extremitites Neurological: moves all 4 limbs Psychiatric: A&O x 3 Deviation from normal: mildly depressed Deviation from normal: Pronounced brusing to lower extremities - Problem List (1) Palliative care encounter Code(s): Z51.5 - ENCOUNTER FOR PALLIATIVE CARE Current Visit: Yes Status: Acute Assessment: Pain related to back and now to lower extremities. IVPB Acetaminophen and PRN Oxycodone 5mg ordered to manage discomfort. (2) Hematoma of lower extremity Code(s): S80.10XA - CONTUSION OF UNSPECIFIED LOWER LEG, INITIAL ENCOUNTER Current Visit: Yes Status: Acute Qualifiers: Encounter type: initial encounter Comments: repositioned patient to promote comfort, states lower extremities pain improved with IVPB acetaminophen (3) CKD (chronic kidney disease) stage 4, GFR 15-29 ml/min Code(s): N18.4 - CHRONIC KIDNEY DISEASE, STAGE 4 (SEVERE) Current Visit: No Status: Chronic (4) Physical deconditioning Code(s): R53.81 - OTHER MALAISE Current Visit: No Status: Chronic Comments: continued weakness, muscle wasting and weakness. On the palliative care program with hospice [facility] - Plan/Recommendations Plan: Transitioned scheduled IVPB Acetaminophen to PRN. Will monitor and if needed schedule. [facility] to complete MPOA listing patient [id number]. Monitor patient episode of emesis, speech evaluated. may suggest Scopolamine Patch if appears related to difficulty clearing secretions. [60] minutes spent on this encounter with >50% of the time in counseling and coordination of care. Thank you for this very appropriate consult.
--- NOTE | 2018-11-12 11:47 | EKG ---
Test Reason : Blood Pressure : / mmHG Vent. Rate : 051 BPM Atrial Rate : 056 BPM P-R Int : 000 ms QRS Dur : 092 ms QT Int : 506 ms P-R-T Axes : 000 -05 051 degrees QTc Int : 466 ms AV dissociated rhythm predominent junctional rhythm Abnormal ECG When compared with ECG of 08-NOV-2018 18:23, Junctional rhythm has replaced Sinus rhythm Vent. rate has decreased BY 33 BPM Nonspecific T wave abnormality no longer evident in Inferior leads Confirmed by DR. Iron THOMPSON (3) on 11/12/2018 11:47:07 AM Referred By: Confirmed By:DR. Iron THOMPSON
--- NOTE | 2018-11-12 13:42 | PRG ---
DATE OF SERVICE: 11/12/2018 SERVICE: Pulmonary Medicine. INTERVAL HISTORY: The patient is doing really well from respiratory standpoint. She is breathing comfortably today. Her blood pressures have firmed up beautifully. She is on dialysis currently without any difficulties. Otherwise, there has been no interval change to her condition. PHYSICAL EXAMINATION: VITAL SIGNS: Afebrile, pulse 75, blood pressure 109/58, respirations 17, and saturation 97% on room air. GENERAL: The patient is awake and alert, in no apparent distress. LUNGS: Decent air entry. Minimal crackles are present dependently. There is a rhonchi present. They cleared with cough, though she has a weak cough. HEART: Normal rate. Regular. ABDOMEN: Soft, nontender, and nondistended. Bowel sounds are positive. MUSCULOSKELETAL: No cyanosis or clubbing. There is diffuse pitting throughout, which is 2 to 3+. NEUROLOGIC: Grossly nonfocal. LABORATORY DATA: WBC 7.9, hemoglobin 7.1 and stable, and platelets 249,000. INR 1.0. Creatinine 3.72. Basic metabolic profile is otherwise unremarkable. Urine cultures growing Enterobacter and Proteus mirabilis. These are organisms that are resistant to Zosyn, meropenem, Rocephin, Ceptaz, and the ampicillins. ASSESSMENT: 1. Acute hypoxic respiratory failure. 2. End-stage renal disease, on hemodialysis. 3. Hematoma, multiple, with supratherapeutic INR. 4. Hypotension, likely secondary to relative adrenal insufficiency. DISCUSSION AND PLAN: The patient's blood pressure has firmed up beautifully. We will discontinue her IV fluids. We will continue to dialyze her and try to approach euvolemia. We will try to mobilize her through time. At this point, she will need to have her anticoagulation resumed pretty soon. When she leaves the ICU, she will have no further requirements for inpatient Pulmonary Critical Care opinion, and I will sign off. Please call with additional questions or concerns through time. Job ID: [id number]
[2018-11-12] MEDS: oxyCODONE 5 MG TAB PO PRN (13:55)
[2018-11-12] MEDS: Lactated Ringer's 1,000 ML IV SCH (13:57)
[2018-11-12] MEDS: Cefepime 2 GM in Sodium Chloride 0.9% 100 ML IVPB SCH (17:55)
[2018-11-13] MEDS: Hydrocortisone Sod Succ/PF 100 mg/2 ml Vial IVP SCH ×5 (00:12→23:20)
[2018-11-13] MEDS: Levothyroxine Sodium 88 MCG TAB PO SCH (05:29)
[2018-11-13 05:52] LABS: #Lymphocytes 0.9 thou/uL (1.20-3.40); #Monocytes 0.4 thou/uL (0.11-0.59); #Neutrophils 6.4 thou/uL (1.40-6.50); %Basophils 0.4 % (0.0-1.0); %Eosinophils 0.6 % (0.0-10.0); %Lymphocytes 11.7 % (21.0-51.0); %Monocytes 5.3 % (0.0-10.0); %Neutrophils 82.1 % (42.0-75.0); Hemoglobin 8.6 g/dL (12.0-16.0); Mean Corpuscular HGB CONC 30.9 g/dL (32.0-36.0); Mean Corpuscular Hemoglobin 30.5 pg (27.0-31.0); Mean Corpuscular Volume 98.8 fL (78.0-98.0); Mean Platelet Volume 6.7 fL (7.4-10.4); Platelet Count 254 thou/uL (130-400); RBC Distribution Width 17.4 % (11.5-14.5); Red Blood Cell (RBC) Count 2.83 mill/uL (4.20-5.40); White Blood Cell (WBC) Count 7.8 thou/uL (4.8-10.8)
[2018-11-13 06:12] LABS: Anion Gap 14 mmol/L (10-20); BUN (Urea Nitrogen) 29 mg/dL (9.8-20.1); Calc. Creatinine Clearance 24 mL/min (70-130); Calcium 7.7 mg/dL (7.8-10.44); Carbon Dioxide 25 mmol/L (23-31); Chloride 101 mmol/L (98-107); Estimated GFR-MDRD 18; Glucose 95 mg/dL (83-110); Potassium 3.9 mmol/L (3.5-5.1); Sodium 136 mmol/L (136-145)
--- NOTE | 2018-11-13 06:23 | PDOC.FM ---
- Subjective Subjective: Pt states she does not feel right this morning. No specific complaints. She reports BUE weakness. - Objective MAR Reviewed: Yes Vital Signs & Weight: Vital Signs (12 hours) Temp Pulse Ox 11/13/18 04:00 97.7 F 11/13/18 00:00 98.1 F 11/12/18 19:50 100 11/12/18 19:41 98.5 F Weight Admit Weight 79.107 kg Weight 87.498 kg Most Recent Monitor Data Heart Rate from ECG 74 NIBP 129/80 NIBP BP-Mean 96 Respiration from ECG 6 SpO2 97 I&O: 11/11/18 11/12/18 11/13/18 06:59 06:59 06:59 Intake Total 1040 1940 790 Output Total 250 Balance 790 1940 790 Result Diagrams: 11/13/18 05:23 11/13/18 05:23 Phys Exam - Physical Examination Constitutional: NAD HEENT: moist MMs Neck: no JVD, full ROM Respiratory: no wheezing crackles at bases bilaterally Cardiovascular: RRR, no significant murmur Gastrointestinal: soft, non-tender, no distention, positive bowel sounds Musculoskeletal: edema present (2+ pitting edema, large hematomas on legs bilaterally) Neurological: moves all 4 limbs Psychiatric: A&O x 3 Skin: cap refill <2 seconds Dx/Plan (1) Hematoma of lower extremity Code(s): S80.10XA - CONTUSION OF UNSPECIFIED LOWER LEG, INITIAL ENCOUNTER Status: Acute Qualifiers: Encounter type: initial encounter (2) Iron (Fe) deficiency anemia Code(s): D50.9 - IRON DEFICIENCY ANEMIA, UNSPECIFIED Status: Acute Qualifiers: Iron deficiency anemia type: unspecified iron deficiency Qualified Code(s) : D50.9 - Iron deficiency anemia, unspecified (3) Supratherapeutic INR Code(s): R79.1 - ABNORMAL COAGULATION PROFILE Status: Acute (4) Anemia Code(s): D64.9 - ANEMIA, UNSPECIFIED Status: Acute (5) Chronic low back pain Code(s): M54.5 - LOW BACK PAIN; G89.29 - OTHER CHRONIC PAIN Status: Chronic (6) ESRD (end stage renal disease) on dialysis Code(s): N18.6 - END STAGE RENAL DISEASE; Z99.2 - DEPENDENCE ON RENAL DIALYSIS Status: Chronic (7) Folate deficiency Code(s): E53.8 - DEFICIENCY OF OTHER SPECIFIED B GROUP VITAMINS Status: Chronic (8) HTN (hypertension) Code(s): I10 - ESSENTIAL (PRIMARY) HYPERTENSION Status: Chronic Qualifiers: Hypertension type: unspecified Qualified Code(s): I10 - Essential (primary ) hypertension (9) Hypothyroidism Code(s): E03.9 - HYPOTHYROIDISM, UNSPECIFIED Status: Chronic Qualifiers: Hypothyroidism type: unspecified Qualified Code(s): E03.9 - Hypothyroidism , unspecified - Plan Plan: his is an 78 yo female with a pmh of HTN, hypothyroidism, chronic DVTs, ESRD on HD Hematomas of lower extremities bilaterally -Likely 2/2 Supratherapeutic INR -Wound care consulted (11/09) -Dr. García consulted for concern of compartment syndrome DVT of left lower extremity -Distal femoral vein, improving from July. -Will likely need outpt US to follow up on resolution as current hematomas obstruct complete visualization Supratherapeutic INR, resolved -INR 1.0 today -Will discuss the need to restart warfarin given the unprovoked nature of her DVTs UTI 2/2 Klebsiella/Enterobacter -BENTLEY shows Cefepime (11/09) sensitivities, will continue abx for total of 7 days Sepsis vs. chronic hypotension -Blood culture positive 1 of 2 for coag neg Staph-Methicillin resistant, likely contamination -AAOx3 -On rocephin -VSS overnight -Pt is on midodrine, will DC if pt's BP becomes hypertensive -Pt on hydrocortisone (11/09) for back pain and BPs CXR shows right suprahilar parenchymal opacity -Asymptomatic and on cefepime Chronic back pain -Lidocaine patches Dyslipidemia -Continue home Zetia ESRD on HD -Consulted Dr. Reno (11/09), appreciate recommendations Chronic folate/iron deficiency anemia, exacerbated by Hematomas -S/P 3 units of PRBCs during stay -Hgb 8.6 this AM, will continue to monitor -Continue home folate/iron supplementation -FOBT positive, on Iron pills, will monitor for GI blood losses GERD -Sliding hiatal hernia, continue prilosec Hypothyroidism -Continue home levothyroxine Depression -Home cymbalta Addendum - Attending - Attending Attestation Date/Time: 11/13/18 1345 I personally evaluated the patient and discussed the management with Dr. Gallagher. I agree with the History, Examination, Assessment and Plan documented above with any addition or exceptions noted below. Restarting warfarin today. Trend INR's. Pt was crying due to right hip pain that is chronic this morning. Will restart home pain meds. Pt received 1 unit prbc's yesterday. H/H stable. Will transfer out of [facility].
--- NOTE | 2018-11-13 09:41 | PRG ---
DATE OF SERVICE: 11/13/2018 SERVICE: Renal Medicine. SUBJECTIVE: Ms. Pemberton is an 78-year-old white female with known history of ESRD, currently on maintenance hemodialysis. She underwent dialysis yesterday without difficulty. During this hospitalization, she developed hypotension. She has been on midodrine as well on sodium chloride tab support. No other complaints today except for diffuse chronic pain. OBJECTIVE: VITAL SIGNS: Blood pressure is 129/80, heart rate is 74, O2 saturation 97%, and temperature 98.4. GENERAL: The patient was noted to be awake, supine, comfortable, not in overt distress. SKIN: Adequate turgor. HEENT: Slightly pale conjunctivae. Anicteric sclerae. NECK: No neck mass. No carotid bruits. No JVD. CHEST: No deformities. LUNGS: Clear breath sounds. No wheezing. No crackles. HEART: Normal sinus rhythm. No murmur. No gallops. No rubs. ABDOMEN: Globular, soft, nontender. No masses. EXTREMITIES: No edema. No deformities. Positive for ecchymosis to the lower legs. MEDICATIONS: Medications of November 13, 2018, were reviewed. LABORATORY DATA: Laboratories of November 13, 2018; white count 7.8, hemoglobin 8.6. Sodium 136, potassium 3.9, chloride 101, carbon dioxide 25, BUN 29, creatinine 2.59, glucose 95, and calcium 7.7. ASSESSMENT AND PLAN: 1. End-stage renal disease, stable. Continue current hemodialysis regimen. Fluid removal only as tolerated. Currently, receiving a 2-hour and 45-minute dialysis treatment. 2. Anemia, received 1 unit packed RBC with dialysis. Continuing Epogen. 3. Chronic hypotension, much improved with midodrine and sodium chloride tabs. Agree with current management. Recheck CBC in a.m. Job ID: [id number]
[2018-11-13] MEDS: oxyCODONE 5 MG TAB PO PRN (10:05)
[2018-11-13] MEDS: Ezetimibe 10 MG TAB PO SCH (10:07)
[2018-11-13] MEDS: Ferrous Sulfate 325 MG TAB PO SCH (10:07)
[2018-11-13] MEDS: Cyanocobalamin (Vitamin B-12) 1,000 MCG TAB PO SCH (10:07)
[2018-11-13] MEDS: Sevelamer Carbonate 800 MG TAB PO SCH ×3 (10:07→20:55)
[2018-11-13] MEDS: Folic Acid 1 MG TAB PO SCH (10:07)
[2018-11-13] MEDS: DULoxetine 60 MG CAP PO SCH (10:07)
[2018-11-13] MEDS: Midodrine HCl 5 MG TAB PO SCH ×3 (10:08→20:55)
[2018-11-13] MEDS: Sodium Chloride 1 GM TAB PO SCH ×3 (10:08→20:55)
[2018-11-13] MEDS: Lidocaine Patch Removal 1 EACH TOP SCH ×2 (10:09→20:55)
--- NOTE | 2018-11-13 13:05 | PRG ---
DATE OF SERVICE: 11/13/2018 SERVICE: Pulmonary Medicine. INTERVAL HISTORY: The patient is doing great from a respiratory standpoint. She is breathing comfortably. She is resting well. She wakes up comfortably, and we were able to have a conversation. Currently, she is in no distress. Her pain is under very good control. PHYSICAL EXAMINATION: VITAL SIGNS: Afebrile, pulse 83, blood pressure 129/80, respirations 14, and saturation 98% on room air. GENERAL: The patient is awake and alert, in no apparent distress. LUNGS: Very good air entry without any prolonged expiratory phase or wheezing present. HEART: Normal rate. Regular. ABDOMEN: Soft, nontender, and nondistended. Bowel sounds are positive. MUSCULOSKELETAL: No cyanosis or clubbing. There is diffuse 3+ pitting throughout. : No Davis. NEUROLOGIC: Grossly nonfocal. LABORATORY DATA: Basic metabolic profile and CBC are unremarkable. Urine catheter is growing Proteus as well as Klebsiella. ASSESSMENT: 1. Acute hypoxic respiratory failure. 2. End-stage renal disease, on hemodialysis. 3. Hematoma, multiple with supratherapeutic INR. 4. Hypotension, likely secondary to relative adrenal insufficiency. 5. Urinary tract infection, status post full course of therapy. DISCUSSION AND PLAN: At this point, the patient remains stable for transition out of the ICU to the medical unit. Pulmonary/Critical Care will continue to follow in this location. She can be converted from her stress dose of steroids back to her home dose of steroid. When she leaves the ICU, she will have no further requirements for inpatient Pulmonary/Critical Care opinion, and I will sign off. I will give her a laboratory holiday tomorrow morning. Job ID: [id number]
[2018-11-13] MEDS ORDERED: Morphine ER 30 MG TAB PO SCH ×2 (14:00→23:00)
[2018-11-13] MEDS: oxyCODONE/Acetaminophen 5 mg/325 mg Tablet PO PRN (18:16)
[2018-11-13] MEDS: Cefepime 2 GM in Sodium Chloride 0.9% 100 ML IVPB SCH (18:17)
[2018-11-14] MEDS ORDERED: Morphine ER 15 MG TAB PO SCH (02:00)
[2018-11-14 05:20] LABS: Band 4 % (5-11); Hemoglobin 8.8 g/dL (12.0-16.0); Lymphocytes 9 % (21-51); MDiff Complete? YES; Mean Corpuscular HGB CONC 31.3 g/dL (32.0-36.0); Mean Corpuscular Hemoglobin 31.4 pg (27.0-31.0); Mean Platelet Volume 6.5 fL (7.4-10.4); Monocytes 7 % (0-10); Neutrophil 80 % (42-75); Platelet Count 251 thou/uL (130-400); RBC Distribution Width 17.1 % (11.5-14.5); Red Blood Cell (RBC) Count 2.81 mill/uL (4.20-5.40); White Blood Cell (WBC) Count 8.9 thou/uL (4.8-10.8)
[2018-11-14] MEDS: Levothyroxine Sodium 88 MCG TAB PO SCH (06:35)
[2018-11-14] MEDS: Hydrocortisone Sod Succ/PF 100 mg/2 ml Vial IVP SCH (06:35)
[2018-11-14] MEDS: oxyCODONE/Acetaminophen 5 mg/325 mg Tablet PO PRN ×2 (06:41→16:54)
--- NOTE | 2018-11-14 08:10 | PDOC.FM ---
- Subjective Subjective: Pt denies pain this morning. She denies any complaints. Reports she is ready to go home - Objective MAR Reviewed: Yes Vital Signs & Weight: Vital Signs (12 hours) Temp Pulse Resp BP BP Pulse Ox 11/14/18 04:00 98.1 F 77 20 154/80 H 94 L 11/13/18 23:30 98.9 F 69 20 176/87 H 96 11/13/18 22:35 96 Weight Admit Weight 79.107 kg Weight 86.727 kg Most Recent Monitor Data Heart Rate from ECG 78 NIBP 122/63 NIBP BP-Mean 82 Respiration from ECG 25 SpO2 98 I&O: 11/13/18 11/14/18 11/15/18 06:59 06:59 06:59 Intake Total 790 900 Output Total 150 Balance 790 750 Result Diagrams: 11/14/18 12:45 11/13/18 05:23 Phys Exam - Physical Examination Constitutional: NAD HEENT: moist MMs Neck: no JVD Respiratory: no wheezing Cardiovascular: RRR Gastrointestinal: soft, no distention, positive bowel sounds Musculoskeletal: edema present (diffuse edema in all 4 extremities) Neurological: moves all 4 limbs Psychiatric: A&O x 3 Skin: cap refill <2 seconds Dx/Plan (1) Hematoma of lower extremity Code(s): S80.10XA - CONTUSION OF UNSPECIFIED LOWER LEG, INITIAL ENCOUNTER Status: Acute Qualifiers: Encounter type: initial encounter (2) Iron (Fe) deficiency anemia Code(s): D50.9 - IRON DEFICIENCY ANEMIA, UNSPECIFIED Status: Acute Qualifiers: Iron deficiency anemia type: unspecified iron deficiency Qualified Code(s) : D50.9 - Iron deficiency anemia, unspecified (3) Supratherapeutic INR Code(s): R79.1 - ABNORMAL COAGULATION PROFILE Status: Acute (4) Anemia Code(s): D64.9 - ANEMIA, UNSPECIFIED Status: Acute (5) Chronic low back pain Code(s): M54.5 - LOW BACK PAIN; G89.29 - OTHER CHRONIC PAIN Status: Chronic (6) ESRD (end stage renal disease) on dialysis Code(s): N18.6 - END STAGE RENAL DISEASE; Z99.2 - DEPENDENCE ON RENAL DIALYSIS Status: Chronic (7) Folate deficiency Code(s): E53.8 - DEFICIENCY OF OTHER SPECIFIED B GROUP VITAMINS Status: Chronic (8) HTN (hypertension) Code(s): I10 - ESSENTIAL (PRIMARY) HYPERTENSION Status: Chronic Qualifiers: Hypertension type: unspecified Qualified Code(s): I10 - Essential (primary ) hypertension (9) Hypothyroidism Code(s): E03.9 - HYPOTHYROIDISM, UNSPECIFIED Status: Chronic Qualifiers: Hypothyroidism type: unspecified Qualified Code(s): E03.9 - Hypothyroidism , unspecified - Plan Plan: this is an 78 yo female with a pmh of HTN, hypothyroidism, chronic DVTs, ESRD on HD Hematomas of lower extremities bilaterally -Likely 2/2 Supratherapeutic INR -Wound care consulted (11/09) -Dr. García consulted for concern of compartment syndrome DVT of left lower extremity -Distal femoral vein, improving from July. -Will likely need outpt US to follow up on resolution as current hematomas obstruct complete visualization Supratherapeutic INR, resolved -Restarting warfarin today. Pt will need close monitoring at the snf UTI 2/2 Klebsiella/Enterobacter -BENTLEY shows Cefepime (11/09) sensitivities, will DC today Sepsis vs. chronic hypotension -Blood culture positive 1 of 2 for coag neg Staph-Methicillin resistant, likely contamination -AAOx3 -On rocephin -VSS overnight -Pt is on midodrine, BP is elevated, consider decreasing to 2.5mg TID -Pt on hydrocortisone (11/09) for back pain and BPs, plan to taper on oral meds outpt CXR shows right suprahilar parenchymal opacity -Asymptomatic and on cefepime Chronic back pain -Lidocaine patches Dyslipidemia -Continue home Zetia ESRD on HD -Consulted Dr. Reno (11/09), appreciate recommendations Chronic folate/iron deficiency anemia, exacerbated by Hematomas -S/P 3 units of PRBCs during stay -Hgb 8.6 this AM, will continue to monitor -Continue home folate/iron supplementation -FOBT positive, on Iron pills, will monitor for GI blood losses GERD -Sliding hiatal hernia, continue prilosec Hypothyroidism -Continue home levothyroxine Depression -Home cymbalta Addendum - Attending - Attending Attestation Date/Time: 11/14/18 [id number] I personally evaluated the patient and discussed the management with Dr. Gallagher. I agree with the History, Examination, Assessment and Plan documented above with any addition or exceptions noted below. Patient's pain is much improved since restarting home pain meds. She was in dialysis and states she feels better. [facility]
[2018-11-14] MEDS ORDERED: Morphine ER 30 MG TAB PO SCH (09:00)
[2018-11-14] MEDS ORDERED: Venlafaxine HCl XR 75 MG CAP PO SCH (09:00)
[2018-11-14] MEDS: Ezetimibe 10 MG TAB PO SCH (09:52)
[2018-11-14] MEDS: Folic Acid 1 MG TAB PO SCH (09:52)
[2018-11-14] MEDS: Sevelamer Carbonate 800 MG TAB PO SCH ×2 (09:52→16:56)
[2018-11-14] MEDS: Ferrous Sulfate 325 MG TAB PO SCH (09:52)
[2018-11-14] MEDS: Cyanocobalamin (Vitamin B-12) 1,000 MCG TAB PO SCH (09:53)
[2018-11-14] MEDS: Midodrine HCl 5 MG TAB PO SCH ×2 (09:54→16:56)
[2018-11-14] MEDS: Sodium Chloride 1 GM TAB PO SCH ×2 (09:59→16:56)
[2018-11-14 12:55] LABS: Hemoglobin 10.8 g/dL (12.0-16.0); Platelet Count 265 thou/uL (130-400)
[2018-11-14 13:37] VITALS: BMI 28.2
--- NOTE | 2018-11-14 14:33 | PQF ---
CLINICAL DOCUMENTATION IMPROVEMENT CLARIFICATION FORM: ICD-10 Updated PLEASE DO AN ADDENDUM TO THE PROGRESS NOTE WITH ANY DOCUMENTATION UPDATES OR ADDITIONS AND CARRY THROUGH TO DC SUMMARY. THANK YOU. DATE: 11/14/2018 ATTN: Dr. Gallagher/ Attending Dr. Hernandez Please exercise your independent, professional judgment in responding to the clarification form. Clinical indicators are provided on the bottom of this form for your review Please check appropriate box(s) to clarify if the following diagnosis has been ruled in or ruled out: Sepsis . [ x ] Ruled in diagnosis [ ] Continue to treat [ x ] Resolved [ ] Ruled out diagnosis [ ] Cannot rule out diagnosis [ ] Other diagnosis [ ] Unable to determine In addition, please specify: Present on Admission (POA): [ ] Yes [ x ] No [ ] Unable to determine For continuity of documentation, please document condition throughout progress notes and discharge summary. Thank You. CLINICAL INDICATORS - SIGNS / SYMPTOMS / LABS 11/12 ([place]) Hypotension, likely secondary to relative adrenal insufficiency. PN 11/14: Sepsis vs. chronic hypotension -Blood culture positive 1 of 2 for coag neg staph-methicillin resistant, likely contamination RISKS: H&P 11/08: Hematoma of LE. Supratherapeutic INR. UTI. ESRD on dialysis. TREATMENT: Order 11/08: Cefepime 2 gm IV for UTI Order 11/09-11/14: Hydrocortisone 50 mg IVP q 6 hrs. Order 11/14: Hydrocortisone 50 mg IVP 0600, 1800 Thank you, Renetta (This form is maintained as a part of the permanent medical record) 2015 [employer], [employer]. All Rights Reserved Renetta Sosa RN, BSN [email or web address] Office: [phone] [facility]
[2018-11-14] MEDS: Lidocaine Patch Removal 1 EACH TOP SCH (16:56)
[2018-11-14] MEDS ORDERED: Warfarin Sodium 3 MG TAB PO SCH (17:00)
[2018-11-14] MEDS ORDERED: Hydrocortisone Sod Succ/PF 100 mg/2 ml Vial IVP SCH (18:00)
--- NOTE | 2018-11-14 18:00 | PRG ---
DATE OF SERVICE: 11/14/2018 SUBJECTIVE: Ms. Pemberton is an 78-year-old white female with ESRD, followed by the [facility] for maintenance hemodialysis. She is currently undergoing dialysis and tolerating said treatment. She was also noted to be hypotensive earlier. We have started her back on midodrine and sodium chloride tabs. She is doing better. She has also received p.r.n. blood transfusion due to the generalized hematoma. No complaints of chest pain or shortness of breath. OBJECTIVE: VITAL SIGNS: Blood pressure is 152/58, heart rate 90, respiratory rate 18, temperature 97.2, and pulse ox 94%. GENERAL: Awake, alert, comfortable, not in distress. SKIN: Adequate turgor. HEENT: Pinkish conjunctivae. Anicteric sclerae. NECK: No neck mass. No carotid bruits. No JVD. CHEST: No deformities. LUNGS: Clear breath sounds. No wheezing. No crackles. HEART: Normal sinus rhythm. No murmur. No gallops. No rubs. ABDOMEN: Globular, soft, nontender. No masses. EXTREMITIES: No edema. No deformities. MEDICATIONS: Medications of November 14, 2018, were reviewed. LABORATORY DATA: Laboratories of November 14, 2018, hemoglobin 10.8. On November 13, 2018, sodium 136, potassium 3.9, chloride 101, carbon dioxide 25, BUN 29, creatinine 2.59, and calcium 7.7. ASSESSMENT AND PLAN: 1. End-stage renal disease, stable. Continuing Monday, Monday, and Monday hemodialysis regimen. Fluid removal only as tolerated. 2. Chronic hypotension, much improved. Currently, on midodrine and sodium chloride tablet supplementation. 3. Anemia, continuing weekly Epogen with this patient. Job ID: [id number]
[2018-11-14 20:32] VITALS: BP 112/63; TEMP 97.8
== END 2018-11-14 17:29 | DRG 604 ==
LOC: ERS 16:47 → 2NO 21:14 → IMCU/EMU 11-09 17:52 → 2NO 11-13 22:46
PROVIDERS: ADMIT Emergency Medicine; ATTEND Emergency Medicine
PROC: 5A1D70Z Performance of Urinary Filtration, Intermittent, Less than 6 Hours Per Day (ICD-10-PCS; principal; 2018-11-09)
PROC: 30233N1 Transfusion of Nonautologous Red Blood Cells into Peripheral Vein, Percutaneous Approach (ICD-10-PCS; 2018-11-09)
DX: S80.12XA Contusion of left lower leg, initial encounter (principal); N18.6 End stage renal disease; J18.9 Pneumonia, unspecified organism; J96.01 Acute respiratory failure with hypoxia; A41.9 Sepsis, unspecified organism; I12.0 Hypertensive chronic kidney disease with stage 5 chronic kidney disease or end stage renal disease; I82.5Z2 Chronic embolism and thrombosis of unspecified deep veins of left distal lower extremity; N39.0 Urinary tract infection, site not specified; L03.115 Cellulitis of right lower limb; M79.81 Nontraumatic hematoma of soft tissue; E11.22 Type 2 diabetes mellitus with diabetic chronic kidney disease; E86.0 Dehydration; E03.9 Hypothyroidism, unspecified; G47.00 Insomnia, unspecified; K21.9 Gastro-esophageal reflux disease without esophagitis; G89.29 Other chronic pain; E27.9 Disorder of adrenal gland, unspecified; E78.5 Hyperlipidemia, unspecified; K44.9 Diaphragmatic hernia without obstruction or gangrene; R79.1 Abnormal coagulation profile; K27.7 Chronic peptic ulcer, site unspecified, without hemorrhage or perforation; F32.9 Major depressive disorder, single episode, unspecified; D63.1 Anemia in chronic kidney disease; Z96.651 Presence of right artificial knee joint; I95.9 Hypotension, unspecified; S80.11XA Contusion of right lower leg, initial encounter; W22.8XXA Striking against or struck by other objects, initial encounter; Z99.2 Dependence on renal dialysis; Z79.4 Long term (current) use of insulin; Z87.440 Personal history of urinary (tract) infections; Z90.710 Acquired absence of both cervix and uterus; Z90.49 Acquired absence of other specified parts of digestive tract; Z87.891 Personal history of nicotine dependence; Z88.0 Allergy status to penicillin; Y93.89 Activity, other specified; Y92.003 Bedroom of unspecified non-institutional (private) residence as the place of occurrence of the external cause
CPT/HCPCS: 36415; 36430; 51701; 71045; 74176; 80048; 80053; 80202; 81003; 81015; 82024; 82088; 82274; 82533; 82550; 83605; 83690; 83880; 84145; 84244; 85014; 85018; 85025; 85610; 85730; 86850; 86900; 86901; 87040; 87077; 87086; 87149; 87186; 93005; 93010; 93970; 94760; 96361; 96365; 96367; 96375; 96376; A4353; C9113; J0131; J0692; J1100; J1644; J1720; J2405; J3010; J3370; J3430; J3490; P9016; Q5105